=== PATIENT | female | born 1940 | race Caucasian/White ===

== ENCOUNTER 2018-01-24 19:07 | Emergency (ER) | END 2018-01-24 21:58 | disposition short-term general hospital (02) ==

== ENCOUNTER 2018-05-24 15:23 | Inpatient (IN) | payer MEDICARE, OTHER ==
[~2018-05-24] VITALS: Ht 154.9 cm; Wt 81.0 kg
[~2018-05-24 15:23] MED LIST: AMLO5TAB4 PO; ATEN50TA PO; CLOP75TA19 PO; ERGO500013 PO; EXEL46P TD; FURO40TA4 PO; ICOS1CAP PO; NATE120T PO; ROSU10TA55 PO
[2018-05-24 15:35] VITALS: Ht 154.9 cm; Wt 81.0 kg
--- NOTE | 2018-05-24 17:33 | ERD ---
ER Documentation Chief Complaint Chief Complaint NEEDS DIALYSIS, CATHETER NEEDS REPLACEMENT, +WEAKNESS/SWELLING/SKIN PALE HPI The patient is a 77-year-old female, presenting to the ER because of malfunctioning hemodialysis catheter on her right chest. Last hemodialysis was 2 days ago. The catheter was replaced recently about 2 weeks ago. She has been on hemodialysis for the last 3 months, Tuesday, Tuesday, Tuesday. She complains of dyspnea and leg edema for 1 day, had similar symptoms previously. She denies fever, chills, neck pain, chest pain, abdominal pain, vomiting, dysuria. She does not smoke nor drink Past medical history: Chronic kidney disease, dyslipidemia, diabetes mellitus, hypertension, CVA, CAD, history of CHF, dementia, chronic encephalopathy Past surgical history: Stent PCI ROS All systems reviewed and are negative except as per history of present illness. Medications Home Meds Reported Medications Rosuvastatin Calcium* (Crestor*) 10 Mg Tablet, 10 MG PO QHS, #30 TAB 05/24/18 Rivastigmine* Patch (Exelon* Patch) 4.6 Mg/24 Hr Patch.td24, 1 PATCH TD DAILY, PATCH 05/24/18 Nateglinide* (Nateglinide*) 120 Mg Tablet, 120 MG PO AC MEALS, TAB 05/24/18 Icosapent Ethyl (VASCEPA) 1 Gm Capsule, 2 GM PO DAILY, CAP 05/24/18 Furosemide* (Furosemide*) 40 Mg Tablet, 40 MG PO DAILY, TAB 05/24/18 Ergocalciferol (Vitamin D2) (VITAMIN D2) 50,000 Unit Capsule, 75968 UNIT PO Q MON, CAP 05/24/18 Clopidogrel Bisulfate* (Clopidogrel Bisulfate*) 75 Mg Tablet, 75 MG PO DAILY, #30 TAB 05/24/18 Atenolol* (Atenolol*) 50 Mg Tablet, 50 MG PO DAILY, #30 TAB 05/24/18 Amlodipine Besylate* (Norvasc*) 5 Mg Tablet, 5 MG PO BID, TAB 05/24/18 Discontinued Reported Medications Furosemide* (Furosemide*) 40 Mg Tablet, 40 MG PO DAILY, TAB 01/24/18 Icosapent Ethyl (VASCEPA) 1 Gm Capsule, 2 GM PO DAILY, CAP 01/24/18 Rosuvastatin Calcium* (Crestor*) 10 Mg Tablet, 10 MG PO QHS, #30 TAB 01/24/18 Nateglinide* (Nateglinide*) 120 Mg Tablet, 120 MG PO AC MEALS, TAB 01/24/18 Ergocalciferol (Vitamin D2) (VITAMIN D2) 50,000 Unit Capsule, 48558 UNIT PO Q MON, CAP 01/24/18 Rivastigmine* Patch (Exelon* Patch) 4.6 Mg/24 Hr Patch.td24, 1 PATCH TD DAILY, PATCH 01/24/18 Amlodipine Besylate* (Norvasc*) 5 Mg Tablet, 5 MG PO BID, TAB 01/24/18 Atenolol* (Atenolol*) 50 Mg Tablet, 50 MG PO DAILY, #30 TAB 01/24/18 Clopidogrel Bisulfate* (Clopidogrel Bisulfate*) 75 Mg Tablet, 75 MG PO DAILY, #30 TAB 01/24/18 Allergies Allergies: Coded Allergies: No Known Allergy (Verified , PER RN, 05/24/18) Uncoded Allergies: CHICKEN (Allergy, Mild, RASHES, 02/26/08) PMhx/Soc History of Surgery: Yes (angiogram, kidney sx, stents) Anesthesia Reaction: No Hx Neurological Disorder: Yes (HAD CVA) Hx Respiratory Disorders: Yes (previous smoker 1/2 PPD quit 30 years ago) Hx Cardiac Disorders: Yes (HTN, DYSLIPIDEMIA, CAD, STENTS) Hx Psychiatric Problems: No Hx Miscellaneous Medical Probl: Yes (angiogram,stents,ME,CAD,HTN,CHF,on HD,dementia,CVA 01/2018) Hx Alcohol Use: No Hx Substance Use: No Hx Tobacco Use: No Physical Exam Vitals Vital Signs Date Temp Pulse Resp B/P (MAP) Pulse Ox O2 O2 Flow FiO2 Time Delivery Rate 05/24/18 98.8 83 27 173/83 100 Nasal 2.0 23:03 (113) Cannula 05/24/18 92 24 180/86 97 Nasal 21:00 (117) Cannula 05/24/18 88 29 178/95 100 Nasal 19:34 (122) Cannula 05/24/18 Nasal 2 18:07 Cannula 05/24/18 98.8 79 20 166/74 100 Room Air 17:50 (104) 05/24/18 97.7 78 20 191/81 99 15:35 (117) Physical Exam Const: No acute distress. Head: Atraumatic. Eyes: Normal Conjunctiva. ENT: Normal External Ears, Nose and Mouth. Neck: Full range of motion. No meningismus. Resp: Bibasilar crackle Cardio: Irregularly irregular Abd: Soft, non distended, normal bowel sounds, non tender. Skin: No petechiae or rashes. Back: No midline or flank tenderness. Ext: Mild bilateral leg edema, no calf tenderness Neur: Awake and alert. No focal deficit Psych: Demented Result Diagram: 05/24/18180205/24/181802 Results 24 hrs Laboratory Tests Test 05/24/18 18:03 White Blood Count 8.8 10^3/ul Red Blood Count 3.37 10^6/ul Hemoglobin 8.6 g/dl Hematocrit 29.6 % Mean Corpuscular Volume 87.8 fl Mean Corpuscular Hemoglobin 25.5 pg Mean Corpuscular Hemoglobin Concent 29.1 g/dl Red Cell Distribution Width 17.5 % Platelet Count 358 10^3/UL Mean Platelet Volume 9.1 fl Immature Granulocytes % 0.500 % Neutrophils % 71.5 % Lymphocytes % 17.8 % Monocytes % 6.5 % Eosinophils % 3.1 % Basophils % 0.6 % Nucleated Red Blood Cells % 0.0 /100WBC Immature Granulocytes # 0.040 10^3/ul Neutrophils # 6.3 10^3/ul Lymphocytes # 1.6 10^3/ul Monocytes # 0.6 10^3/ul Eosinophils # 0.3 10^3/ul Basophils # 0.1 10^3/ul Nucleated Red Blood Cells # 0.0 10^3/ul Prothrombin Time 12.2 Sec Prothrombin Time Ratio 1.0 INR International Normalized Ratio 0.89 Activated Partial Thromboplast Time 27.1 Sec Sodium Level 137 mmol/L Potassium Level 5.3 mmol/L Chloride Level 104 mmol/L Carbon Dioxide Level 25 mmol/L Anion Gap 8 Blood Urea Nitrogen 28 mg/dl Creatinine 4.16 mg/dl Est Glomerular Filtrat Rate mL/min mL/min Glucose Level 92 mg/dl Calcium Level 10.4 mg/dl Troponin I < 0.012 ng/ml Current Medications Medications Dose Sig/Tawana Start Time Status Last (Trade) Ordered Route PRN Stop Time Admin Dose Reason Admin Alteplase, 2 mg ONCE ONCE 05/24/18 DC 05/24/18 Recombinant CATHETER 19:30 19:39 (Cathflo 05/24/18 19:31 (Activase)) 25 mg ONCE ONCE 05/24/18 DC 05/24/18 Diphenhydrami IV 19:30 19:46 ne HCl 05/24/18 19:31 (Benadryl) Bumetanide 2 mg NOW ONCE 05/24/18 DC (Bumex) IV 20:00 05/24/18 20:00 Metolazone 10 mg ONCE ONCE 05/24/18 DC 05/24/18 (Zaroxolyn) PO 19:30 20:45 05/24/18 19:31 0.5 inch ONCE ONCE 05/24/18 DC 05/24/18 Nitroglycerin TD 19:30 19:47 05/24/18 19:31 (Nitroglyceri n 2% Oint) Bumetanide 2 25 ml @ 50 NOW ONCE 05/24/18 DC 05/24/18 mg/ Dextrose mls/hr IV 20:00 20:45 05/24/18 20:29 Procedures/[place] [id number] Radiology Main Line: [phone] DIAGNOSTIC IMAGING REPORT Patient: MARY NOVOA : 1940 Age: 77 Sex: F MR #: [id number] DOS: 05/24/18 1747 Ordering MD: TOYA SINGH MD Location: E/R Room/Bed: PROCEDURE: XR 1 view Chest. CLINICAL INDICATION: Chest pain. TECHNIQUE: Portable Single frontal view of the chest was obtained. COMPARISON: DR CHO 05/11/2018 FINDINGS: There is a stable right double-lumen central venous catheter with tip in the SVC. Moderate cardiomegaly with extensive aortic calcifications. Mild pulmonary vascular ingestion. Stable mild to moderate bilateral pleural effusions with atelectasis/consolidations. No pneumothorax is identified. The osseous structures are intact. There is mild to moderate spondylosis/enthesopathy within the thoracic spine. IMPRESSION: No significant change. Stable right double-lumen central venous catheter with tip in the SVC. Moderate cardiomegaly with extensive aortic calcifications. Mild pulmonary vascular ingestion. Stable mild to moderate bilateral pleural effusions with atelectasi s/consolidations. Further findings as detailed above. RPTAT: HVF .Brien Mathews MD, Date Time Electronically viewed and signed by .Brien Mathews MD, MD on 05/24/2018 18:39 .F/ CC: TOYA SINGH MD [phone] EKG: Read by emergency physician Rate/Rhythm: Atrial fibrillation 78 beats/min QRS, ST, T-waves: No ST elevation, no T inversion, LAD, lateral ST and T abnormality Impression: Abnormal EKG Consultation: I discussed the patient with her vascular surgeon Dr. Meredith, who recommended TPA, if the TPA does not work he would be able to intervene surgically Procedure: She was treated with TPA via her dialysis catheter with good response, good blood return. MEDICAL MAKING DECISION: The patient is an 77-year-old female, presenting with acute fluid overload, acute malfunctioning hemodialysis catheter, acute mild elevated potassium. He was treated with Bumex 2 mg IV, metolazone 10 mg p.o., half an inch of nitroglycerin ointment to acute chest wall for acute fluid overload as recommended by her pickle maker Dr Philip. She was treated with Benadryl 25-day, IV for her pruritus with good response The differential diagnoses considered include but are not limited to asthma, COPD, pneumonia, pulmonary embolus, pleural effusion, congestive heart failure. Departure Diagnosis: Primary Impression: Dialysis catheter clot or failure Additional Impressions: Fluid overload Hyperkalemia Anemia Condition: Stable Comments I discussed the findings with the patient. I discussed the patient with her pickle maker Dr. Philip at 7:15 PM. who was made aware of the lab, the treatment, the patient condition. The patient is admitted to Tel Disclaimer: Inadvertent spelling and grammatical errors are likely due to EHR/dictation software use and do not reflect on the overall quality of patient care. Also, please note that the electronic time recorded on this note does not necessarily reflect the actual time of the patient encounter. TOYA SINGH MD May 24, 2018 17:33
[2018-05-24] MEDS ORDERED: AMLO5TAB4 PO (18:22)
[2018-05-24] MEDS ORDERED: ATEN50TA PO (18:23)
[2018-05-24] MEDS ORDERED: CLOP75TA19 PO (18:23)
[2018-05-24] MEDS ORDERED: ERGO500013 PO (18:24)
[2018-05-24] MEDS ORDERED: FURO40TA4 PO (18:24)
[2018-05-24] MEDS ORDERED: ICOS1CAP PO (18:25)
[2018-05-24] MEDS ORDERED: NATE120T PO (18:25)
[2018-05-24] MEDS ORDERED: EXEL46P TD (18:26)
[2018-05-24] MEDS ORDERED: ROSU10TA55 PO (18:27)
[2018-05-24] MEDS ORDERED: ALTEPLASE (CATHFLO) 2 MG INJ CATHETER ONE (19:30)
[2018-05-24] MEDS ORDERED: NITROGLYCERIN 2% 1 GM OINT PKT TD ONE (19:30)
[2018-05-24] MEDS ORDERED: DIPHENHYDRAMINE 50 MG INJ IV ONE (19:30)
[2018-05-24] MEDS ORDERED: METOLAZONE 10 MG TAB PO ONE (19:30)
[2018-05-24] MEDS ORDERED: BUMETANIDE 1 MG INJ IV ONE (20:00)
[2018-05-24] MEDS ORDERED: BUMETANIDE 2 MG in DEXTROSE 5% 17 ML IV ONE (20:00)
[2018-05-25] VITALS (11 sets, daily range): BP systolic 144–167; BP diastolic 62–97; PULSE 59–90; RESP 18–19
[2018-05-25] MEDS ORDERED: GLUCOSE GEL 15 GRAM TUBE PO PRN ×2 (01:30)
[2018-05-25] MEDS ORDERED: DEXTROSE 50% 50 ML SYRINGE IV PRN ×2 (01:30)
[2018-05-25] MEDS ORDERED: GLUCOSE GEL 15 GRAM TUBE BUCCAL PRN (01:30)
[2018-05-25] MEDS ORDERED: GLUCAGON 1 MG INJ IM PRN (01:30)
[2018-05-25] MEDS: ACCU-CHEK XX SCH (02:00)
[2018-05-25] MEDS: ACETAMINOPHEN 325 MG TAB PO PRN ×3 (02:43→15:29)
[2018-05-25] MEDS ORDERED: HYDROCODONE/APAP (5/325) TAB PO ONE (07:14)
[2018-05-25] MEDS: NATEGLINIDE 120 MG TAB PO SCH ×3 (07:21→17:27)
[2018-05-25] MEDS: ATENOLOL 50 MG TAB PO SCH (08:09)
[2018-05-25] MEDS: CLOPIDOGREL 75 MG TAB PO SCH (08:09)
[2018-05-25] MEDS: AMLODIPINE 5 MG TAB PO SCH ×2 (08:10→21:00)
[2018-05-25] MEDS: RIVASTIGMINE 4.6MG/24H PATCH TRANSDERM SCH (08:10)
[2018-05-25] MEDS: FUROSEMIDE 40 MG TAB PO SCH (08:10)
--- NOTE | 2018-05-25 08:22 | HP ---
DATE OF ADMISSION: 05/24/2018 CHIEF COMPLAINT: Volume overload, swelling, possible dialysis catheter malfunction. HISTORY OF PRESENT ILLNESS: This is a 77-year-old female with a past medical history of hypertension , diabetes, history of end-stage renal disease on dialysis Tuesday, Tuesday, Tuesday with access Perm -A-Cath, history of coronary artery disease, history of atrial fibrillation, history of cerebrovascul ar accident, history of dyslipidemia who presents to [facility] Emergency Room with shortness of breath and possible malfunctioning dialysis catheter. The patient stated last hemodial ysis was approximately 2 days ago. The patient over the last 24 Hours has been complaining of dyspne a, leg edema. She denies any fevers, chills, nausea, vomiting. As a result, she presented to the em ergency room. Upon arrival, the patient had a chest x-ray, which showed findings of cardiomegaly, mi ld pulmonary vascular congestion, atelectasis. In the emergency room, the patient was given diuretic therapy and admitted to telemetry for evaluation. Upon my evaluation of the patient at this time, the patient is complaining of generalized back pain a nd shoulder pain. There is no noted hemoptysis, hematemesis, or hematochezia. Please also note that the patient is confused and history was obtained through a metal bench patternmaker. PAST MEDICAL HISTORY: History of coronary artery disease, diabetes, hypertension, history of cerebro vascular accident and history of atrial fibrillation. PAST SURGICAL HISTORY: Status post Perm-A-Cath placement, status post cardiac catheterization. ALLERGIES: NO KNOWN DRUG ALLERGIES. FAMILY HISTORY: No family history of kidney disease. SOCIAL HISTORY: She does not drink, smoke or do drugs. MEDICATIONS: The patient's medications have been reviewed. REVIEW OF SYSTEMS: A 14-point review of systems was conducted. Pertinent positives stated in HPI, o therwise negative. Please note the patient also is confused. A lot of history was obtained by speak ing to patient's family and through metal bench patternmaker. PHYSICAL EXAMINATION: VITAL SIGNS: Blood pressure is 145/84, respirations 19, pulse 67, temperature 97.7. HEENT: Head is normocephalic. NECK: Supple. HEART: Irregularly irregular. LUNGS: Show diminished breath sounds at the base. ABDOMEN: Soft, nontender to palpation without rebound or guarding. EXTREMITIES: Negative for clubbing, cyanosis. Positive edema. DERMATOLOGIC: No rashes. MUSCULOSKELETAL: No joint effusion. NEUROLOGIC: Limited exam, no obvious focal deficits. LABORATORY DATA: Shows sodium 137, potassium 5.3, BUN 28, creatinine 4.16, calcium 10.4. White coun t 8.8, hemoglobin 8.6, platelet count is 358. ASSESSMENT AND PLAN: 1. Volume overload. Etiology is secondary to end-stage renal disease, with inadequate ultrafiltrati on. Plan at this point is to have hemodialysis with a goal of 2 to 3 liters of fluid removal. We wi ll continue to monitor closely. I encouraged to minimize free water intake. 2. Acute on chronic heart failure. Etiology is secondary to end-stage renal disease as stated above . Continue medical management. Continue ultrafiltration dialysis. 3. End-stage renal disease. The patient is on dialysis Tuesday, Tuesday, and Tuesday. Plan is for hemodialysis today. We will dialyze for 3 hours 2k bath, calcium 2.5. 4. Access. The patient's Perm-A-Cath was recently exchanged 2 weeks ago. If malfunctioning, we jey l consult vascular surgery for [id number] placement. 5. Hyperkalemia. The patient will be dialyzed on 2 potassium bath. 6. Anemia. Monitor hemoglobin and hematocrit levels. Continue Epogen. 7. Mineral bone disorder, monitor calcium and phosphorus levels. 8. Hypertension. Continue current blood pressure regimen. 9. Atrial fibrillation, rate controlled. We will place a cardiology consult for evaluation. The pa tient may require long-term anticoagulation. 10. History of coronary artery disease. Continue medical management. 11. History of cerebrovascular accident. Continue current treatment plan. 12. Diabetes. Continue current insulin regimen. 13. Dyslipidemia. Continue statin therapy. 14. Dementia. Continue Exelon patch. 15. Gastrointestinal and deep vein thrombosis prophylaxis. Dictated By: STEVE REN DO NR/NTS Conf#: [id number] DID#: [id number] CC: SILVIA RENTERIA DO;*EndCC*
[2018-05-25] MEDS: INSULIN ASPART [NOVOLOG] 3 ML PEN SC SCH ×4 (08:48→21:00)
--- NOTE | 2018-05-25 10:32 | CONS ---
Assessment/Plan Cardiology NYHA: III Heart Failure Type: Acute on Chronic Heart Failure Type: Diastolic Assessment/Plan Hospital Course (Demo Recall) Assessment: Acute on chronic diastolic heart failure - secondary to inadequate ultrafiltration Coronary artery disease - details unknown, clinically stable Atrial fibrillation - likely chronic, CHADS2 score of 5 End-stage renal disease Hypertension Diabetes mellitus History of stroke Recommendations: -volume management via hemodialysis as per nephrology -continue anti-hypertensive medications, adjust as needed -continue statin -continue clopidogrel for now, will need to convert to chronic anticoagulation for atrial fibrillation thromboembolic prophylaxis if Permacath exchange not required (currently question of whether there is Permacath malfunction Consultation Date/Type/Reason Admit Date/Time May 24, 2018 at 22:27 Type of Consult Cardiology Reason for Consultation congestive heart failure Date/Time of Note DATE: 05/25/18 TIME: 10:26 Hx of Present Illness The patient is a 77 year-old female with end-stage renal disease who presents with shortness of breath and lower extremity edema. EKG shows atrial fibrillation with controlled ventricular rates, Q waves in V1- V3, and no acute ischemic changes. Troponin is negative. 14 point review of systems negative other than per HPI. Past Medical History Chronic diastolic heart failure Coronary artery disease Atrial fibrillation End-stage renal disease Hypertension Diabetes mellitus History of stroke Home Meds Reported Medications Rosuvastatin Calcium* (Crestor*) 10 Mg Tablet, 10 MG PO QHS, #30 TAB 05/24/18 Rivastigmine* Patch (Exelon* Patch) 4.6 Mg/24 Hr Patch.td24, 1 PATCH TD DAILY, PATCH 05/24/18 Nateglinide* (Nateglinide*) 120 Mg Tablet, 120 MG PO AC MEALS, TAB 05/24/18 Icosapent Ethyl (VASCEPA) 1 Gm Capsule, 2 GM PO DAILY, CAP 05/24/18 Furosemide* (Furosemide*) 40 Mg Tablet, 40 MG PO DAILY, TAB 05/24/18 Ergocalciferol (Vitamin D2) (VITAMIN D2) 50,000 Unit Capsule, 51486 UNIT PO Q MON, CAP 05/24/18 Clopidogrel Bisulfate* (Clopidogrel Bisulfate*) 75 Mg Tablet, 75 MG PO DAILY, #30 TAB 05/24/18 Atenolol* (Atenolol*) 50 Mg Tablet, 50 MG PO DAILY, #30 TAB 05/24/18 Amlodipine Besylate* (Norvasc*) 5 Mg Tablet, 5 MG PO BID, TAB 05/24/18 Discontinued Reported Medications Furosemide* (Furosemide*) 40 Mg Tablet, 40 MG PO DAILY, TAB 01/24/18 Icosapent Ethyl (VASCEPA) 1 Gm Capsule, 2 GM PO DAILY, CAP 01/24/18 Rosuvastatin Calcium* (Crestor*) 10 Mg Tablet, 10 MG PO QHS, #30 TAB 01/24/18 Nateglinide* (Nateglinide*) 120 Mg Tablet, 120 MG PO AC MEALS, TAB 01/24/18 Ergocalciferol (Vitamin D2) (VITAMIN D2) 50,000 Unit Capsule, 34554 UNIT PO Q MON, CAP 01/24/18 Rivastigmine* Patch (Exelon* Patch) 4.6 Mg/24 Hr Patch.td24, 1 PATCH TD DAILY, PATCH 01/24/18 Amlodipine Besylate* (Norvasc*) 5 Mg Tablet, 5 MG PO BID, TAB 01/24/18 Atenolol* (Atenolol*) 50 Mg Tablet, 50 MG PO DAILY, #30 TAB 01/24/18 Clopidogrel Bisulfate* (Clopidogrel Bisulfate*) 75 Mg Tablet, 75 MG PO DAILY, #30 TAB 01/24/18 Medications Current Medications Amlodipine Besylate (Norvasc) 5 mg BID PO Last administered on 05/25/18at 08:10; Admin Dose 5 MG; Start 05/25/18 at 09:00 Atenolol (Tenormin) 50 mg DAILY PO Last administered on 05/25/18at 08:09; Admin Dose 50 MG; Start 05/25/18 at 09:00 Clopidogrel Bisulfate (plaVIX) 75 mg DAILY PO Last administered on 05/25/18at 08:09; Admin Dose 75 MG; Start 05/25/18 at 09:00 Ergocalciferol (Drisdol) 50,000 unit Mo@0900 PO ; Start 05/29/18 at 09:00 Furosemide (Lasix) 40 mg DAILY PO Last administered on 05/25/18at 08:10; Admin Dose 40 MG; Start 05/25/18 at 09:00 Nateglinide (Starlix) 120 mg AC MEALS PO Last administered on 05/25/18at 07:21; Admin Dose 120 MG; Start 05/25/18 at 07:00 Rivastigmine Tartrate (Exelon 4.6 Mg/ 24 Hr Patch) 1 patch DAILY TRANSDERM Last administered on 05/25/18at 08:10; Admin Dose 1 PATCH; Start 05/25/18 at 09:00 Fish Oil (Fish Oil) 1,000 mg Q12 PO ; Start 05/25/18 at 10:00 Atorvastatin Calcium (Lipitor) 40 mg DAILY@21 PO ; Start 05/25/18 at 21:00 Diagnostic Test (Pha) (Accu-Chek) 1 ea 02 XX ; Start 05/25/18 at 02:00 Insulin Aspart (Novolog Insulin Pen) NOVOLOG *MILD* ALGORITHM WITH MEALS BEDTIME SC Last administered on 05/25/18at 08:48; Admin Dose 1 UNIT; Start 05/25/18 at 08:00 Acetaminophen (Tylenol Tab) 650 mg Q6H PRN PO MILD PAIN(1-3)OR ELEVATED TEMP Last administered on 05/25/18at 07:17; Admin Dose 650 MG; Start 05/25/18 at 01:00 Miscellaneous Information 1 ea NOTE XX ; Start 05/25/18 at 01:30 Glucose (Glutose) 15 gm Q15M PRN PO DECREASED GLUCOSE; Start 05/25/18 at 01:30 Glucose (Glutose) 22.5 gm Q15M PRN PO DECREASED GLUCOSE; Start 05/25/18 at 01:30 Dextrose (D50w Syringe) 25 ml Q15M PRN IV DECREASED GLUCOSE; Start 05/25/18 at 01:30 Dextrose (D50w Syringe) 50 ml Q15M PRN IV DECREASED GLUCOSE; Start 05/25/18 at 01:30 Glucagon (Glucagen) 1 mg Q15M PRN IM DECREASED GLUCOSE; Start 05/25/18 at 01:30 Glucose (Glutose) 15 gm Q15M PRN BUCCAL DECREASED GLUCOSE; Start 05/25/18 at 01:30 Allergies: Coded Allergies: No Known Allergy (Verified , PER RN, 05/24/18) Uncoded Allergies: CHICKEN (Allergy, Mild, RASHES, 02/26/08) Family History Significant Family History: no pertinent family hx Social History Smoking Status: Former smoker Exam/Review of Systems Vital Signs Vitals Vital Signs Date Temp Pulse Resp B/P (MAP) Pulse Ox O2 O2 Flow FiO2 Time Delivery Rate 05/25/18 78 08:07 05/25/18 97.7 19 145/84 97 07:10 (104) 05/24/18 Nasal 2.0 23:30 Cannula Labs Result Diagram: 05/24/18 1803 05/24/18 1803 Results 24hrs Laboratory Tests Test 05/24/18 18:03 05/25/18 07:24 05/25/18 08:08 05/25/18 08:44 White Blood Count 8.8 # Red Blood Count 3.37 L Hemoglobin 8.6 L Hematocrit 29.6 L Mean Corpuscular 87.8 Volume Mean Corpuscular 25.5 L Hemoglobin Mean Corpuscular 29.1 L Hemoglobin Concent Red Cell 17.5 H Distribution Width Platelet Count 358 # Mean Platelet Volume 9.1 Immature 0.500 H Granulocytes % Neutrophils % 71.5 Lymphocytes % 17.8 Monocytes % 6.5 Eosinophils % 3.1 Basophils % 0.6 Nucleated Red Blood 0.0 Cells % Immature 0.040 H Granulocytes # Neutrophils # 6.3 Lymphocytes # 1.6 Monocytes # 0.6 Eosinophils # 0.3 Basophils # 0.1 Nucleated Red Blood 0.0 Cells # Prothrombin Time 12.2 Prothrombin Time 1.0 Ratio INR International 0.89 Normalized Ratio Activated 27.1 Partial Thromboplast Time Sodium Level 137 Potassium Level 5.3 H Chloride Level 104 Carbon Dioxide Level 25 Anion Gap 8 Blood Urea Nitrogen 28 H Creatinine 4.16 H Est Glomerular Filtrat Rate mL/min Glucose Level 92 Calcium Level 10.4 H Troponin I < 0.012 Bedside Glucose 100 158 Total Bilirubin 0.0 L Direct Bilirubin 0.00 Indirect Bilirubin 0.0 Aspartate Amino 14 L Transf (AST/SGOT) Alanine 12 L Aminotransferase (AL T/SGPT) Alkaline Phosphatase 65 Total Protein 6.3 Albumin 3.2 L Medications Medications Current Medications Amlodipine Besylate (Norvasc) 5 mg BID PO Last administered on 05/25/18at 08:10; Admin Dose 5 MG; Start 05/25/18 at 09:00 Atenolol (Tenormin) 50 mg DAILY PO Last administered on 05/25/18at 08:09; Admin Dose 50 MG; Start 05/25/18 at 09:00 Clopidogrel Bisulfate (plaVIX) 75 mg DAILY PO Last administered on 05/25/18at 08:09; Admin Dose 75 MG; Start 05/25/18 at 09:00 Ergocalciferol (Drisdol) 50,000 unit Mo@0900 PO ; Start 05/29/18 at 09:00 Furosemide (Lasix) 40 mg DAILY PO Last administered on 05/25/18at 08:10; Admin D ose 40 MG; Start 05/25/18 at 09:00 Nateglinide (Starlix) 120 mg AC MEALS PO Last administered on 05/25/18at 07:21; Admin Dose 120 MG; Start 05/25/18 at 07:00 Rivastigmine Tartrate (Exelon 4.6 Mg/ 24 Hr Patch) 1 patch DAILY TRANSDERM Last administered on 05/25/18at 08:10; Admin Dose 1 PATCH; Start 05/25/18 at 09:00 Fish Oil (Fish Oil) 1,000 mg Q12 PO ; Start 05/25/18 at 10:00 Atorvastatin Calcium (Lipitor) 40 mg DAILY@21 PO ; Start 05/25/18 at 21:00 Diagnostic Test (Pha) (Accu-Chek) 1 ea 02 XX ; Start 05/25/18 at 02:00 Insulin Aspart (Novolog Insulin Pen) NOVOLOG *MILD* ALGORITHM WITH MEALS B EDTIME SC Last administered on 05/25/18at 08:48; Admin Dose 1 UNIT; Start 05/25/18 at 08:00 Acetaminophen (Tylenol Tab) 650 mg Q6H PRN PO MILD PAIN(1-3)OR ELEVATED TEMP Last administered on 05/25/18at 07:17; Admin Dose 650 MG; Start 05/25/18 at 01:00 Miscellaneous Information 1 ea NOTE XX ; Start 05/25/18 at 01:30 Glucose (Glutose) 15 gm Q15M PRN PO DECREASED GLUCOSE; Start 05/25/18 at 01:30 Glucose (Glutose) 22.5 gm Q15M PRN PO DECREASED GLUCOSE; Start 05/25/18 at 01:30 Dextrose (D50w Syringe) 25 ml Q15M PRN IV DECREASED GLUCOSE; Start 05/25/18 at 01:30 Dextrose (D50w Syringe) 50 ml Q15M PRN IV DECREASED GLUCOSE; Start 05/25/18 at 01:30 Glucagon (Glucagen) 1 mg Q15M PRN IM DECREASED GLUCOSE; Start 05/25/18 at 01:30 Glucose (Glutose) 15 gm Q15M PRN BUCCAL DECREASED GLUCOSE; Start 05/25/18 at 01:30 SIMEON ANGELO MD May 25, 2018 10:32
[2018-05-25] MEDS: FISH OIL 1,000 MG CAP PO SCH ×2 (12:12→21:00)
[2018-05-25] MEDS ORDERED: EPOETIN 10000 UNITS/1 ML INJ (ESRD) SC ONE (17:00)
[2018-05-25] MEDS: LISINOPRIL 20 MG TAB PO SCH (17:08)
[2018-05-25] MEDS ORDERED: LORAZEPAM 2 MG INJ IV ONE (17:30)
[2018-05-25] MEDS ORDERED: ALTEPLASE (CATHFLO) 2 MG INJ CATHETER STA (18:16)
[2018-05-25] MEDS: ATORVASTATIN 40 MG TAB PO SCH (21:00)
[2018-05-25] MEDS ORDERED: NON-FORMULARY/PATIENT OWN MED (Rosuvastatin Calcium* (Crestor*) 10 MG) PO SCH (21:00)
[2018-05-25] MEDS: ONDANSETRON 4 MG INJ IV PRN (21:29)
[2018-05-26] VITALS (26 sets, daily range): BP systolic 84–190; BP diastolic 39–84; PULSE 44–80; RESP 18–22
[2018-05-26] MEDS: ONDANSETRON 4 MG INJ IV PRN (01:23)
[2018-05-26] MEDS: ACCU-CHEK XX SCH (02:00)
[2018-05-26] MEDS: HEPARIN 1000 UNITS/ML 10 ML INJ CATHETER SCH (04:05)
[2018-05-26] MEDS: INSULIN ASPART [NOVOLOG] 3 ML PEN SC SCH ×4 (08:00→21:00)
[2018-05-26] MEDS: ATENOLOL 50 MG TAB PO SCH (08:00)
[2018-05-26] MEDS: AMLODIPINE 5 MG TAB PO SCH ×2 (08:00→21:00)
[2018-05-26] MEDS: CLOPIDOGREL 75 MG TAB PO SCH (08:00)
[2018-05-26] MEDS: FUROSEMIDE 40 MG TAB PO SCH (08:00)
[2018-05-26] MEDS: RIVASTIGMINE 4.6MG/24H PATCH TRANSDERM SCH (08:00)
[2018-05-26] MEDS: FISH OIL 1,000 MG CAP PO SCH ×2 (08:06→22:07)
[2018-05-26] MEDS: NATEGLINIDE 120 MG TAB PO SCH ×3 (08:06→17:30)
[2018-05-26] MEDS: LISINOPRIL 20 MG TAB PO SCH (08:07)
--- NOTE | 2018-05-26 12:15 | PN ---
DATE: 05/26/2018 SUBJECTIVE: The patient is stable. Patient has episodes of agitation and confusion. The patient di d have hemodialysis yesterday. Dialysis catheter was noted to have poor blood flow rates. No other events noted. OBJECTIVE: VITAL SIGNS: Blood pressure is 100/51, respirations 22, pulse 74, temperature 98.6. HEENT: Head is normocephalic. NECK: Supple. HEART: Regular rate. LUNGS: Show diminished breath sounds at the base. ABDOMEN: Soft, nontender to palpation without rebound or guarding. EXTREMITIES: Negative for clubbing, cyanosis. Trace edema. DERMATOLOGIC: No rashes. MUSCULOSKELETAL: No joint effusion. NEUROLOGIC: No change in exam. MEDICATIONS: The patient's medications have been reviewed. LABORATORY DATA: Shows white count 15.5, hemoglobin 9.1, platelet count 334. Sodium 137, potassium 4.5, BUN 15, creatinine 2.62. ASSESSMENT AND PLAN: 1. Volume overload. Etiology of end-stage renal disease. The patient is status post ultrafiltratio n dialysis yesterday with ultrafiltration 3 liters. Clinically improving. Continue to monitor. 2. Acute on chronic heart failure secondary to end-stage renal disease, volume overload. Continue m edical management and monitor. 3. Leukocytosis, systemic inflammatory response syndrome. Etiology is unclear if this is an infecti on versus a reactive response. Plan is to place an ID consult for evaluation. Will consider repeat chest x-ray and monitor closely. 4. End-stage renal disease. The patient had hemodialysis yesterday. The patient was noted to have poor blood flow rates and dialysis catheter despite using TPA twice. We will place a vascular surger y consult for evaluation and possible catheter exchange. 5. Access. The patient had recently exchanged of PermCath 2 weeks ago. However, possibly malfunct ioning gait and as the patient despite TPA has poor blood flows. A vascular surgery consult was plac ed with Dr. Meredith. 6. Hyperkalemia, improved. Continue dialysis low potassium bath. 7. Anemia. Monitor hemoglobin and hematocrit levels. Continue Epogen. 8. Questionable bloody stool. The patient had episode of hematochezia yesterday. Stool for OB, how ever, was checked and negative. We will follow up with GI consult and monitor. 9. Mineral bone disorder. Monitor calcium and phosphorus levels. 10. Hypertension. Blood pressure controlled. Continue blood pressure regimen. 11. Atrial fibrillation, rate controlled. Continue medical management. The patient may require reg g-term anticoagulation therapy. 12. Coronary artery disease Continue current treatment plan. 13. History of CVA, continue current treatment plan. 14. Diabetes. Continue current insulin regimen. 15. Dyslipidemia. Continue statin therapy. 16. Acute encephalopathy and dementia, etiology toxic metabolic. Continue his Exelon patch. 17. Gastrointestinal and deep venous thrombosis prophylaxis. Dictated By: STEVE REN DO NR/NTS Conf#: [id number] DID#: [id number] CC: SILVIA RENTERIA DO;*EndCC*
[2018-05-26] MEDS: LUBIPROSTONE 24 MCG CAP PO SCH ×2 (13:00→22:06)
--- NOTE | 2018-05-26 13:21 | CONS ---
DATE OF ADMISSION: 05/24/2018 DATE OF CONSULTATION: 05/26/2018 TYPE OF CONSULTATION: Infectious disease. REASON FOR CONSULTATION: Antibiotic management. HISTORY OF PRESENT ILLNESS: Allen Martel is a 77-year-old female who presented to the Emergency R [facility]om with malfunctioning hemodialysis catheter in her right chest. She complains of weakness. Her la st dialysis was 2 days prior to admission. The catheter was recently replaced 2 weeks ago. She has been on hemodialysis for the last 3 months. She complains of dyspnea and leg edema for 1 day. She d enies fever or chills. PAST SURGICAL PROBLEMS: Include the stent, PCI and hemodialysis catheter placement. PAST MEDICAL HISTORY: Includes: 1. Chronic renal disease. 2. Dyslipidemia. 3. Diabetes mellitus. 4. Hypertension. 5. Cerebrovascular accident. 6. Coronary artery disease with CHF. 7. Dementia. 8. Chronic encephalopathy. Patient also has a history of dementia and CVA, 01/28/2018. On admission, white count was 8.8, H and H of 8.6 and 29.6, platelet count 358,000. She had 72% polys no neutrophils. BUN and creatinine 28 /4.16, glucose of 92. White count today is 15.5, H and H 9.1 and 31, platelet count 334,000. Occult blood was negative. BUN and creatinine 15/2.62. Chest x-ray: No significant change, stable right double lumen central venous catheter with tip in the SVC, mild pulmonary congestion. HOSPITAL COURSE: The patient was seen by Dr. Ribeiro for volume overload, possible dialysis catheter malfunction. The patient was hemodialyzed to minimize free water intake. Patient was seen by [facility] with volume management via hemodialysis. The patient is currently off antibiotic therapy. PHYSICAL EXAMINATION: GENERAL: The patient is an elderly appearing female who is demented, in no acute distress. VITAL SIGNS: Stable. She is afebrile. SKIN: Without generalized rash. HEENT: Within normal limits. NECK: Supple. LYMPH NODES: None palpable. CHEST: Decreased breath sounds at the bases. HEART: Irregularly irregular rhythm. ABDOMEN: Soft, nontender, without organosplenomegaly or masses. EXTREMITIES: Without cyanosis, clubbing, or edema. RECTAL AND GENITAL: Deferred. NEUROLOGIC: No focal neurological abnormality. IMPRESSION AND PLAN: The patient comes in with possible dialysis catheter malfunction, which could b e on the basis of infection; however, aside from elevated white count at present time, I do not see a ny evidence of infection. Her temperature 98.6. We will continue to observe. I think we will get 2 sets of blood cultures. I will dictate my findings to the hospitalist and to Dr. Ribeiro and Dr. Andrea rodriguez. Dictated By: CEDRIC CEDEÑO MD, JD/ILSA Conf#: [id number] DID#: [id number] CC: SILVIA RENTERIA DO;*EndCC*
--- NOTE | 2018-05-26 13:50 | CONS ---
Assessment/Plan Cardiology NYHA: III Heart Failure Type: Acute on Chronic Heart Failure Type: Diastolic Assessment/Plan Hospital Course (Demo Recall) Assessment: Acute on chronic diastolic heart failure - secondary to inadequate ultrafiltration Coronary artery disease - details unknown, clinically stable Atrial fibrillation - likely chronic, CHADS2 score of 5 End-stage renal disease Hypertension Diabetes mellitus History of stroke Recommendations: -volume management via hemodialysis as per nephrology -continue anti-hypertensive medications, adjust as needed -continue statin -continue clopidogrel for now, will need to convert to chronic anticoagulation for atrial fibrillation thromboembolic prophylaxis if Permacath exchange not required (currently question of whether there is Permacath malfunction Consultation Date/Type/Reason Admit Date/Time May 24, 2018 at 22:27 Initial Consult Date Type of Consult Cardiology Date/Time of Note DATE: 05/26/18 TIME: 13:49 24 HR Interval Summary Free Text/Dictation Had hemodialysis yesterday. Catheter reported to have slow blood flow rates. Awaiting vascular surgery evaluation for possible dialysis catheter malfunction and need for replacement. Detailed Summary Additional Comments 14 point review of systems without changes. Exam/Review of Systems Vital Signs Vitals Vital Signs Date Temp Pulse Resp B/P (MAP) Pulse Ox O2 O2 Flow FiO2 Time Delivery Rate 05/26/18 54 12:06 05/26/18 105/43 11:05 (63) 05/26/18 Nasal 2.0 08:00 Cannula 05/26/18 98.6 22 07:37 05/26/18 100 04:00 Intake and Output 05/25/18 05/25/18 05/26/18 1515:00 23:00 07:00 IntakeIntake Total 200 ml 250 ml OutputOutput Total 3 ml 3400 ml BalanceBalance 197 ml -3150 ml Exam Exam Constitutional: alert; No oriented, No distress Neck: jvd (8cm) Respiratory: crackles/rales (to mid lungs ); No clear to auscultation Cardiovascular: regular rate and rhythm, systolic murmur (2/6 CURT); No edema Gastrointestinal: soft, non-tender; No distended Neurological: nl mental status, nl speech Labs Result Diagram: 05/26/1852105/26/1822 Results 24hrs Laboratory Tests Test 05/25/18 16:09 05/25/18 17:20 05/25/18 21:27 05/26/18 05:22 Iron Level 45 Total Iron Binding 255 Capacity Percent Iron 18 L Saturation Ferritin 56.5 Bedside Glucose 84 88 White Blood Count 15.5 #H Red Blood Count 3.46 L Hemoglobin 9.1 L Hematocrit 31.0 L Mean Corpuscular 89.6 Volume Mean Corpuscular 26.3 L Hemoglobin Mean Corpuscular 29.4 L Hemoglobin Concent Red Cell 17.0 H Distribution Width Platelet Count 334 Mean Platelet Volume 9.3 Immature 0.600 H Granulocytes % Neutrophils % 88.5 H Lymphocytes % 6.5 L Monocytes % 3.3 Eosinophils % 0.8 Basophils % 0.3 Nucleated Red Blood 0.0 Cells % Immature 0.090 H Granulocytes # Neutrophils # 13.7 H Lymphocytes # 1.0 Monocytes # 0.5 Eosinophils # 0.1 Basophils # 0.0 Nucleated Red Blood 0.0 Cells # Sodium Level 137 Potassium Level 4.5 Chloride Level 96 L Carbon Dioxide Level 30 Anion Gap 11 Blood Urea Nitrogen 15 # Creatinine 2.62 #H Est Glomerular Filtrat Rate mL/min Glucose Level 109 Calcium Level 9.1 Phosphorus Level 3.7 Magnesium Level 1.7 Test 05/26/18 08:02 05/26/18 12:03 Bedside Glucose 117 71 Medications Medications Current Medications Amlodipine Besylate (Norvasc) 5 mg BID PO Last administered on 05/26/18 08:00; Admin Dose 5 MG; Start 05/25/18 at 09:00 Atenolol (Tenormin) 50 mg DAILY PO Last administered on 05/26/18 08:00; Admin Dose 50 MG; Start 05/25/18 at 09:00 Clopidogrel Bisulfate (plaVIX) 75 mg DAILY PO Last administered on 05/26/18 08:00; Admin Dose 75 MG; Start 05/25/18 at 09:00 Ergocalciferol (Drisdol) 50,000 unit Mo@0900 PO ; Start 05/29/18 at 09:00 Furosemide (Lasix) 40 mg DAILY PO Last administered on 05/26/18at 08:00; Admin Dose 40 MG; Start 05/25/18 at 09:00 Nateglinide (Starlix) 120 mg AC MEALS PO Last administered on 05/26/18 08:06; Admin Dose 120 MG; Start 05/25/18 at 07:00 Rivastigmine Tartrate (Exelon 4.6 Mg/ 24 Hr Patch) 1 patch DAILY TRANSDERM Last administered on 05/26/18at 08:00; Admin Dose 1 PATCH; Start 05/25/18 at 09:00 Fish Oil (Fish Oil) 1,000 mg Q12 PO Last administered on 05/26/18at 08:06; Admin Dose 1,000 MG; Start 05/25/18 at 10:00 Atorvastatin Calcium (Lipitor) 40 mg DAILY@21 PO ; Start 05/25/18 at 21:00 Diagnostic Test (Pha) (Accu-Chek) 1 ea 02 XX ; Start 05/25/18 at 02:00 Insulin Aspart (Novolog Insulin Pen) NOVOLOG *MILD* ALGORITHM WITH MEALS BEDTIME SC Last administered on 05/25/18at 08:48; Admin Dose 1 UNIT; Start 05/25/18 at 08:00 Acetaminophen (Tylenol Tab) 650 mg Q6H PRN PO MILD PAIN(1-3)OR ELEVATED TEMP Last administered on 05/25/18at 15:29; Admin Dose 650 MG; Start 05/25/18 at 01:00 Miscellaneous Information 1 ea NOTE XX ; Start 05/25/18 at 01:30 Glucose (Glutose) 15 gm Q15M PRN PO DECREASED GLUCOSE; Start 05/25/18 at 01:30 Glucose (Glutose) 22.5 gm Q15M PRN PO DECREASED GLUCOSE; Start 05/25/18 at 01:30 Dextrose (D50w Syringe) 25 ml Q15M PRN IV DECREASED GLUCOSE; Start 05/25/18 at 01:30 Dextrose (D50w Syringe) 50 ml Q15M PRN IV DECREASED GLUCOSE; Start 05/25/18 at 01:30 Glucagon (Glucagen) 1 mg Q15M PRN IM DECREASED GLUCOSE; Start 05/25/18 at 01:30 Glucose (Glutose) 15 gm Q15M PRN BUCCAL DECREASED GLUCOSE; Start 05/25/18 at 01:30 Epoetin Domingo (Epogen (Esrd)) 10,000 units MoWeFr@17 SC ; Start 05/26/18 at 17:00 Lisinopril (Zestril) 40 mg DAILY PO Last administered on 05/26/18at 08:07; Admin Dose 40 MG; Start 05/25/18 at 16:00 Hydralazine HCl (Apresoline) 25 mg Q8 PO ; Start 05/25/18 at 16:00; Status Hold Melatonin (Melatonin) 5 mg HS PRN PO insomnia; Start 05/25/18 at 16:00 Ondansetron HCl (Zofran Inj) 4 mg Q4H PRN IV NAUSEA AND/OR VOMITING Last administered on 05/26/18at 01:23; Admin Dose 4 MG; Start 05/25/18 at 21:00 Heparin Sodium (Porcine) (Heparin (1000 Units/ml)) 4,500 unit AFTER DIALYSIS CATHETER Last administered on 05/26/18at 04:05; Admin Dose 4,500 UNIT; Start 05/26/18 at 01:30 Lubiprostone (Amitiza) 24 mcg BID PO ; Start 05/26/18 at 13:00 SIMEON ANGELO MD May 26, 2018 13:50
--- NOTE | 2018-05-26 14:03 | CONS ---
DATE OF ADMISSION: 05/24/2018 DATE OF CONSULTATION: TYPE OF CONSULTATION: Gastroenterology. HISTORY OF PRESENT ILLNESS: The patient is a 77-year-old female with a history of diabetes mellitus, renal failure, atrial fibrillation, CVA, was admitted to the hospital for shortness of breath and ma lfunctioning of the dialysis catheter. GI consult was called in because she had some rectal bleeding . The patient is also constipated. Stool for occult blood was negative. No further information cou ld be obtained from the patient. All the information was gathered by discussion with the staff nurse . PAST MEDICAL HISTORY: As described. PAST SURGICAL HISTORY: PermCath. ALLERGIES: NONE. FAMILY HISTORY: Negative. SOCIAL HISTORY: Negative. REVIEW OF SYSTEMS: Negative. PHYSICAL EXAMINATION GENERAL: Well-built, nourished, not in distress. VITAL SIGNS: Stable. HEENT: Unremarkable. NECK: Supple. No thyromegaly, no lymphadenopathy. CARDIOVASCULAR: No murmur, gallop or click. LUNGS: Clear. ABDOMEN: Benign. EXTREMITIES: No edema. CENTRAL NERVOUS SYSTEM: Awake, alert, not in distress and moves all the extremities. LABORATORY DATA: Hematocrit is 31, which is stable. BUN 15, creatinine is 2.62. LFT within normal limits. INR within normal limits. MEDICATION LIST: Reviewed. IMPRESSION: 1. Rectal bleeding which is stable now. 2. Severe constipation. 3. Renal failure. 4. Mild anemia. 5. Hypertension. 6. Atrial fibrillation. 7. Diabetes mellitus. 8. Dementia. PLAN: At this point is to start the patient on a stool softener. If the family agrees, then we will proceed with colonoscopy. Before, the patient is placed on any kind of blood thinner for atrial fib rillation. Thank you again for the referral. Dictated By: LORETTA DELGADO/NTS Conf#: [id number] DID#: [id number] CC: STEVE REN DO; SILVIA RENTERIA DO;*EndCC*
[2018-05-26] MEDS: EPOETIN 10000 UNITS/1 ML INJ (ESRD) SC SCH (17:39)
[2018-05-26] MEDS ORDERED: FENTAnyl 50 MCG/ML VIAL ONE (18:49)
[2018-05-26] MEDS ORDERED: MIDAZOLAM 1 MG/ML 2 ML INJ ONE (18:52)
[2018-05-26] MEDS ORDERED: HEPARIN 1000 UNITS/ML 10 ML INJ ONE (18:53)
[2018-05-26] MEDS ORDERED: LIDOCAINE 1% (MDV) 20 ML INJ ONE (18:56)
--- NOTE | 2018-05-26 19:00 | OPR ---
Date/Time of Note Date/Time of Note DATE: 05/26/18 TIME: 18:58 Operative Report Procedure Date: May 26, 2018 Preoperative Diagnosis End-stage renal disease Postoperative Diagnosis Same Operation/Procedure Performed Right internal jugular vein 23 cm tunneled hemodialysis catheter placement Surgeon see signature line Coin Dealer None Anesthesia Type: MAC Estimated Blood Loss: minimal Transfusion none Specimen None Grafts/Implants none Complications none Disposition: PACU Procedure Description She was placed in supine position prepped and draped in usual sterile fashion timeout was called I started the previous catheter was in place guidewire was advanced through it without any difficulties although under fluoroscopic guidance this was a Glidewire with the soft tip the previous cuff of the c atheter was released from the surrounding tissues using Metzenbaum scissors after injecting 10 cc of 1% lidocaine The previous catheter was removed and the new Catheter which was a palindrome 23 cm was advanced over the wire under fluoroscopic guidance the tip was placed at the junction of the superior vena cava and right atrium both ports of the catheter were aspirated and injected using heparinized saline solution the catheter was secured to skin using 2-0 nylon sutures exit site was closed using a single 3-0 Vicryl suture in interrupted fashion patient tolerated procedure well end of dictation JOLANTA BEAUCHAMP MD May 26, 2018 19:00
[2018-05-26] MEDS: ATORVASTATIN 40 MG TAB PO SCH (22:06)
[2018-05-26] MEDS: MELATONIN 5 MG TABLET PO PRN (22:07)
[2018-05-27] VITALS (13 sets, daily range): BP systolic 112–125; BP diastolic 51–60; PULSE 38–69; RESP 17–20
[2018-05-27] MEDS: ACCU-CHEK XX SCH (02:00)
[2018-05-27] MEDS: INSULIN ASPART [NOVOLOG] 3 ML PEN SC SCH ×4 (08:00→21:00)
[2018-05-27] MEDS: FISH OIL 1,000 MG CAP PO SCH ×2 (08:55→21:22)
[2018-05-27] MEDS: CLOPIDOGREL 75 MG TAB PO SCH (08:55)
[2018-05-27] MEDS: LUBIPROSTONE 24 MCG CAP PO SCH ×2 (08:56→21:22)
[2018-05-27] MEDS: NATEGLINIDE 120 MG TAB PO SCH ×3 (08:56→18:47)
[2018-05-27] MEDS: RIVASTIGMINE 4.6MG/24H PATCH TRANSDERM SCH (08:56)
[2018-05-27] MEDS: ATENOLOL 50 MG TAB PO SCH ×2 (08:58→09:01)
[2018-05-27] MEDS: FUROSEMIDE 40 MG TAB PO SCH (08:58)
[2018-05-27] MEDS: LISINOPRIL 20 MG TAB PO SCH (08:59)
[2018-05-27] MEDS: AMLODIPINE 5 MG TAB PO SCH ×3 (08:59→21:00)
[2018-05-27] MEDS: ONDANSETRON 4 MG INJ IV PRN (12:47)
--- NOTE | 2018-05-27 14:22 | CONS ---
Assessment/Plan Assessment/Plan Assessment/Plan (Daily) IMPRESSION: 1. Rectal bleeding which is stable now. 2. Severe constipation. 3. Renal failure. 4. Mild anemia. 5. Hypertension. 6. Atrial fibrillation. 7. Diabetes mellitus. 8. Dementia. Plan Monitor for GI bleeding patient is on Plavix Continue Amitiza for constipation If family agrees will proceed with colonoscopy Consultation Date/Type/Reason Admit Date/Time May 26, 2018 at 15:55 Initial Consult Date Date/Time of Note DATE: 05/27/18 TIME: 14:21 24 HR Interval Summary Free Text/Dictation No further bleeding as per the staff Constitutional: improved Exam/Review of Systems Exam Vitals Vital Signs Date Temp Pulse Resp B/P (MAP) Pulse Ox O2 O2 Flow FiO2 Time Delivery Rate 05/27/18 59 13:04 05/27/18 98.3 18 113/57 94 11:21 (75) 05/26/18 Nasal 2.0 20:00 Cannula Intake and Output 05/26/18 05/26/18 05/27/18 1515:00 23:00 07:00 IntakeIntake Total 200 ml 300 ml OutputOutput Total 3 ml BalanceBalance 200 ml 297 ml Constitutional: alert, oriented, well developed Psych: no complaints, nl mood/affect Head: normocephalic, atraumatic Eyes: nl conjunctiva, EOMI, nl lids, nl sclera, PERRL ENMT: nl external ears & nose, nl lips & teeth, nl nasal mucosa & septum Neck: supple, non-tender Respiratory: clear to auscultation, normal air movement Cardiovascular: regular rate and rhythm, nl pulses Gastrointestinal: soft, nl liver, spleen, non-tender Musculoskeletal: nl extremities to inspection, nl gait and stance Extremities: normal pulses Neurological: FLAT CLOTHIER II-XII intact, nl mental status, nl speech, nl strength Skin: nl turgor; No rash or lesions Lymph: nl lymph nodes Results Result Diagram: 05/27/1852005/27/18520 Results 24hrs Laboratory Tests Test 05/26/18 17:29 05/26/18 21:55 05/27/18 05:21 05/27/18 07:50 Bedside Glucose 79 129 83 White Blood Count 7.3 # Red Blood Count 3.06 L Hemoglobin 8.3 L Hematocrit 27.7 L Mean Corpuscular 90.5 Volume Mean Corpuscular 27.1 L Hemoglobin Mean Corpuscular 30.0 L Hemoglobin Concent Red Cell 16.9 H Distribution Width Platelet Count 288 Mean Platelet Volume 9.7 Immature 0.300 Granulocytes % Neutrophils % 72.0 Lymphocytes % 18.4 Monocytes % 7.4 Eosinophils % 1.5 Basophils % 0.4 Nucleated Red Blood 0.0 Cells % Immature 0.020 Granulocytes # Neutrophils # 5.3 Lymphocytes # 1.4 Monocytes # 0.5 Eosinophils # 0.1 Basophils # 0.0 Nucleated Red Blood 0.0 Cells # Sodium Level 137 Potassium Level 4.1 Chloride Level 95 L Carbon Dioxide Level 32 H Anion Gap 10 Blood Urea Nitrogen 26 #H Creatinine 3.71 #H Est Glomerular Filtrat Rate mL/min Glucose Level 76 Calcium Level 10.0 Phosphorus Level 6.3 #H Magnesium Level 1.8 Test 05/27/18 12:53 Bedside Glucose 84 Medications Medication Current Medications Amlodipine Besylate (Norvasc) 5 mg BID PO Last administered on 05/26/18 08:00; Admin Dose 5 MG; Start 05/25/18 at 09:00 Atenolol (Tenormin) 50 mg DAILY PO Last administered on 05/26/18 08:00; Admin Dose 50 MG; Start 05/25/18 at 09:00 Clopidogrel Bisulfate (plaVIX) 75 mg DAILY PO Last administered on 05/27/18 08:55; Admin Dose 75 MG; Start 05/25/18 at 09:00 Ergocalciferol (Drisdol) 50,000 unit Mo@0900 PO ; Start 05/29/18 at 09:00 Furosemide (Lasix) 40 mg DAILY PO Last administered on 05/27/18 08:58; Admin Dose 40 MG; Start 05/25/18 at 09:00 Nateglinide (Starlix) 120 mg AC MEALS PO Last administered on 05/27/18 12:47; Admin Dose 120 MG; Start 05/25/18 at 07:00 Rivastigmine Tartrate (Exelon 4.6 Mg/ 24 Hr Patch) 1 patch DAILY TRANSDERM Last administered on 05/27/18 08:56; Admin Dose 1 PATCH; Start 05/25/18 at 09:00 Fish Oil (Fish Oil) 1,000 mg Q12 PO Last administered on 2/16/19at 08:55; Admin Dose 1,000 MG; Start 05/25/18 at 10:00 Atorvastatin Calcium (Lipitor) 40 mg DAILY@21 PO Last administered on 05/26/18 22:06; Admin Dose 40 MG; Start 05/25/18 at 21:00 Diagnostic Test (Pha) (Accu-Chek) 1 ea 02 XX ; Start 05/25/18 at 02:00 Insulin Aspart (Novolog Insulin Pen) NOVOLOG *MILD* ALGORITHM WITH MEALS BEDTIME SC Last administered on 05/25/18at 08:48; Admin Dose 1 UNIT; Start 05/25/18 at 08:00 Acetaminophen (Tylenol Tab) 650 mg Q6H PRN PO MILD PAIN(1-3)OR ELEVATED TEMP Last administered on 05/25/18at 15:29; Admin Dose 650 MG; Start 05/25/18 at 01:00 Miscellaneous Information 1 ea NOTE XX ; Start 05/25/18 at 01:30 Glucose (Glutose) 15 gm Q15M PRN PO DECREASED GLUCOSE; Start 05/25/18 at 01:30 Glucose (Glutose) 22.5 gm Q15M PRN PO DECREASED GLUCOSE; Start 05/25/18 at 01:30 Dextrose (D50w Syringe) 25 ml Q15M PRN IV DECREASED GLUCOSE; Start 05/25/18 at 01:30 Dextrose (D50w Syringe) 50 ml Q15M PRN IV DECREASED GLUCOSE; Start 05/25/18 at 01:30 Glucagon (Glucagen) 1 mg Q15M PRN IM DECREASED GLUCOSE; Start 05/25/18 at 01:30 Glucose (Glutose) 15 gm Q15M PRN BUCCAL DECREASED GLUCOSE; Start 05/25/18 at 01:30 Epoetin Domingo (Epogen (Esrd)) 10,000 units MoWeFr@17 SC Last administered on 05/26/18at 17:39; Admin Dose 10,000 UNITS; Start 05/26/18 at 17:00 Lisinopril (Zestril) 40 mg DAILY PO Last administered on 05/26/18at 08:07; Admin Dose 40 MG; Start 05/25/18 at 16:00 Melatonin (Melatonin) 5 mg HS PRN PO insomnia Last administered on 05/26/18at 22:07; Admin Dose 5 MG; Start 05/25/18 at 16:00 Ondansetron HCl (Zofran Inj) 4 mg Q4H PRN IV NAUSEA AND/OR VOMITING Last administered on 05/27/18at 12:47; Admin Dose 4 MG; Start 05/25/18 at 21:00 Heparin Sodium (Porcine) (Heparin (1000 Units/ml)) 4,500 unit AFTER DIALYSIS CATHETER Last administered on 05/26/18 04:05; Admin Dose 4,500 UNIT; Start 05/26/18 at 01:30 Lubiprostone (Amitiza) 24 mcg BID PO Last administered on 05/27/18at 08:56; Admin Dose 24 MCG; Start 05/26/18 at 13:00 LORTETA STEVENSON MD May 27, 2018 14:22
--- NOTE | 2018-05-27 15:35 | PN ---
DATE: 05/27/2018 SUBJECTIVE: The patient is stable. The patient had a Perm-A-Cath placed yesterday without any compl ications. The patient had no further episodes of bleeding noted. The patient was seen by [facility]log[facility] and recommend a colonoscopy. Please note I did discuss with the patient's son in detail about having a colonoscopy and the risks and benefits of anticoagulation. The patient's son did not want to have colonoscopy at this time and did not want to have full anticoagulation at this time. No othe r events noted. OBJECTIVE: VITAL SIGNS: Blood pressure 122/59, respirations 20, pulse is 63, temperature 98.2. HEENT: Head is normocephalic. NECK: Supple. HEART: Regular rate. LUNGS: Show diminished breath sounds at the base. ABDOMEN: Soft, nontender to palpation without rebound or guarding. EXTREMITIES: Negative for clubbing, cyanosis, no edema. DERMATOLOGIC: No rashes. MUSCULOSKELETAL: No joint effusion. NEUROLOGIC: No change in exam. MEDICATIONS: Reviewed. LABORATORY DATA: Has been reviewed, showed patient has sodium 137, potassium 4.1, BUN 26, creatinine 3.71 phosphorus 6.3. White count 7.3, hemoglobin 8.3, platelet count 288. ASSESSMENT AND PLAN: 1. Volume overload. Etiology secondary to end-stage renal disease. The patient is clinically impro ving. Continue ultrafiltration with dialysis. 2. Acute on chronic heart failure secondary to end-stage renal disease. The patient clinically impr oving. 3. Leukocytosis, SIRS etiology, likely reactive. The patient was seen by infectious diseasenathalie not on antibiotic therapy. We will monitor closely. We will follow up recommendations per ID. 4. End-stage renal disease. Plan is for hemodialysis today. The patient is status post Perm-A-Cath exchange yesterday. 5. Access. Patient is status post PermCath exchanged per vascular surgery. We will continue local access care. 6. Hypokalemia, improved. 7. Anemia. Continue to monitor hemoglobin and hematocrit levels. Continue Epogen. 8. Questionable hematochezia. The patient had 1 episode of bloody stool. Stool OB was negative. A ppreciate GI's evaluation. Recommend colonoscopy, currently being refused by patient's son. 9. Mineral bone disorder, monitor calcium and phosphorus levels. 10. Hypertension. Blood pressure controlled. Will adjust blood pressure medication. 11. Atrial fibrillation. Continue medical management. The patient's son was offered anticoagulatio n long-term, but he is currently unclear if he will pursue long-term anticoagulation, currently on Pl avix. We will continue to monitor. 12. Coronary artery disease. Continue medical management. 13. History of CVA. Continue current treatment plan. 14. Diabetes. Continue current insulin regimen. 15. Dyslipidemia. Continue statin therapy. 16. Acute encephalopathy and dementia, etiology toxic metabolic. The patient's mental status is imp roving. Continue Exelon patch. 17. Gastrointestinal and deep vein thrombosis prophylaxis. Dictated By: STEVE REN DO NR/NTS Conf#: [id number] DID#: [id number] CC: SILVIA RENTERIA DO;*EndCC*
[2018-05-27] MEDS ORDERED: ALTEPLASE (CATHFLO) 2 MG INJ CATHETER SCH (17:30)
--- NOTE | 2018-05-27 17:54 | CONS ---
Assessment/Plan Assessment/Plan Hospital Course (Demo Recall) ID PROGRESS NOTE CURRENT ABX: DAY # OFF ABX 24H INTERVAL SUMMARY * Alert awake, [place] speaking -- she is requesting assistance with her pillows and repositioning in bed = OBESE * HD RN noted erythema at PermCath insert site and changed the DSG today -- HD cath not patent order for alteplase inserted * 05/24/18 CXR: No significant change.Stable right double-lumen central venous catheter with tip in the SVC. Moderate cardiomegaly with extensive aortic calcifications.Mild pulmonary vascular ingestion.Stable mild to moderate bilateral pleural effusions with atelectasis/consolidations. Further findings as detailed above. MICRO * 05/25/18 (-)MRSA * 05/26/18 BCx (-) PHYSICAL EXAMINATION: GENERAL: Afebrile, VSS, obese, HEENT: AT, NC, anicteric NECK: Grossly normal CHEST: Equal chest rise bilaterally = without dyspnea * R-CHEST PermCath w/mild erythema at cath insert site HEART: Pulse RRR ABDOMEN: Soft / ND EXTREMITIES: Warm, SKIN: No rash, no diaphoresis ID ASSESSMENT 77 yo F admit with: 1. SIRS w/Transient leukocytosis on admission = reactive vs cellulitis at PermCath site w/erythema noted * 05/26/18 BCx (-) 2. Malfunctioning HD catheter - The catheter was recently replaced 2 weeks ago. * - HD cath not patent order for alteplase inserted tonight 3. 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 Diabetes mellitus w/poly-neuropathies 5. Hypertension 6. Dyslipidemia. 7. Hx of Cerebrovascular accident. 8. Hx of Coronary artery disease w/prior PCI-Stent 9. Hx of CHF * 05/24/18 CXR: Stable mild to moderate bilateral pleural effusions with atelectasis/consolidations. 9. Dementia. 10. Chronic encephalopathy. (-)MRSA Nares Screen ABX ALLERGIES: KNDA INVASIVES: PIV CURRENT ABX: DAY # =>OFF ABX ID RECOMMENDATIONS/PLAN: 1. R-CHEST PermCath w/mild erythema at cath insert site -- will Rx Vanco IV + Ceftriaxone .2. HD pending tonight vs tomorrow if alteplase is effective . Consultation Date/Type/Reason Admit Date/Time May 26, 2018 at 15:55 Initial Consult Date Date/Time of Note DATE: 05/27/18 TIME: 17:54 Exam/Review of Systems Exam Vitals Vital Signs Date Temp Pulse Resp B/P (MAP) Pulse Ox O2 O2 Flow FiO2 Time Delivery Rate 05/27/18 61 16:06 05/27/18 98.4 18 121/60 94 15:44 (80) 05/26/18 Nasal 2.0 20:00 Cannula Intake and Output 05/26/18 05/26/18 05/27/18 1414:59 22:59 06:59 IntakeIntake Total 200 ml 300 ml OutputOutput Total 3 ml BalanceBalance 200 ml 297 ml Results Result Diagram: 05/27/18 0505/27/18 05 Results 24hrs Laboratory Tests Test 05/26/18 21:55 05/27/18 05:21 05/27/18 07:50 05/27/18 12:53 Bedside Glucose 129 83 84 White Blood Count 7.3 # Red Blood Count 3.06 L Hemoglobin 8.3 L Hematocrit 27.7 L Mean Corpuscular 90.5 Volume Mean Corpuscular 27.1 L Hemoglobin Mean Corpuscular 30.0 L Hemoglobin Concent Red Cell 16.9 H Distribution Width Platelet Count 288 Mean Platelet Volume 9.7 Immature 0.300 Granulocytes % Neutrophils % 72.0 Lymphocytes % 18.4 Monocytes % 7.4 Eosinophils % 1.5 Basophils % 0.4 Nucleated Red Blood 0.0 Cells % Immature 0.020 Granulocytes # Neutrophils # 5.3 Lymphocytes # 1.4 Monocytes # 0.5 Eosinophils # 0.1 Basophils # 0.0 Nucleated Red Blood 0.0 Cells # Sodium Level 137 Potassium Level 4.1 Chloride Level 95 L Carbon Dioxide Level 32 H Anion Gap 10 Blood Urea Nitrogen 26 #H Creatinine 3.71 #H Est Glomerular Filtrat Rate mL/min Glucose Level 76 Calcium Level 10.0 Phosphorus Level 6.3 #H Magnesium Level 1.8 Test 05/27/18 17:38 Bedside Glucose 109 Medications Medication Current Medications Amlodipine Besylate (Norvasc) 5 mg BID PO Last administered on 05/26/18at 08:00; Admin Dose 5 MG; Start 05/25/18 at 09:00 Atenolol (Tenormin) 50 mg DAILY PO Last administered on 05/26/18at 08:00; Admin Dose 50 MG; Start 05/25/18 at 09:00 Clopidogrel Bisulfate (plaVIX) 75 mg DAILY PO Last administered on 05/27/18 08:55; Admin Dose 75 MG; Start 05/25/18 at 09:00 Ergocalciferol (Drisdol) 50,000 unit Mo@0900 PO ; Start 05/29/18 at 09:00 Furosemide (Lasix) 40 mg DAILY PO Last administered on 05/27/18 08:58; Admin Dose 40 MG; Start 05/25/18 at 09:00 Nateglinide (Starlix) 120 mg AC MEALS PO Last administered on 05/27/18 12:47; Admin Dose 120 MG; Start 05/25/18 at 07:00 Rivastigmine Tartrate (Exelon 4.6 Mg/ 24 Hr Patch) 1 patch DAILY TRANSDERM Last administered on 05/27/18 08:56; Admin Dose 1 PATCH; Start 05/25/18 at 09:00 Fish Oil (Fish Oil) 1,000 mg Q12 PO Last administered on 05/27/18 08:55; Admin Dose 1,000 MG; Start 05/25/18 at 10:00 Atorvastatin Calcium (Lipitor) 40 mg DAILY@21 PO Last administered on 05/26/18 22:06; Admin Dose 40 MG; Start 05/25/18 at 21:00 Diagnostic Test (Pha) (Accu-Chek) 1 ea 02 XX ; Start 05/25/18 at 02:00 Insulin Aspart (Novolog Insulin Pen) NOVOLOG *MILD* ALGORITHM WITH MEALS BEDTIME SC Last administered on 05/25/18 08:48; Admin Dose 1 UNIT; Start 05/25/18 at 08:00 Acetaminophen (Tylenol Tab) 650 mg Q6H PRN PO MILD PAIN(1-3)OR ELEVATED TEMP Last administered on 05/25/18at 15:29; Admin Dose 650 MG; Start 05/25/18 at 01:00 Miscellaneous Information 1 ea NOTE XX ; Start 05/25/18 at 01:30 Glucose (Glutose) 15 gm Q15M PRN PO DECREASED GLUCOSE; Start 05/25/18 at 01:30 Glucose (Glutose) 22.5 gm Q15M PRN PO DECREASED GLUCOSE; Start 05/25/18 at 01:30 Dextrose (D50w Syringe) 25 ml Q15M PRN IV DECREASED GLUCOSE; Start 05/25/18 at 01:30 Dextrose (D50w Syringe) 50 ml Q15M PRN IV DECREASED GLUCOSE; Start 05/25/18 at 01:30 Glucagon (Glucagen) 1 mg Q15M PRN IM DECREASED GLUCOSE; Start 05/25/18 at 01:30 Glucose (Glutose) 15 gm Q15M PRN BUCCAL DECREASED GLUCOSE; Start 05/25/18 at 01:30 Epoetin Domingo (Epogen (Esrd)) 10,000 units MoWeFr@17 SC Last administered on 05/26/18at 17:39; Admin Dose 10,000 UNITS; Start 05/26/18 at 17:00 Lisinopril (Zestril) 40 mg DAILY PO Last administered on 05/26/18at 08:07; Admin Dose 40 MG; Start 05/25/18 at 16:00 Melatonin (Melatonin) 5 mg HS PRN PO insomnia Last administered on 05/26/18at 22:07; Admin Dose 5 MG; Start 05/25/18 at 16:00 Ondansetron HCl (Zofran Inj) 4 mg Q4H PRN IV NAUSEA AND/OR VOMITING Last administered on 05/27/18at 12:47; Admin Dose 4 MG; Start 05/25/18 at 21:00 Heparin Sodium (Porcine) (Heparin (1000 Units/ml)) 4,500 unit AFTER DIALYSIS CATHETER Last administered on 05/26/18at 04:05; Admin Dose 4,500 UNIT; Start 05/26/18 at 01:30 Lubiprostone (Amitiza) 24 mcg BID PO Last administered on 05/27/18at 08:56; Admin Dose 24 MCG; Start 05/26/18 at 13:00 Alteplase, Recombinant (Cathflo (Activase)) 3.8 mg ONCE CATHETER ; Start 9 at 17:30; Stop 05/27/18 at 19:00 FELIPE SCALES NP May 27, 2018 17:54
[2018-05-27] MEDS ORDERED: VANCOMYCIN IV PER PHARMACY XX SCH (20:30)
[2018-05-27] MEDS: ATORVASTATIN 40 MG TAB PO SCH (21:22)
[2018-05-27] MEDS: CEFTRIAXONE 2 GM/50 ML (PMX) 50 ML IVPB SCH (22:07)
[2018-05-27] MEDS: MELATONIN 5 MG TABLET PO PRN (22:19)
[2018-05-27] MEDS ORDERED: VANCOMYCIN HCL 1.5 GM in SOD CHLORIDE 0.9% 250 ML IVPB SCH (23:00)
[2018-05-27] MEDS ORDERED: VITAMIN A & D 5 GM OINT PACKET TOP ONE (23:12)
[2018-05-28] VITALS (12 sets, daily range): BP systolic 113–135; BP diastolic 56–68; PULSE 57–80; RESP 18–20
[2018-05-28] MEDS: ACCU-CHEK XX SCH (02:00)
[2018-05-28] MEDS: NATEGLINIDE 120 MG TAB PO SCH ×3 (07:49→17:22)
[2018-05-28] MEDS: INSULIN ASPART [NOVOLOG] 3 ML PEN SC SCH ×4 (07:49→21:00)
[2018-05-28] MEDS: LISINOPRIL 20 MG TAB PO SCH (08:14)
[2018-05-28] MEDS: AMLODIPINE 5 MG TAB PO SCH ×2 (08:14→21:00)
[2018-05-28] MEDS: LUBIPROSTONE 24 MCG CAP PO SCH ×2 (08:14→21:25)
[2018-05-28] MEDS: FISH OIL 1,000 MG CAP PO SCH ×2 (08:14→21:25)
[2018-05-28] MEDS: CLOPIDOGREL 75 MG TAB PO SCH (08:14)
[2018-05-28] MEDS: RIVASTIGMINE 4.6MG/24H PATCH TRANSDERM SCH (08:15)
[2018-05-28] MEDS: FUROSEMIDE 40 MG TAB PO SCH (08:15)
--- NOTE | 2018-05-28 11:30 | PN ---
DATE: 05/28/2018 SUBJECTIVE: I spoke yesterday with the hand printed circuit board assembler regarding possibility of anticoagulation in the setting of possible gastrointestinal bleed. Recommendation was made to defer full anticoagulation. Additionally, the patient's son as previously stated did not wish to pursue full anticoagulation at t his time. The patient yesterday attempted to have hemodialysis. Unfortunately, the dialysis catheter still was not appropriately working. We will attempt again dialysis this morning. OBJECTIVE: VITAL SIGNS: Blood pressure is 113/56, respiration 18, pulse 67, temperature 98.3. HEENT: Head is normocephalic. NECK: Supple. HEART: Regular rate. LUNGS/CHEST: Show diminished breath sounds at the base. The patient's perm-a-cath has some mild eryt yonny at the catheter site. ABDOMEN: Soft, nontender to palpation. No rebound or guarding. EXTREMITIES: Negative for clubbing, cyanosis, no edema. DERMATOLOGIC: No rashes. MUSCULOSKELETAL: No joint effusions. NEUROLOGIC: No change in exam. MEDICATIONS: Reviewed. LABORATORY DATA: From 05/27/2018 was reviewed. ASSESSMENT AND PLAN: 1. Volume overload, improved. Etiology secondary to end-stage renal disease. The patient is status post ultrafiltration dialysis. Will continue to maintain euvolemic status. 2. Acute on chronic heart failure secondary to end-stage renal disease. The patient is clinically i mproved. 3. Leukocytosis, etiology may be secondary to cellulitis at Perm-A-Cath site. The patient is on IV antibiotics. Will continue. Appreciate ID's evaluation. 4. End-stage renal disease. Will attempt hemodialysis today. 5. Access. The patient is status post Perm-A-Cath exchange; however, Perm-A-Cath was noted to not b e functioning well. Will reattempt dialysis today. We will also follow up with vascular surgery for recommendations. 6. Anemia. Continue to monitor hemoglobin and hematocrit levels. Continue Epogen. 7. Possible GI bleed. The patient has been seen by GI, with the recommendation colonoscopy. The rhys grant's family is deferring at this time. Will continue to monitor. 8. Mineral bone disorder, monitor calcium and phosphorus levels. 9. Hypertension. Blood pressure improved. Medications have been adjusted. 10. Atrial fibrillation. The patient's son was offered anticoagulation long-term, risks and benefit s were explained including the possibility of bleeding. The patient's son at this point does not wis h to have full anticoagulation. Will follow up with cardiology recommendations. 11. Coronary artery disease. Continue current treatment plan. 12. History of cerebrovascular accident. Continue medical management. 13. Diabetes. Glucose levels have been stable. 14. Dyslipidemia. Continue statin therapy. 15. Acute encephalopathy and dementia, etiology toxic metabolic. The patient's mental status improv ing. Continue Exelon patch. 16. Gastrointestinal and deep vein thrombosis prophylaxis. Dictated By: STEVE REN DO NR/NTS Conf#: [id number] DID#: [id number] CC: SILVIA RENTERIA DO;*EndCC*
--- NOTE | 2018-05-28 15:05 | CONS ---
Assessment/Plan Assessment/Plan Hospital Course (Demo Recall) ID PROGRESS NOTE CURRENT ABX: DAY # Vanco IV #2+ Ceftriaxone #2 24H INTERVAL SUMMARY * Lethargic today, VSS, no fevers -- she was started on ABX yesterday for concern local eythema/cellulitis at the new (exchanged 2 weeks ago) PermCath site. * HD Vascular Access is non-functional today despite treatment w/alteplase yesterday. Plan is for replacement. * 05/24/18 CXR: No significant change.Stable right double-lumen central venous catheter with tip in the SVC. Moderate cardiomegaly with extensive aortic calcifications.Mild pulmonary vascular ingestion.Stable mild to moderate bilateral pleural effusions with atelectasis/consolidations. Further findings as detailed above. MICRO * 05/25/18 (-)MRSA * 05/26/18 BCx (-) PHYSICAL EXAMINATION: GENERAL: Afebrile, VSS, obese, HEENT: AT, NC, anicteric NECK: Grossly normal CHEST: Equal chest rise bilaterally = without dyspnea * R-CHEST PermCath w/mild erythema at cath insert site HEART: Pulse RRR ABDOMEN: Soft / ND EXTREMITIES: Warm, SKIN: No rash, no diaphoresis ID ASSESSMENT 77 yo F admit with: 1. SIRS w/Transient leukocytosis on admission = reactive vs cellulitis at PermCath site w/erythema noted * 05/26/18 BCx (-) 2. Malfunctioning HD catheter - The catheter was recently replaced 2 weeks ago. * - HD cath not patent order for alteplase inserted tonight 3. 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 Diabetes mellitus w/poly-neuropathies 5. Hypertension 6. Dyslipidemia. 7. Hx of Cerebrovascular accident. 8. Hx of Coronary artery disease w/prior PCI-Stent 9. Hx of CHF * 05/24/18 CXR: Stable mild to moderate bilateral pleural effusions with atelectasis/consolidations. 9. Dementia. 10. Chronic encephalopathy. (-)MRSA Nares Screen ABX ALLERGIES: KNDA INVASIVES: PIV CURRENT ABX: DAY # =>Vanco IV #2+ Ceftriaxone #2 ID RECOMMENDATIONS/PLAN: 1. R-CHEST PermCath w/mild erythema at cath insert site concerning for local cellulitis -- Rx Vanco IV + Ceftriaxone initiated yesterday. .2. HD Vascular Access is non-functional today despite treatment w/alteplase yesterday. Plan is for replacement. . Consultation Date/Type/Reason Admit Date/Time May 26, 2018 at 15:55 Initial Consult Date Date/Time of Note DATE: 05/28/18 TIME: 14:58 Exam/Review of Systems Exam Vitals Vital Signs Date Temp Pulse Resp B/P (MAP) Pulse Ox O2 O2 Flow FiO2 Time Delivery Rate 05/28/18 61 12:05 05/28/18 98.1 20 135/68 92 11:22 (90) 05/28/18 Nasal 2.0 08:25 Cannula Intake and Output 05/27/18 05/27/18 05/28/18 1515:00 23:00 07:00 IntakeIntake Total 350 ml 650 ml OutputOutput Total 1 ml BalanceBalance 349 ml 650 ml Results Result Diagram: 05/27/1852005/27/18 0521 Results 24hrs Laboratory Tests Test 05/27/18 17:38 05/27/18 21:25 05/28/18 07:46 05/28/18 12:10 Bedside Glucose 109 86 78 127 Medications Medication Current Medications Amlodipine Besylate (Norvasc) 5 mg BID PO Last administered on 05/28/18at 08:14; Admin Dose 5 MG; Start 05/25/18 at 09:00 Atenolol (Tenormin) 50 mg DAILY PO Last administered on 05/26/18at 08:00; Admin Dose 50 MG; Start 05/25/18 at 09:00 Clopidogrel Bisulfate (plaVIX) 75 mg DAILY PO Last administered on 05/28/18at 08:14; Admin Dose 75 MG; Start 05/25/18 at 09:00 Ergocalciferol (Drisdol) 50,000 unit Mo@0900 PO ; Start 05/29/18 at 09:00 Furosemide (Lasix) 40 mg DAILY PO Last administered on 05/28/18at 08:15; Admin Dose 40 MG; Start 05/25/18 at 09:00 Nateglinide (Starlix) 120 mg AC MEALS PO Last administered on 05/28/18at 12:12; Admin Dose 120 MG; Start 05/25/18 at 07:00 Rivastigmine Tartrate (Exelon 4.6 Mg/ 24 Hr Patch) 1 patch DAILY TRANSDERM Last administered on 05/28/18at 08:15; Admin Dose 1 PATCH; Start 05/25/18 at 09:00 Fish Oil (Fish Oil) 1,000 mg Q12 PO Last administered on 05/28/18at 08:14; Admin Dose 1,000 MG; Start 05/25/18 at 10:00 Atorvastatin Calcium (Lipitor) 40 mg DAILY@21 PO Last administered on 05/27/18at 21:22; Admin Dose 40 MG; Start 05/25/18 at 21:00 Diagnostic Test (Pha) (Accu-Chek) 1 ea 02 XX ; Start 05/25/18 at 02:00 Insulin Aspart (Novolog Insulin Pen) NOVOLOG *MILD* ALGORITHM WITH MEALS BEDTIME SC Last administered on 05/25/18at 08:48; Admin Dose 1 UNIT; Start 05/25/18 at 08:00 Acetaminophen (Tylenol Tab) 650 mg Q6H PRN PO MILD PAIN(1-3)OR ELEVATED TEMP Last administered on 05/25/18at 15:29; Admin Dose 650 MG; Start 05/25/18 at 01:00 Miscellaneous Information 1 ea NOTE XX ; Start 05/25/18 at 01:30 Glucose (Glutose) 15 gm Q15M PRN PO DECREASED GLUCOSE; Start 05/25/18 at 01:30 Glucose (Glutose) 22.5 gm Q15M PRN PO DECREASED GLUCOSE; Start 05/25/18 at 01:30 Dextrose (D50w Syringe) 25 ml Q15M PRN IV DECREASED GLUCOSE; Start 05/25/18 at 01:30 Dextrose (D50w Syringe) 50 ml Q15M PRN IV DECREASED GLUCOSE; Start 05/25/18 at 01:30 Glucagon (Glucagen) 1 mg Q15M PRN IM DECREASED GLUCOSE; Start 05/25/18 at 01:30 Glucose (Glutose) 15 gm Q15M PRN BUCCAL DECREASED GLUCOSE; Start 05/25/18 at 01:30 Epoetin Domingo (Epogen (Esrd)) 10,000 units MoWeFr@17 SC Last administered on 05/26/18at 17:39; Admin Dose 10,000 UNITS; Start 05/26/18 at 17:00 Lisinopril (Zestril) 40 mg DAILY PO Last administered on 05/28/18at 08:14; Admin Dose 40 MG; Start 05/25/18 at 16:00 Melatonin (Melatonin) 5 mg HS PRN PO insomnia Last administered on 05/27/18 22:19; Admin Dose 5 MG; Start 05/25/18 at 16:00 Ondansetron HCl (Zofran Inj) 4 mg Q4H PRN IV NAUSEA AND/OR VOMITING Last administered on 05/27/18 12:47; Admin Dose 4 MG; Start 05/25/18 at 21:00 Heparin Sodium (Porcine) (Heparin (1000 Units/ml)) 4,500 unit AFTER DIALYSIS CATHETER Last administered on 05/26/18 04:05; Admin Dose 4,500 UNIT; Start 05/26/18 at 01:30 Lubiprostone (Amitiza) 24 mcg BID PO Last administered on 05/28/18 08:14; Admin Dose 24 MCG; Start 05/26/18 at 13:00 Ceftriaxone Sodium 50 ml @ 100 mls/hr Q24H IVPB Last administered on 05/27/18 22:07; Admin Dose 100 MLS/HR; Start 05/27/18 at 22:00 Vancomycin HCl (Vanco Iv Per Pharmacy) VANCOMYCIN PER PHARMACY PER PROTOCOL XX ; Start 05/27/18 at 20:30 FELIPE SCALES NP May 28, 2018 15:05
--- NOTE | 2018-05-28 18:42 | CONS ---
Assessment/Plan Assessment/Plan Assessment/Plan (Daily) Assessment/Plan (Daily) IMPRESSION: 1. Rectal bleeding which is stable now. 2. Severe constipation. 3. Renal failure. 4. Mild anemia. 5. Hypertension. 6. Atrial fibrillation. 7. Diabetes mellitus. 8. Dementia. Plan Monitor for GI bleeding patient is on Plavix Continue Amitiza for constipation If family agrees will proceed with colonoscopy Consultation Date/Type/Reason Admit Date/Time May 26, 2018 at 15:55 Initial Consult Date Date/Time of Note DATE: 05/28/18 TIME: 18:42 24 HR Interval Summary Free Text/Dictation Discussed with the staff no bleeding and had a good bowel movement Constitutional: no complaints, improved Exam/Review of Systems Exam Vitals Vital Signs Date Temp Pulse Resp B/P (MAP) Pulse Ox O2 O2 Flow FiO2 Time Delivery Rate 05/28/18 62 16:05 05/28/18 98.4 18 122/58 100 15:26 (79) 05/28/18 Nasal 2.0 08:25 Cannula Intake and Output 05/27/18 05/27/18 05/28/18 1515:00 23:00 07:00 IntakeIntake Total 350 ml 650 ml OutputOutput Total 1 ml BalanceBalance 349 ml 650 ml Constitutional: alert, oriented, well developed Psych: no complaints, nl mood/affect Head: normocephalic, atraumatic Eyes: nl conjunctiva, EOMI, nl lids, nl sclera, PERRL ENMT: nl external ears & nose, nl lips & teeth, nl nasal mucosa & septum Neck: supple, non-tender Respiratory: clear to auscultation, normal air movement Cardiovascular: regular rate and rhythm, nl pulses Gastrointestinal: soft, nl liver, spleen, non-tender Musculoskeletal: nl extremities to inspection, nl gait and stance Extremities: normal pulses Neurological: X RAY SERVICE ENGINEER II-XII intact, nl mental status, nl speech, nl strength Skin: nl turgor; No rash or lesions Lymph: nl lymph nodes Results Result Diagram: 05/27/18 0521 05/28/18 1739 Results 24hrs Laboratory Tests Test 05/27/18 21:25 05/28/18 07:46 05/28/18 12:10 05/28/18 17:21 Bedside Glucose 86 78 127 102 Test 05/28/18 17:39 Sodium Level 136 Potassium Level 3.8 Chloride Level 99 Carbon Dioxide Level 29 Anion Gap 8 Blood Urea Nitrogen 32 H Creatinine 4.55 H Est Glomerular Filtrat Rate mL/min Glucose Level 100 Calcium Level 10.2 Medications Medication Current Medications Amlodipine Besylate (Norvasc) 5 mg BID PO Last administered on 05/28/18 08:14; Admin Dose 5 MG; Start 05/25/18 at 09:00 Atenolol (Tenormin) 50 mg DAILY PO Last administered on 05/26/18 08:00; Admin Dose 50 MG; Start 05/25/18 at 09:00 Clopidogrel Bisulfate (plaVIX) 75 mg DAILY PO Last administered on 05/28/18 08:14; Admin Dose 75 MG; Start 05/25/18 at 09:00 Ergocalciferol (Drisdol) 50,000 unit Mo@0900 PO ; Start 05/29/18 at 09:00 Furosemide (Lasix) 40 mg DAILY PO Last administered on 05/28/18 08:15; Admin Dose 40 MG; Start 05/25/18 at 09:00 Nateglinide (Starlix) 120 mg AC MEALS PO Last administered on 05/28/18 17:22; Admin Dose 120 MG; Start 05/25/18 at 07:00 Rivastigmine Tartrate (Exelon 4.6 Mg/ 24 Hr Patch) 1 patch DAILY TRANSDERM Last administered on 05/28/18 08:15; Admin Dose 1 PATCH; Start 05/25/18 at 09:00 Fish Oil (Fish Oil) 1,000 mg Q12 PO Last administered on 05/28/18 08:14; Admin Dose 1,000 MG; Start 05/25/18 at 10:00 Atorvastatin Calcium (Lipitor) 40 mg DAILY@21 PO Last administered on 05/27/18 21:22; Admin Dose 40 MG; Start 05/25/18 at 21:00 Diagnostic Test (Pha) (Accu-Chek) 1 ea 02 XX ; Start 05/25/18 at 02:00 Insulin Aspart (Novolog Insulin Pen) NOVOLOG *MILD* ALGORITHM WITH MEALS BEDTI ME SC Last administered on 05/25/18at 08:48; Admin Dose 1 UNIT; Start 05/25/18 at 08:00 Acetaminophen (Tylenol Tab) 650 mg Q6H PRN PO MILD PAIN(1-3)OR ELEVATED TEMP Last administered on 05/25/18at 15:29; Admin Dose 650 MG; Start 05/25/18 at 01:00 Miscellaneous Information 1 ea NOTE XX ; Start 05/25/18 at 01:30 Glucose (Glutose) 15 gm Q15M PRN PO DECREASED GLUCOSE; Start 05/25/18 at 01:30 Glucose (Glutose) 22.5 gm Q15M PRN PO DECREASED GLUCOSE; Start 05/25/18 at 01:30 Dextrose (D50w Syringe) 25 ml Q15M PRN IV DECREASED GLUCOSE; Start 05/25/18 at 01:30 Dextrose (D50w Syringe) 50 ml Q15M PRN IV DECREASED GLUCOSE; Start 05/25/18 at 01:30 Glucagon (Glucagen) 1 mg Q15M PRN IM DECREASED GLUCOSE; Start 05/25/18 at 01:30 Glucose (Glutose) 15 gm Q15M PRN BUCCAL DECREASED GLUCOSE; Start 05/25/18 at 01:30 Epoetin Domingo (Epogen (Esrd)) 10,000 units MoWeFr@17 SC Last administered on 05/26/18at 17:39; Admin Dose 10,000 UNITS; Start 05/26/18 at 17:00 Lisinopril (Zestril) 40 mg DAILY PO Last administered on 05/28/18at 08:14; Admin Dose 40 MG; Start 05/25/18 at 16:00 Melatonin (Melatonin) 5 mg HS PRN PO insomnia Last administered on 05/27/18at 22:19; Admin Dose 5 MG; Start 05/25/18 at 16:00 Ondansetron HCl (Zofran Inj) 4 mg Q4H PRN IV NAUSEA AND/OR VOMITING Last administered on 05/27/18at 12:47; Admin Dose 4 MG; Start 05/25/18 at 21:00 Heparin Sodium (Porcine) (Heparin (1000 Units/ml)) 4,500 unit AFTER DIALYSIS CATHETER Last administered on 05/26/18at 04:05; Admin Dose 4,500 UNIT; Start 05/26/18 at 01:30 Lubiprostone (Amitiza) 24 mcg BID PO Last administered on 05/28/18at 08:14; Admin Dose 24 MCG; Start 05/26/18 at 13:00 Ceftriaxone Sodium 50 ml @ 100 mls/hr Q24H IVPB Last administered on 05/27/18at 22:07; Admin Dose 100 MLS/HR; Start 05/27/18 at 22:00 Vancomycin HCl (Vanco Iv Per Pharmacy) VANCOMYCIN PER PHARMACY PER PROTOCOL XX ; Start 05/27/18 at 20:30 LORETTA STEVENSON MD May 28, 2018 18:42
[2018-05-28] MEDS: ATORVASTATIN 40 MG TAB PO SCH (21:25)
[2018-05-28] MEDS: CEFTRIAXONE 2 GM/50 ML (PMX) 50 ML IVPB SCH (21:41)
[2018-05-29] VITALS (15 sets, daily range): BP systolic 118–153; BP diastolic 46–71; PULSE 38–73; RESP 18–19
[2018-05-29] MEDS: ACCU-CHEK XX SCH (02:00)
[2018-05-29] MEDS: NATEGLINIDE 120 MG TAB PO SCH ×3 (07:28→17:30)
[2018-05-29] MEDS: INSULIN ASPART [NOVOLOG] 3 ML PEN SC SCH ×4 (07:28→21:00)
--- NOTE | 2018-05-29 08:22 | CONS ---
Assessment/Plan Assessment/Plan Hospital Course (Demo Recall) 77 yo female 1. Rectal bleeding which is stable now. -Pt FOB negative. Iron panel wnl. 2. Severe constipation. -resolved 3. Renal failure. 4. Mild anemia. -stable 5. Hypertension. 6. Atrial fibrillation. Pt is on plavix 7. Diabetes mellitus. 8. Dementia. PLAN: Spoke with son, Mehdi who has agreed to colonoscopy but Pt was started on plavix 05/25 for a fib. Pt will need to stop Plavix and wait 5-7 days for colonoscopy. Permacath placement scheduled for today Continue on bowel regimen. Pt examined and plan of care discussed with Dr. Monsivais Consultation Date/Type/Reason Admit Date/Time May 26, 2018 at 15:55 Initial Consult Date Date/Time of Note DATE: 05/29/18 TIME: 08:15 24 HR Interval Summary Free Text/Dictation mx bm overnight. No evidence of GI bleeding. Exam/Review of Systems Exam Vitals Vital Signs Date Temp Pulse Resp B/P (MAP) Pulse Ox O2 O2 Flow FiO2 Time Delivery Rate 05/29/18 98.3 70 18 148/66 93 07:04 (93) 05/28/18 Nasal 2.0 08:25 Cannula Intake and Output 05/28/18 05/28/18 05/29/18 1515:00 23:00 07:00 IntakeIntake Total 450 ml 300 ml BalanceBalance 450 ml 300 ml Constitutional: alert, oriented Gastrointestinal: soft, non-tender Neurological: nl mental status Results Result Diagram: 05/29/18 0508 05/29/18 0508 Results 24hrs Laboratory Tests Test 05/28/18 12:10 05/28/18 17:21 05/28/18 17:39 05/28/18 21:22 Bedside Glucose 127 102 126 Sodium Level 136 Potassium Level 3.8 Chloride Level 99 Carbon Dioxide Level 29 Anion Gap 8 Blood Urea Nitrogen 32 H Creatinine 4.55 H Est Glomerular Filtrat Rate mL/min Glucose Level 100 Calcium Level 10.2 Test 05/29/18 05:08 05/29/18 07:27 White Blood Count 8.0 Red Blood Count 3.46 L Hemoglobin 9.2 L Hematocrit 30.6 L Mean Corpuscular 88.4 Volume Mean Corpuscular 26.6 L Hemoglobin Mean Corpuscular 30.1 L Hemoglobin Concent Red Cell 16.7 H Distribution Width Platelet Count 315 Mean Platelet Volume 9.6 Immature 0.500 H Granulocytes % Neutrophils % 76.0 Lymphocytes % 12.8 L Monocytes % 7.5 Eosinophils % 2.6 Basophils % 0.6 Nucleated Red Blood 0.0 Cells % Immature 0.040 H Granulocytes # Neutrophils # 6.1 Lymphocytes # 1.0 Monocytes # 0.6 Eosinophils # 0.2 Basophils # 0.1 Nucleated Red Blood 0.0 Cells # Sodium Level 139 Potassium Level 3.8 Chloride Level 96 L Carbon Dioxide Level 28 Anion Gap 15 #H Blood Urea Nitrogen 33 H Creatinine 4.97 H Est Glomerular Filtrat Rate mL/min Glucose Level 118 Calcium Level 10.3 H Phosphorus Level 6.3 H Magnesium Level 1.6 L Random Vancomycin 16.5 Level Bedside Glucose 115 Medications Medication Current Medications Amlodipine Besylate (Norvasc) 5 mg BID PO Last administered on 05/28/18 08:14; Admin Dose 5 MG; Start 05/25/18 at 09:00 Atenolol (Tenormin) 50 mg DAILY PO Last administered on 05/26/18 08:00; Admin Dose 50 MG; Start 05/25/18 at 09:00 Clopidogrel Bisulfate (plaVIX) 75 mg DAILY PO Last administered on 05/28/18 08:14; Admin Dose 75 MG; Start 05/25/18 at 09:00 Ergocalciferol (Drisdol) 50,000 unit Mo@0900 PO ; Start 05/29/18 at 09:00 Furosemide (Lasix) 40 mg DAILY PO Last administered on 05/28/18 08:15; Admin Dose 40 MG; Start 05/25/18 at 09:00 Nateglinide (Starlix) 120 mg AC MEALS PO Last administered on 05/29/18 07:28; Admin Dose 120 MG; Start 05/25/18 at 07:00 Rivastigmine Tartrate (Exelon 4.6 Mg/ 24 Hr Patch) 1 patch DAILY TRANSDERM Last administered on 05/28/18 08:15; Admin Dose 1 PATCH; Start 05/25/18 at 09:00 Fish Oil (Fish Oil) 1,000 mg Q12 PO Last administered on 05/28/18 21:25; Admin Dose 1,000 MG; Start 05/25/18 at 10:00 Atorvastatin Calcium (Lipitor) 40 mg DAILY@21 PO Last administered on 05/28/18at 21:25; Admin Dose 40 MG; Start 05/25/18 at 21:00 Diagnostic Test (Pha) (Accu-Chek) 1 ea 02 XX ; Start 05/25/18 at 02:00 Insulin Aspart (Novolog Insulin Pen) NOVOLOG *MILD* ALGORITHM WITH MEALS BEDTIME SC Last administered on 05/25/18at 08:48; Admin Dose 1 UNIT; Start 05/25/18 at 08:00 Acetaminophen (Tylenol Tab) 650 mg Q6H PRN PO MILD PAIN(1-3)OR ELEVATED TEMP Last administered on 05/25/18at 15:29; Admin Dose 650 MG; Start 05/25/18 at 01:00 Miscellaneous Information 1 ea NOTE XX ; Start 05/25/18 at 01:30 Glucose (Glutose) 15 gm Q15M PRN PO DECREASED GLUCOSE; Start 05/25/18 at 01:30 Glucose (Glutose) 22.5 gm Q15M PRN PO DECREASED GLUCOSE; Start 05/25/18 at 01:30 Dextrose (D50w Syringe) 25 ml Q15M PRN IV DECREASED GLUCOSE; Start 05/25/18 at 01:30 Dextrose (D50w Syringe) 50 ml Q15M PRN IV DECREASED GLUCOSE; Start 05/25/18 at 01:30 Glucagon (Glucagen) 1 mg Q15M PRN IM DECREASED GLUCOSE; Start 05/25/18 at 01:30 Glucose (Glutose) 15 gm Q15M PRN BUCCAL DECREASED GLUCOSE; Start 05/25/18 at 01:30 Epoetin Domingo (Epogen (Esrd)) 10,000 units MoWeFr@17 SC Last administered on 05/26/18at 17:39; Admin Dose 10,000 UNITS; Start 05/26/18 at 17:00 Lisinopril (Zestril) 40 mg DAILY PO Last administered on 05/28/18at 08:14; Admin Dose 40 MG; Start 05/25/18 at 16:00 Melatonin (Melatonin) 5 mg HS PRN PO insomnia Last administered on 05/27/18at 22:19; Admin Dose 5 MG; Start 05/25/18 at 16:00 Ondansetron HCl (Zofran Inj) 4 mg Q4H PRN IV NAUSEA AND/OR VOMITING Last administered on 05/27/18 12:47; Admin Dose 4 MG; Start 05/25/18 at 21:00 Heparin Sodium (Porcine) (Heparin (1000 Units/ml)) 4,500 unit AFTER DIALYSIS CATHETER Last administered on 05/26/18 04:05; Admin Dose 4,500 UNIT; Start 05/26/18 at 01:30 Lubiprostone (Amitiza) 24 mcg BID PO Last administered on 05/28/18 21:25; Admin Dose 24 MCG; Start 05/26/18 at 13:00 Ceftriaxone Sodium 50 ml @ 100 mls/hr Q24H IVPB Last administered on 05/28/18 21:41; Admin Dose 100 MLS/HR; Start 05/27/18 at 22:00 Vancomycin HCl (Vanco Iv Per Pharmacy) VANCOMYCIN PER PHARMACY PER PROTOCOL XX ; Start 05/27/18 at 20:30 KESHIA SANABRIA May 29, 2018 08:22
[2018-05-29] MEDS: FISH OIL 1,000 MG CAP PO SCH ×2 (08:56→21:15)
[2018-05-29] MEDS: RIVASTIGMINE 4.6MG/24H PATCH TRANSDERM SCH (08:56)
[2018-05-29] MEDS: LUBIPROSTONE 24 MCG CAP PO SCH ×2 (08:56→21:15)
[2018-05-29] MEDS: CLOPIDOGREL 75 MG TAB PO SCH (08:56)
[2018-05-29] MEDS: ATENOLOL 50 MG TAB PO SCH (08:58)
[2018-05-29] MEDS: FUROSEMIDE 40 MG TAB PO SCH (08:59)
[2018-05-29] MEDS: AMLODIPINE 5 MG TAB PO SCH ×2 (08:59→21:15)
[2018-05-29] MEDS: LISINOPRIL 20 MG TAB PO SCH (08:59)
[2018-05-29] MEDS ORDERED: ERGOCALCIFEROL 50,000 UNIT CAP PO SCH (09:00)
--- NOTE | 2018-05-29 09:20 | PN ---
DATE: 05/29/2018 SUBJECTIVE: The patient is scheduled for a femoral dialysis catheter placement today, possible Perm- A-Cath. I did speak with the patient's son yesterday updating him on his mother's condition and info rmed him that multiple attempts have been attempted to place Perm-A-Cath in the right internal jugula r vein without success. The patient's son is aware. OBJECTIVE: VITAL SIGNS: Blood pressure is 148/66, respirations 18, pulse 70, temperature 98.3. HEENT: Head is normocephalic. NECK: Supple. HEART: Regular rate. LUNGS: Show diminished breath sounds at the base. ABDOMEN: Soft, nontender to palpation without rebound or guarding. EXTREMITIES: Negative for clubbing, cyanosis, no edema. DERMATOLOGIC: No rashes. MUSCULOSKELETAL: No joint effusion. NEUROLOGIC: No change in exam. MEDICATIONS: Reviewed. LABORATORY DATA: Show sodium 139, potassium 3.8, chloride 96, BUN 33, creatinine 4.97, calcium 10.3, phosphorus 6.3, magnesium 1.6. White count 8.0, hemoglobin 9.2, platelet count is 313. ASSESSMENT AND PLAN: 1. End-stage renal disease. The patient's last hemodialysis was 2 days ago. Anticipate dialysis to day once Perm-A-Cath is placed. We will continue to monitor closely. 2. Access. The patient's right internal jugular Perm-A-Cath is not working. Anticipate femoral Per m-A-Cath placement today by Dr. Meredith. We will monitor closely. 3. Acute heart failure, improved with dialysis and ultrafiltration. Continue to monitor. 4. Leukocytosis, etiology may be secondary to cellulitis, Perm-A-Cath site. The patient was on anti biotic therapy. Appreciate ID's evaluation. 5. Anemia. Continue to monitor hemoglobin and hematocrit levels. Continue Epogen. 6. Hematochezia. The patient is seen by GI, recommended colonoscopy. The patient's family has refu sed to date. 7. Mineral bone disorder, monitor calcium and phosphorus levels. Continue phosphate binders. 8. Hypertension. Continue current blood pressure regimen. 9. Atrial fibrillation. Continue current medical management. The patient would require long-term a nticoagulation; however, the patient's son has refused at this time. We will continue to monitor. 10. Coronary artery disease. Continue current treatment plan. 11. History of cerebrovascular accident. Continue medical management. 12. Diabetes. Continue current insulin regimen. 13. Dyslipidemia. Continue statin therapy. 14. Acute encephalopathy and dementia, etiology is toxic metabolic. Mental status is stable. Lita nue Exelon patch. 15. Gastrointestinal and deep vein thrombosis prophylaxis. Dictated By: STEVE REN DO NR/NTS Conf#: [id number] DID#: [id number] CC: SILVIA RENTERIA DO;*EndCC*
--- NOTE | 2018-05-29 13:47 | CONS ---
Assessment/Plan Assessment/Plan Hospital Course (Demo Recall) ID PROGRESS NOTE CURRENT ABX: DAY # Vanco IV #3+ Ceftriaxone #3 24H INTERVAL SUMMARY * More alert today -- sitting in [place] eating lunch w/assistance from her son. No fevers, VSS. * Son reports "she is tired of being in the hospital and wants to go home -- I'm going to take her home today even if they don't replace the HD catheter." Son expresses impatience -- despite my explanation that the goal was attempt HD line salvage with Alteplase --rather than move directly to replacement of the catheter. I explained that this is a Holiday weekend and only one provider head golf professional to many [facility]als who can place these lines -- the vascular CT surgeon is head golf professional to life threatening emergencies over the weekend -- I enco uraged him to be patient. The sound appears ungrateful for the excellent medical care his mother has received here, despite medical conditions that are beyond human control which in essence are not life-threatening. * HD Vascular Access is non-functional despite treatment w/alteplase yesterday. Plan is for replacement -- pending CT surgeon. MICRO * 05/25/18 (-)MRSA * 05/26/18 BCx (-) PHYSICAL EXAMINATION: GENERAL: Afebrile, VSS, obese, HEENT: AT, NC, anicteric NECK: Grossly normal CHEST: Equal chest rise bilaterally = without dyspnea * R-CHEST PermCath w/mild erythema at cath insert site HEART: Pulse RRR ABDOMEN: Soft / ND EXTREMITIES: Warm, SKIN: No rash, no diaphoresis ID ASSESSMENT 77 yo F admit with: 1. SIRS w/Transient leukocytosis on admission = reactive vs cellulitis at PermCath site w/erythema noted * 05/26/18 BCx (-) 2. Malfunctioning HD catheter - The catheter was recently replaced 2 weeks ago. * - HD cath not patent order for alteplase inserted tonight 3. 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 Diabetes mellitus w/poly-neuropathies 5. Hypertension 6. Dyslipidemia. 7. Hx of Cerebrovascular accident. 8. Hx of Coronary artery disease w/prior PCI-Stent 9. Hx of CHF * 05/24/18 CXR: Stable mild to moderate bilateral pleural effusions with atelectasis/consolidations. 9. Dementia. 10. Chronic encephalopathy. (-)MRSA Nares Screen ABX ALLERGIES: KNDA INVASIVES: PIV CURRENT ABX: DAY # =>Vanco IV #3+ Ceftriaxone #3 ID RECOMMENDATIONS/PLAN: 1. R-CHEST PermCath w/mild erythema at cath insert site concerning for local cellulitis -- Rx Vanco IV + Ceftriaxone initiated. 2. HD Vascular Access is non-functional today despite treatment w/alteplase =>Plan is for replacement. 3. Brief discussion w/son today == Son requesting to take patient home today. * DC PLANNING: When cleared for DC home, may DC on Vanco 1GM IVPB Q96H to be given @ HD center post HD until last day 06/04/17 to cover the concern of local cellulitis at current HD insertion site. . Consultation Date/Type/Reason Admit Date/Time May 26, 2018 at 15:55 Initial Consult Date Date/Time of Note DATE: 05/29/18 TIME: 13:41 Exam/Review of Systems Exam Vitals Vital Signs Date Temp Pulse Resp B/P (MAP) Pulse Ox O2 O2 Flow FiO2 Time Delivery Rate 05/29/18 61 12:01 05/29/18 98.2 19 118/60 94 11:44 (79) 05/28/18 Nasal 2.0 08:25 Cannula Intake and Output 05/28/18 05/28/18 05/29/18 1515:00 23:00 07:00 IntakeIntake Total 450 ml 300 ml BalanceBalance 450 ml 300 ml Results Result Diagram: 05/29/18 0508 05/29/18 0508 Results 24hrs Laboratory Tests Test 05/28/18 17:21 05/28/18 17:39 05/28/18 21:22 05/29/18 05:08 Bedside Glucose 102 126 Sodium Level 136 139 Potassium Level 3.8 3.8 Chloride Level 99 96 L Carbon Dioxide Level 29 28 Anion Gap 8 15 #H Blood Urea Nitrogen 32 H 33 H Creatinine 4.55 H 4.97 H Est Glomerular Filtrat Rate mL/min Glucose Level 100 118 Calcium Level 10.2 10.3 H White Blood Count 8.0 Red Blood Count 3.46 L Hemoglobin 9.2 L Hematocrit 30.6 L Mean Corpuscular 88.4 Volume Mean Corpuscular 26.6 L Hemoglobin Mean Corpuscular 30.1 L Hemoglobin Concent Red Cell 16.7 H Distribution Width Platelet Count 315 Mean Platelet Volume 9.6 Immature 0.500 H Granulocytes % Neutrophils % 76.0 Lymphocytes % 12.8 L Monocytes % 7.5 Eosinophils % 2.6 Basophils % 0.6 Nucleated Red Blood 0.0 Cells % Immature 0.040 H Granulocytes # Neutrophils # 6.1 Lymphocytes # 1.0 Monocytes # 0.6 Eosinophils # 0.2 Basophils # 0.1 Nucleated Red Blood 0.0 Cells # Phosphorus Level 6.3 H Magnesium Level 1.6 L Random Vancomycin 16.5 Level Test 05/29/18 07:27 05/29/18 12:33 Bedside Glucose 115 119 Medications Medication Current Medications Amlodipine Besylate (Norvasc) 5 mg BID PO Last administered on 05/29/18 08:59; Admin Dose 5 MG; Start 05/25/18 at 09:00 Atenolol (Tenormin) 50 mg DAILY PO Last administered on 05/29/18 08:58; Admin Dose 50 MG; Start 05/25/18 at 09:00 Clopidogrel Bisulfate (plaVIX) 75 mg DAILY PO Last administered on 05/29/18 08:56; Admin Dose 75 MG; Start 05/25/18 at 09:00; Status Hold Ergocalciferol (Drisdol) 50,000 unit Mo@0900 PO Last administered on 05/29/18 08:56; Admin Dose 50,000 UNIT; Start 05/29/18 at 09:00 Furosemide (Lasix) 40 mg DAILY PO Last administered on 05/29/18 08:59; Admin Dose 40 MG; Start 05/25/18 at 09:00 Nateglinide (Starlix) 120 mg AC MEALS PO Last administered on 05/29/18 12:41; Admin Dose 120 MG; Start 05/25/18 at 07:00 Rivastigmine Tartrate (Exelon 4.6 Mg/ 24 Hr Patch) 1 patch DAILY TRANSDERM Last administered on 05/29/18 08:56; Admin Dose 1 PATCH; Start 05/25/18 at 09:00 Fish Oil (Fish Oil) 1,000 mg Q12 PO Last administered on 05/29/18 08:56; Admin Dose 1,000 MG; Start 05/25/18 at 10:00 Atorvastatin Calcium (Lipitor) 40 mg DAILY@21 PO Last administered on 05/28/18at 21:25; Admin Dose 40 MG; Start 05/25/18 at 21:00 Diagnostic Test (Pha) (Accu-Chek) 1 ea 02 XX ; Start 05/25/18 at 02:00 Insulin Aspart (Novolog Insulin Pen) NOVOLOG *MILD* ALGORITHM WITH MEALS BEDTIME SC Last administered on 05/25/18at 08:48; Admin Dose 1 UNIT; Start 05/25/18 at 08:00 Acetaminophen (Tylenol Tab) 650 mg Q6H PRN PO MILD PAIN(1-3)OR ELEVATED TEMP Last administered on 05/25/18at 15:29; Admin Dose 650 MG; Start 05/25/18 at 01:00 Miscellaneous Information 1 ea NOTE XX ; Start 05/25/18 at 01:30 Glucose (Glutose) 15 gm Q15M PRN PO DECREASED GLUCOSE; Start 05/25/18 at 01:30 Glucose (Glutose) 22.5 gm Q15M PRN PO DECREASED GLUCOSE; Start 05/25/18 at 01:30 Dextrose (D50w Syringe) 25 ml Q15M PRN IV DECREASED GLUCOSE; Start 05/25/18 at 01:30 Dextrose (D50w Syringe) 50 ml Q15M PRN IV DECREASED GLUCOSE; Start 05/25/18 at 01:30 Glucagon (Glucagen) 1 mg Q15M PRN IM DECREASED GLUCOSE; Start 05/25/18 at 01:30 Glucose (Glutose) 15 gm Q15M PRN BUCCAL DECREASED GLUCOSE; Start 05/25/18 at 01:30 Epoetin Domingo (Epogen (Esrd)) 10,000 units MoWeFr@17 SC Last administered on 05/26/18at 17:39; Admin Dose 10,000 UNITS; Start 05/26/18 at 17:00 Lisinopril (Zestril) 40 mg DAILY PO Last administered on 05/29/18at 08:59; Admin Dose 40 MG; Start 05/25/18 at 16:00 Melatonin (Melatonin) 5 mg HS PRN PO insomnia Last administered on 05/27/18at 2 2:19; Admin Dose 5 MG; Start 05/25/18 at 16:00 Ondansetron HCl (Zofran Inj) 4 mg Q4H PRN IV NAUSEA AND/OR VOMITING Last administered on 05/27/18 12:47; Admin Dose 4 MG; Start 05/25/18 at 21:00 Heparin Sodium (Porcine) (Heparin (1000 Units/ml)) 4,500 unit AFTER DIALYSIS CATHETER Last administered on 05/26/18 04:05; Admin Dose 4,500 UNIT; Start 05/26/18 at 01:30 Lubiprostone (Amitiza) 24 mcg BID PO Last administered on 05/29/18at 08:56; Admin Dose 24 MCG; Start 05/26/18 at 13:00 Ceftriaxone Sodium 50 ml @ 100 mls/hr Q24H IVPB Last administered on 05/28/18 21:41; Admin Dose 100 MLS/HR; Start 05/27/18 at 22:00 Vancomycin HCl (Vanco Iv Per Pharmacy) VANCOMYCIN PER PHARMACY PER PROTOCOL XX ; Start 05/27/18 at 20:30 FELIPE SCALES NP May 29, 2018 13:47
--- NOTE | 2018-05-29 14:11 | CONS ---
Assessment/Plan Cardiology NYHA: III Heart Failure Type: Acute on Chronic Heart Failure Type: Diastolic Assessment/Plan Hospital Course (Demo Recall) Assessment: Acute on chronic diastolic heart failure - secondary to inadequate ultrafiltration Coronary artery disease - details unknown, clinically stable Atrial fibrillation - likely chronic, CHADS2 score of 5 End-stage renal disease - on hemodialysis, but right internal jugular Permacath not working, awaiting femoral dialysis catheter placement Rectal bleeding - gastroenterology planning colonoscopy once patient has been off of clopidogrel for 5-7 days Hypertension Diabetes mellitus History of stroke Recommendations: -clopidogrel on hold pending colonoscopy -awaiting femoral dialysis catheter placement -volume management via hemodialysis as per nephrology -continue anti-hypertensive medications, adjust as needed -continue statin -once gastrointestinal bleeding has been evaluated and deemed safe for anticoagulation, would recommend starting on Eliquis for atrial fibrillation thromboembolic prophylaxis (instead of restarting on clopidogrel) Discussed with eventual plan for anticoagulation with patient's son at bedside and he is agreeable. Consultation Date/Type/Reason Admit Date/Time May 26, 2018 at 15:55 Initial Consult Date Type of Consult Cardiology Date/Time of Note DATE: 05/29/18 TIME: 14:03 24 HR Interval Summary Free Text/Dictation Right internal jugular Permacath was replaced on 05/26/2018, but reportedly still not working. Now awaiting vascular surgery to place femoral dialysis catheter as multiple attempts with the right internal jugular has failed. Had episode and rectal bleeding. Evaluated by gastroenterology and planning colonoscopy once patient has been off of clopidogrel for 5-7 days. Detailed Summary Additional Comments 14 point review of systems without changes. Exam/Review of Systems Vital Signs Vitals Vital Signs Date Temp Pulse Resp B/P (MAP) Pulse Ox O2 O2 Flow FiO2 Time Delivery Rate 05/29/18 61 12:01 05/29/18 98.2 19 118/60 94 11:44 (79) 05/28/18 Nasal 2.0 08:25 Cannula Intake and Output 05/28/18 05/28/18 05/29/18 1515:00 23:00 07:00 IntakeIntake Total 450 ml 300 ml BalanceBalance 450 ml 300 ml Exam Exam Constitutional: alert; No oriented, No distress Neck: jvd (8cm) Respiratory: crackles/rales (to mid lungs ); No clear to auscultation Cardiovascular: regular rate and rhythm, systolic murmur (2/6 CURT); No edema Gastrointestinal: soft, non-tender; No distended Neurological: nl mental status, nl speech Labs Result Diagram: 05/29/18 0508 05/29/18 0508 Results 24hrs Laboratory Tests Test 05/28/18 17:21 05/28/18 17:39 05/28/18 21:22 05/29/18 05:08 Bedside Glucose 102 126 Sodium Level 136 139 Potassium Level 3.8 3.8 Chloride Level 99 96 L Carbon Dioxide Level 29 28 Anion Gap 8 15 #H Blood Urea Nitrogen 32 H 33 H Creatinine 4.55 H 4.97 H Est Glomerular Filtrat Rate mL/min Glucose Level 100 118 Calcium Level 10.2 10.3 H White Blood Count 8.0 Red Blood Count 3.46 L Hemoglobin 9.2 L Hematocrit 30.6 L Mean Corpuscular 88.4 Volume Mean Corpuscular 26.6 L Hemoglobin Mean Corpuscular 30.1 L Hemoglobin Concent Red Cell 16.7 H Distribution Width Platelet Count 315 Mean Platelet Volume 9.6 Immature 0.500 H Granulocytes % Neutrophils % 76.0 Lymphocytes % 12.8 L Monocytes % 7.5 Eosinophils % 2.6 Basophils % 0.6 Nucleated Red Blood 0.0 Cells % Immature 0.040 H Granulocytes # Neutrophils # 6.1 Lymphocytes # 1.0 Monocytes # 0.6 Eosinophils # 0.2 Basophils # 0.1 Nucleated Red Blood 0.0 Cells # Phosphorus Level 6.3 H Magnesium Level 1.6 L Random Vancomycin 16.5 Level Test 05/29/18 07:27 05/29/18 12:33 Bedside Glucose 115 119 Medications Medications Current Medications Amlodipine Besylate (Norvasc) 5 mg BID PO Last administered on 05/29/18at 08:59; Admin Dose 5 MG; Start 05/25/18 at 09:00 Atenolol (Tenormin) 50 mg DAILY PO Last administered on 05/29/18 08:58; Admin Dose 50 MG; Start 05/25/18 at 09:00 Clopidogrel Bisulfate (plaVIX) 75 mg DAILY PO Last administered on 05/29/18 08:56; Admin Dose 75 MG; Start 05/25/18 at 09:00; Status Hold Ergocalciferol (Drisdol) 50,000 unit Mo@0900 PO Last administered on 05/29/18 08:56; Admin Dose 50,000 UNIT; Start 05/29/18 at 09:00 Furosemide (Lasix) 40 mg DAILY PO Last administered on 05/29/18 08:59; Admin Dose 40 MG; Start 05/25/18 at 09:00 Nateglinide (Starlix) 120 mg AC MEALS PO Last administered on 05/29/18 12:41; Admin Dose 120 MG; Start 05/25/18 at 07:00 Rivastigmine Tartrate (Exelon 4.6 Mg/ 24 Hr Patch) 1 patch DAILY TRANSDERM Last administered on 05/29/18 08:56; Admin Dose 1 PATCH; Start 05/25/18 at 09:00 Fish Oil (Fish Oil) 1,000 mg Q12 PO Last administered on 05/29/18 08:56; Admin Dose 1,000 MG; Start 05/25/18 at 10:00 Atorvastatin Calcium (Lipitor) 40 mg DAILY@21 PO Last administered on 05/28/18 21:25; Admin Dose 40 MG; Start 05/25/18 at 21:00 Diagnostic Test (Pha) (Accu-Chek) 1 ea 02 XX ; Start 05/25/18 at 02:00 Insulin Aspart (Novolog Insulin Pen) NOVOLOG *MILD* ALGORITHM WITH MEALS BEDTIME SC Last administered on 05/25/18 08:48; Admin Dose 1 UNIT; Start 05/25/18 at 08:00 Acetaminophen (Tylenol Tab) 650 mg Q6H PRN PO MILD PAIN(1-3)OR ELEVATED TEMP Last administered on 05/25/18at 15:29; Admin Dose 650 MG; Start 05/25/18 at 01:00 Miscellaneous Information 1 ea NOTE XX ; Start 05/25/18 at 01:30 Glucose (Glutose) 15 gm Q15M PRN PO DECREASED GLUCOSE; Start 05/25/18 at 01:30 Glucose (Glutose) 22.5 gm Q15M PRN PO DECREASED GLUCOSE; Start 05/25/18 at 01:30 Dextrose (D50w Syringe) 25 ml Q15M PRN IV DECREASED GLUCOSE; Start 05/25/18 at 01:30 Dextrose (D50w Syringe) 50 ml Q15M PRN IV DECREASED GLUCOSE; Start 05/25/18 at 01:30 Glucagon (Glucagen) 1 mg Q15M PRN IM DECREASED GLUCOSE; Start 05/25/18 at 01:30 Glucose (Glutose) 15 gm Q15M PRN BUCCAL DECREASED GLUCOSE; Start 05/25/18 at 01:30 Epoetin Domingo (Epogen (Esrd)) 10,000 units MoWeFr@17 SC Last administered on 05/26/18at 17:39; Admin Dose 10,000 UNITS; Start 05/26/18 at 17:00 Lisinopril (Zestril) 40 mg DAILY PO Last administered on 05/29/18at 08:59; Admin Dose 40 MG; Start 05/25/18 at 16:00 Melatonin (Melatonin) 5 mg HS PRN PO insomnia Last administered on 05/27/18 22:19; Admin Dose 5 MG; Start 05/25/18 at 16:00 Ondansetron HCl (Zofran Inj) 4 mg Q4H PRN IV NAUSEA AND/OR VOMITING Last administered on 05/27/18at 12:47; Admin Dose 4 MG; Start 05/25/18 at 21:00 Heparin Sodium (Porcine) (Heparin (1000 Units/ml)) 4,500 unit AFTER DIALYSIS CATHETER Last administered on 05/26/18 04:05; Admin Dose 4,500 UNIT; Start 05/26/18 at 01:30 Lubiprostone (Amitiza) 24 mcg BID PO Last administered on 05/29/18at 08:56; Admin Dose 24 MCG; Start 05/26/18 at 13:00 Ceftriaxone Sodium 50 ml @ 100 mls/hr Q24H IVPB Last administered on 05/28/18at 21:41; Admin Dose 100 MLS/HR; Start 05/27/18 at 22:00 Vancomycin HCl (Vanco Iv Per Pharmacy) VANCOMYCIN PER PHARMACY PER PROTOCOL XX ; Start 05/27/18 at 20:30 SIMEON ANGELO MD May 29, 2018 14:11
[2018-05-29] MEDS ORDERED: HEPARIN 5,000 UNIT/1 ML VIAL CATHETER ONE (18:45)
[2018-05-29] MEDS: ATORVASTATIN 40 MG TAB PO SCH (21:15)
[2018-05-29] MEDS: CEFTRIAXONE 2 GM/50 ML (PMX) 50 ML IVPB SCH (21:15)
[2018-05-29] MEDS ORDERED: VANCOMYCIN 1 GM 250 ML IVPB SCH (23:00)
[2018-05-29] MEDS ORDERED: HEPARIN 1000 UNITS/ML 10 ML INJ CATHETER SCH (23:10)
[2018-05-30] VITALS (22 sets, daily range): BP systolic 99–156; BP diastolic 50–76; PULSE 57–70; RESP 18–20
[2018-05-30] MEDS: ACCU-CHEK XX SCH (02:00)
[2018-05-30] MEDS: NATEGLINIDE 120 MG TAB PO SCH ×3 (06:30→17:31)
[2018-05-30] MEDS: INSULIN ASPART [NOVOLOG] 3 ML PEN SC SCH ×3 (07:51→17:27)
--- NOTE | 2018-05-30 08:20 | CONS ---
Assessment/Plan Assessment/Plan Hospital Course (Demo Recall) 77 yo female 1. Rectal bleeding which is stable now. -Pt FOB negative. Iron panel wnl. 2. Severe constipation. -resolved 3. Renal failure. -s/p rt femoral permacath placed 05/29 -HD today 4. Mild anemia. -stable 5. Hypertension. 6. Atrial fibrillation. Pt is on plavix, dc'd 05/29 7. Diabetes mellitus. 8. Dementia. PLAN: AM labs pending Spoke with sonMehdi who has agreed to colonoscopy but Pt was started on plavix 05/25 for a fib. Cardiology is okay with anti coagulants on hold until colonoscopy. Would like Eliquis restarted once cleared by GI. DC'd plavix on 05/29, will plan for colonoscopy this Tuesday or Tuesday. Continue on bowel regimen. Pt examined and plan of care discussed with Dr. Monsivais Consultation Date/Type/Reason Admit Date/Time May 26, 2018 at 15:55 Initial Consult Date Date/Time of Note DATE: 05/30/18 TIME: 08:18 Exam/Review of Systems Exam Vitals Vital Signs Date Temp Pulse Resp B/P (MAP) Pulse Ox O2 O2 Flow FiO2 Time Delivery Rate 05/30/18 62 08:01 05/30/18 98.1 20 144/73 94 07:13 (96) 05/28/18 Nasal 2.0 08:25 Cannula Intake and Output 05/29/18 05/29/18 05/30/18 1515:00 23:00 07:00 IntakeIntake Total 850 ml BalanceBalance 850 ml Results Result Diagram: 05/29/18 0508 05/29/18 0508 Results 24hrs Laboratory Tests Test 05/29/18 12:33 05/29/18 17:25 05/29/18 21:18 05/30/18 03:15 Bedside Glucose 119 109 143 100 Test 05/30/18 06:32 05/30/18 07:49 Bedside Glucose 94 108 Medications Medication Current Medications Amlodipine Besylate (Norvasc) 5 mg BID PO Last administered on 05/29/18at 21:15; Admin Dose 5 MG; Start 05/25/18 at 09:00 Atenolol (Tenormin) 50 mg DAILY PO Last administered on 05/29/18at 08:58; Admin Dose 50 MG; Start 05/25/18 at 09:00 Clopidogrel Bisulfate (plaVIX) 75 mg DAILY PO Last administered on 05/29/18 08:56; Admin Dose 75 MG; Start 05/25/18 at 09:00; Status Hold Ergocalciferol (Drisdol) 50,000 unit Mo@0900 PO Last administered on 05/29/18 08:56; Admin Dose 50,000 UNIT; Start 05/29/18 at 09:00 Furosemide (Lasix) 40 mg DAILY PO Last administered on 05/29/18 08:59; Admin Dose 40 MG; Start 05/25/18 at 09:00 Nateglinide (Starlix) 120 mg AC MEALS PO Last administered on 05/30/18 06:30; Admin Dose 120 MG; Start 05/25/18 at 07:00 Rivastigmine Tartrate (Exelon 4.6 Mg/ 24 Hr Patch) 1 patch DAILY TRANSDERM Last administered on 05/29/18 08:56; Admin Dose 1 PATCH; Start 05/25/18 at 09:00 Fish Oil (Fish Oil) 1,000 mg Q12 PO Last administered on 05/29/18 21:15; Admin Dose 1,000 MG; Start 05/25/18 at 10:00 Atorvastatin Calcium (Lipitor) 40 mg DAILY@21 PO Last administered on 05/29/18 21:15; Admin Dose 40 MG; Start 05/25/18 at 21:00 Diagnostic Test (Pha) (Accu-Chek) 1 ea 02 XX ; Start 05/25/18 at 02:00 Insulin Aspart (Novolog Insulin Pen) NOVOLOG *MILD* ALGORITHM WITH MEALS BEDTIME SC Last administered on 05/25/18 08:48; Admin Dose 1 UNIT; Start 05/25/18 at 08:00 Acetaminophen (Tylenol Tab) 650 mg Q6H PRN PO MILD PAIN(1-3)OR ELEVATED TEMP Last administered on 05/25/18 15:29; Admin Dose 650 MG; Start 05/25/18 at 01:00 Miscellaneous Information 1 ea NOTE XX ; Start 05/25/18 at 01:30 Glucose (Glutose) 15 gm Q15M PRN PO DECREASED GLUCOSE; Start 05/25/18 at 01:30 Glucose (Glutose) 22.5 gm Q15M PRN PO DECREASED GLUCOSE; Start 05/25/18 at 01:30 Dextrose (D50w Syringe) 25 ml Q15M PRN IV DECREASED GLUCOSE; Start 05/25/18 at 01:30 Dextrose (D50w Syringe) 50 ml Q15M PRN IV DECREASED GLUCOSE; Start 05/25/18 at 01:30 Glucagon (Glucagen) 1 mg Q15M PRN IM DECREASED GLUCOSE; Start 05/25/18 at 01:30 Glucose (Glutose) 15 gm Q15M PRN BUCCAL DECREASED GLUCOSE; Start 05/25/18 at 01:30 Epoetin Domingo (Epogen (Esrd)) 10,000 units MoWeFr@17 SC Last administered on 05/26/18 17:39; Admin Dose 10,000 UNITS; Start 05/26/18 at 17:00 Lisinopril (Zestril) 40 mg DAILY PO Last administered on 05/29/18 08:59; Admin Dose 40 MG; Start 05/25/18 at 16:00 Melatonin (Melatonin) 5 mg HS PRN PO insomnia Last administered on 05/27/18 22:19; Admin Dose 5 MG; Start 05/25/18 at 16:00 Ondansetron HCl (Zofran Inj) 4 mg Q4H PRN IV NAUSEA AND/OR VOMITING Last administered on 05/27/18 12:47; Admin Dose 4 MG; Start 05/25/18 at 21:00 Heparin Sodium (Porcine) (Heparin (1000 Units/ml)) 4,500 unit AFTER DIALYSIS CATHETER Last administered on 05/26/18 04:05; Admin Dose 4,500 UNIT; Start 05/26/18 at 01:30 Lubiprostone (Amitiza) 24 mcg BID PO Last administered on 05/29/18 21:15; Admin Dose 24 MCG; Start 05/26/18 at 13:00 Ceftriaxone Sodium 50 ml @ 100 mls/hr Q24H IVPB Last administered on 05/29/18 21:15; Admin Dose 100 MLS/HR; Start 05/27/18 at 22:00 Vancomycin HCl (Vanco Iv Per Pharmacy) VANCOMYCIN PER PHARMACY PER PROTOCOL XX ; Start 05/27/18 at 20:30 KESHIA SANABRIA May 30, 2018 08:20
--- NOTE | 2018-05-30 08:44 | PN ---
DATE: 05/30/2018 SUBJECTIVE: The patient is stable. Yesterday, the patient had a dialysis catheter placed in the rig ht femoral vein. The patient did not want to have hemodialysis last night. Dialysis is pending for this morning. No other events noted. OBJECTIVE: VITAL SIGNS: Blood pressure is 144/73, respirations 20, pulse 65, temperature 98.1. HEENT: Head is normocephalic. NECK: Supple. HEART: Regular rate. LUNGS: Show diminished breath sounds at the base. ABDOMEN: Soft, nontender to palpation without rebound or guarding. EXTREMITIES: Negative for clubbing, cyanosis, no edema. DERMATOLOGIC: No rashes. MUSCULOSKELETAL: No joint effusion. NEUROLOGIC: No change in exam. MEDICATIONS: Reviewed. LABORATORY DATA: Currently pending. ASSESSMENT AND PLAN: 1. End-stage renal disease. The patient is scheduled for dialysis today. We will dialyze for 3 eneida rs 3k bath, calcium 2.5. 2. Access. The patient had a right Juan catheter placed in the femoral line. We will continue l ocal access care. We will follow up with vascular surgery for one possible Perm-A-Cath can be placed . 3. Acute heart failure, improved. Continue ultrafiltration dialysis. 4. Leukocytosis, cellulitis. The patient is on antibiotic therapy. Continue to monitor. 5. Anemia. Continue to monitor hemoglobin and hematocrit levels. Continue Epogen. 6. Hematochezia. The patient was seen by GI recommended colonoscopy, currently refused per patient. 7. Mineral bone disorder, monitor calcium and phosphorus levels. Continue phosphate binders. 8. Hypertension. Continue current blood pressure regimen. 9. Atrial fibrillation, currently rate controlled. Continue medical management. The patient is cur rently off all anticoagulation. We will continue to monitor. Follow up with cardiology for recommen dations. 10. Coronary artery disease. Continue current treatment plan. 11. History of cerebrovascular accident. Continue medical management. 12. Diabetes. Continue current insulin regimen. 13. Dyslipidemia. Continue statin therapy. 14. Acute encephalopathy and dementia, etiology is toxic metabolic. Continue Exelon patch. 15. Gastrointestinal and deep vein thrombosis prophylaxis. Dictated By: STEVE REN DO NR/NTS Conf#: [id number] DID#: [id number] CC: SILVIA RENTERIA DO;*EndCC*
[2018-05-30] MEDS: FISH OIL 1,000 MG CAP PO SCH ×2 (09:00→12:17)
[2018-05-30] MEDS: AMLODIPINE 5 MG TAB PO SCH ×2 (09:00→17:27)
[2018-05-30] MEDS: LISINOPRIL 20 MG TAB PO SCH (09:00)
[2018-05-30] MEDS: LUBIPROSTONE 24 MCG CAP PO SCH ×2 (09:00→12:17)
[2018-05-30] MEDS: ATENOLOL 50 MG TAB PO SCH (09:00)
[2018-05-30] MEDS: FUROSEMIDE 40 MG TAB PO SCH (09:00)
[2018-05-30] MEDS: RIVASTIGMINE 4.6MG/24H PATCH TRANSDERM SCH (12:17)
[2018-05-30] MEDS: HEPARIN 1000 UNITS/ML 10 ML INJ CATHETER SCH (12:58)
--- NOTE | 2018-05-30 13:58 | CONS ---
Assessment/Plan Assessment/Plan Hospital Course (Demo Recall) Acute on chronic diastolic heart failure - secondary to inadequate ultrafiltration. Euvolemic Coronary artery disease - details unknown, clinically stable Atrial fibrillation - likely chronic, CHADS2 score of 5. Plan for anticoagulation after GI workup End-stage renal disease - on hemodialysis. Right internal jugular Permacath malfunction. S/p femoral catheter Rectal bleeding - gastroenterology planning colonoscopy once patient has been off of clopidogrel for 5-7 days Hypertension Diabetes mellitus History of stroke -clopidogrel on hold pending colonoscopy. Start Eliquis instead of plavix after once ok per GI. -amlodipine 5mg BID -lisinopril 40mg -atenolol 50mg -lasix 40mg daily -ok to proceed with colonoscopy -HD per nephrology Consultation Date/Type/Reason Admit Date/Time May 26, 2018 at 15:55 Initial Consult Date Date/Time of Note DATE: 05/30/18 TIME: 13:54 24 HR Interval Summary Free Text/Dictation No events. Plan for HD today. Pt confused but conversational. No complaints Exam/Review of Systems Exam Vitals Vital Signs Date Temp Pulse Resp B/P (MAP) Pulse Ox O2 O2 Flow FiO2 Time Delivery Rate 05/30/18 69 18 115/56 96 Room Air 12:15 (75) 05/30/18 97.6 11:41 05/28/18 2.0 08:25 Intake and Output 05/29/18 05/29/18 05/30/18 1515:00 23:00 07:00 IntakeIntake Total 850 ml BalanceBalance 850 ml Constitutional: alert; No oriented, No distress Neck: supple; No jvd Respiratory: diminished breath sounds; No clear to auscultation Cardiovascular: No regular rate and rhythm (IRIR), No edema Gastrointestinal: soft, non-tender; No distended Neurological: nl mental status, nl speech Results Result Diagram: 05/29/18 0508 05/29/18 0508 Results 24hrs Laboratory Tests Test 05/29/18 17:25 05/29/18 21:18 05/30/18 03:15 05/30/18 06:32 Bedside Glucose 109 143 100 94 Test 05/30/18 07:49 05/30/18 11:50 Bedside Glucose 108 84 Medications Medication Current Medications Amlodipine Besylate (Norvasc) 5 mg BID PO Last administered on 05/29/18 21:15; Admin Dose 5 MG; Start 05/25/18 at 09:00 Atenolol (Tenormin) 50 mg DAILY PO Last administered on 05/29/18 08:58; Admin Dose 50 MG; Start 05/25/18 at 09:00 Clopidogrel Bisulfate (plaVIX) 75 mg DAILY PO Last administered on 05/29/18 08:56; Admin Dose 75 MG; Start 05/25/18 at 09:00; Status Hold Ergocalciferol (Drisdol) 50,000 unit Mo@0900 PO Last administered on 05/29/18 08:56; Admin Dose 50,000 UNIT; Start 05/29/18 at 09:00 Furosemide (Lasix) 40 mg DAILY PO Last administered on 05/29/18 08:59; Admin Dose 40 MG; Start 05/25/18 at 09:00 Nateglinide (Starlix) 120 mg AC MEALS PO Last administered on 05/30/18 12:17; Admin Dose 120 MG; Start 05/25/18 at 07:00 Rivastigmine Tartrate (Exelon 4.6 Mg/ 24 Hr Patch) 1 patch DAILY TRANSDERM Last administered on 05/30/18 12:17; Admin Dose 1 PATCH; Start 05/25/18 at 09:00 Fish Oil (Fish Oil) 1,000 mg Q12 PO Last administered on 05/30/18 12:17; Admin Dose 1,000 MG; Start 05/25/18 at 10:00 Atorvastatin Calcium (Lipitor) 40 mg DAILY@21 PO Last administered on 05/29/18 21:15; Admin Dose 40 MG; Start 05/25/18 at 21:00 Diagnostic Test (Pha) (Accu-Chek) 1 ea 02 XX ; Start 05/25/18 at 02:00 Insulin Aspart (Novolog Insulin Pen) NOVOLOG *MILD* ALGORITHM WITH MEALS BEDTIME SC Last administered on 05/25/18 08:48; Admin Dose 1 UNIT; Start 05/25/18 at 08:00 Acetaminophen (Tylenol Tab) 650 mg Q6H PRN PO MILD PAIN(1-3)OR ELEVATED TEMP Last administered on 05/25/18 15:29; Admin Dose 650 MG; Start 05/25/18 at 01:00 Miscellaneous Information 1 ea NOTE XX ; Start 05/25/18 at 01:30 Glucose (Glutose) 15 gm Q15M PRN PO DECREASED GLUCOSE; Start 05/25/18 at 01:30 Glucose (Glutose) 22.5 gm Q15M PRN PO DECREASED GLUCOSE; Start 05/25/18 at 01:30 Dextrose (D50w Syringe) 25 ml Q15M PRN IV DECREASED GLUCOSE; Start 05/25/18 at 01:30 Dextrose (D50w Syringe) 50 ml Q15M PRN IV DECREASED GLUCOSE; Start 05/25/18 at 01:30 Glucagon (Glucagen) 1 mg Q15M PRN IM DECREASED GLUCOSE; Start 05/25/18 at 01:30 Glucose (Glutose) 15 gm Q15M PRN BUCCAL DECREASED GLUCOSE; Start 05/25/18 at 01:30 Epoetin Domingo (Epogen (Esrd)) 10,000 units MoWeFr@17 SC Last administered on 05/26/18at 17:39; Admin Dose 10,000 UNITS; Start 05/26/18 at 17:00 Lisinopril (Zestril) 40 mg DAILY PO Last administered on 05/29/18at 08:59; Admin Dose 40 MG; Start 05/25/18 at 16:00 Melatonin (Melatonin) 5 mg HS PRN PO insomnia Last administered on 05/27/18 22:19; Admin Dose 5 MG; Start 05/25/18 at 16:00 Ondansetron HCl (Zofran Inj) 4 mg Q4H PRN IV NAUSEA AND/OR VOMITING Last administered on 05/27/18at 12:47; Admin Dose 4 MG; Start 05/25/18 at 21:00 Heparin Sodium (Porcine) (Heparin (1000 Units/ml)) 4,500 unit AFTER DIALYSIS CATHETER Last administered on 05/30/18 12:58; Admin Dose 4,500 UNIT; Start 05/26/18 at 01:30 Lubiprostone (Amitiza) 24 mcg BID PO Last administered on 05/30/18 12:17; Admin Dose 24 MCG; Start 05/26/18 at 13:00 Ceftriaxone Sodium 50 ml @ 100 mls/hr Q24H IVPB Last administered on 05/29/18at 21:15; Admin Dose 100 MLS/HR; Start 05/27/18 at 22:00 Vancomycin HCl (Vanco Iv Per Pharmacy) VANCOMYCIN PER PHARMACY PER PROTOCOL XX ; Start 05/27/18 at 20:30 NABIL ALBRECHT May 30, 2018 13:58
[2018-05-30] MEDS: EPOETIN 10000 UNITS/1 ML INJ (ESRD) SC SCH ×2 (14:09→14:11)
--- NOTE | 2018-05-30 15:47 | CONS ---
Assessment/Plan Assessment/Plan Hospital Course (Demo Recall) ID PROGRESS NOTE CURRENT ABX: DAY # Vanco IV #4+ Ceftriaxone # 24H INTERVAL SUMMARY * s/p new femoral temporary Drew catheter for HD - PermCath removed * Clinically stable -- alert, awake, responsive, calm -- son is present which provides her with security/companionship * No fevers, VSS. MICRO * 05/25/18 (-)MRSA * 05/26/18 BCx (-) PHYSICAL EXAMINATION: GENERAL: Afebrile, VSS, obese, HEENT: AT, NC, anicteric NECK: Grossly normal CHEST: Equal chest rise bilaterally = without dyspnea * R-CHEST PermCath w/mild erythema at cath insert site HEART: Pulse RRR ABDOMEN: Soft / ND EXTREMITIES: Warm, SKIN: No rash, no diaphoresis ID ASSESSMENT 77 yo F admit with: 1. SIRS w/Transient leukocytosis on admission = reactive vs cellulitis at PermCath site w/erythema noted * 05/26/18 BCx (-) 2. Malfunctioning HD catheter - The catheter was recently replaced 2 weeks ago. * - HD cath not patent order for alteplase inserted tonight 3. 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 Diabetes mellitus w/poly-neuropathies 5. Hypertension 6. Dyslipidemia. 7. Hx of Cerebrovascular accident. 8. Hx of Coronary artery disease w/prior PCI-Stent 9. Hx of CHF * 05/24/18 CXR: Stable mild to moderate bilateral pleural effusions with atelectasis/consolidations. 9. Dementia. 10. Chronic encephalopathy. (-)MRSA Nares Screen ABX ALLERGIES: KNDA INVASIVES: PIV, FEM DREW CURRENT ABX: DAY # =>Vanco IV #4+ Ceftriaxone #4 ID RECOMMENDATIONS/PLAN: 1. DC PLANNING=> May DC OFF ABX -- PermCath now removed 2. May proceed to new PermCath if BCx remain negative after temporal DREW Cath. . Consultation Date/Type/Reason Admit Date/Time May 26, 2018 at 15:55 Initial Consult Date Date/Time of Note DATE: 05/30/18 TIME: 15:44 Exam/Review of Systems Exam Vitals Vital Signs Date Temp Pulse Resp B/P (MAP) Pulse Ox O2 O2 Flow FiO2 Time Delivery Rate 05/30/18 69 18 115/56 96 Room Air 12:15 (75) 05/30/18 97.6 11:41 05/28/18 2.0 08:25 Intake and Output 05/29/18 05/29/18 05/30/18 1515:00 23:00 07:00 IntakeIntake Total 850 ml BalanceBalance 850 ml Results Result Diagram: 05/29/18 0508 05/29/18 0508 Results 24hrs Laboratory Tests Test 05/29/18 17:25 05/29/18 21:18 05/30/18 03:15 05/30/18 06:32 Bedside Glucose 109 143 100 94 Test 05/30/18 07:49 05/30/18 11:50 Bedside Glucose 108 84 Medications Medication Current Medications Amlodipine Besylate (Norvasc) 5 mg BID PO Last administered on 05/29/18 21:15; Admin Dose 5 MG; Start 05/25/18 at 09:00 Atenolol (Tenormin) 50 mg DAILY PO Last administered on 05/29/18 08:58; Admin Dose 50 MG; Start 05/25/18 at 09:00 Clopidogrel Bisulfate (plaVIX) 75 mg DAILY PO Last administered on 05/29/18 08:56; Admin Dose 75 MG; Start 05/25/18 at 09:00; Status Hold Ergocalciferol (Drisdol) 50,000 unit Mo@0900 PO Last administered on 05/29/18 08:56; Admin Dose 50,000 UNIT; Start 05/29/18 at 09:00 Furosemide (Lasix) 40 mg DAILY PO Last administered on 05/29/18 08:59; Admin Dose 40 MG; Start 05/25/18 at 09:00 Nateglinide (Starlix) 120 mg AC MEALS PO Last administered on 05/30/18 12:17; Admin Dose 120 MG; Start 05/25/18 at 07:00 Rivastigmine Tartrate (Exelon 4.6 Mg/ 24 Hr Patch) 1 patch DAILY TRANSDERM Last administered on 05/30/18 12:17; Admin Dose 1 PATCH; Start 05/25/18 at 09:00 Fish Oil (Fish Oil) 1,000 mg Q12 PO Last administered on 05/30/18 12:17; Admin Dose 1,000 MG; Start 05/25/18 at 10:00 Atorvastatin Calcium (Lipitor) 40 mg DAILY@21 PO Last administered on 05/29/18at 21:15; Admin Dose 40 MG; Start 05/25/18 at 21:00 Diagnostic Test (Pha) (Accu-Chek) 1 ea 02 XX ; Start 05/25/18 at 02:00 Insulin Aspart (Novolog Insulin Pen) NOVOLOG *MILD* ALGORITHM WITH MEALS BEDTIME SC Last administered on 05/25/18at 08:48; Admin Dose 1 UNIT; Start at 08:00 Acetaminophen (Tylenol Tab) 650 mg Q6H PRN PO MILD PAIN(1-3)OR ELEVATED TEMP Last administered on 05/25/18at 15:29; Admin Dose 650 MG; Start 05/25/18 at 01:00 Miscellaneous Information 1 ea NOTE XX ; Start 05/25/18 at 01:30 Glucose (Glutose) 15 gm Q15M PRN PO DECREASED GLUCOSE; Start 05/25/18 at 01:30 Glucose (Glutose) 22.5 gm Q15M PRN PO DECREASED GLUCOSE; Start 05/25/18 at 01:3 0 Dextrose (D50w Syringe) 25 ml Q15M PRN IV DECREASED GLUCOSE; Start 05/25/18 at 01:30 Dextrose (D50w Syringe) 50 ml Q15M PRN IV DECREASED GLUCOSE; Start 05/25/18 at 01:30 Glucagon (Glucagen) 1 mg Q15M PRN IM DECREASED GLUCOSE; Start 05/25/18 at 01:30 Glucose (Glutose) 15 gm Q15M PRN BUCCAL DECREASED GLUCOSE; Start 05/25/18 at 01:30 Epoetin Domingo (Epogen (Esrd)) 10,000 units MoWeFr@17 SC Last administered on 05/30/18at 14:11; Admin Dose 10,000 UNITS; Start 05/26/18 at 17:00 Lisinopril (Zestril) 40 mg DAILY PO Last administered on 05/29/18at 08:59; Admin Dose 40 MG; Start 05/25/18 at 16:00 Melatonin (Melatonin) 5 mg HS PRN PO insomnia Last administered on 05/27/18at 22:19; Admin Dose 5 MG; Start 05/25/18 at 16:00 Ondansetron HCl (Zofran Inj) 4 mg Q4H PRN IV NAUSEA AND/OR VOMITING Last a dministered on 05/27/18 12:47; Admin Dose 4 MG; Start 05/25/18 at 21:00 Heparin Sodium (Porcine) (Heparin (1000 Units/ml)) 4,500 unit AFTER DIALYSIS CATHETER Last administered on 05/30/18 12:58; Admin Dose 4,500 UNIT; Start 05/26/18 at 01:30 Lubiprostone (Amitiza) 24 mcg BID PO Last administered on 05/30/18 12:17; Admin Dose 24 MCG; Start 05/26/18 at 13:00 Ceftriaxone Sodium 50 ml @ 100 mls/hr Q24H IVPB Last administered on 05/29/18 21:15; Admin Dose 100 MLS/HR; Start 05/27/18 at 22:00 Vancomycin HCl (Vanco Iv Per Pharmacy) VANCOMYCIN PER PHARMACY PER PROTOCOL XX ; Start 05/27/18 at 20:30 FELIPE SCALES NP May 30, 2018 15:47
--- NOTE | 2018-05-31 19:47 | DS ---
DATE OF ADMISSION: 05/26/2018 DATE OF DISCHARGE: 05/30/2018 HOSPITAL COURSE: This is a 77-year-old female with a past medical history of hypertension, diabetes, history of end-stage renal disease who presented to [facility] due to malfunctioni ng Perm-A-Cath. The patient was previously admitted approximately 2 weeks ago with similar complaint s, had exchange of Perm-A-Cath and was subsequently discharged. The patient now presents with occlus ion of Perm-A-Cath. Upon arrival, the patient had TPA place in her PermCath. Unfortunately, the pat ient's catheter was not working. Vascular surgeon, Dr. Meredith, was consulted, underwent Perm-A-Ca th exchange. However, Perm-A-Cath continued to have poor flow. The patient underwent a Juan cath eter placement in the right femoral vein. Following placement, the patient had hemodialysis, tolerat ed well. The patient also during the hospital course had an episode of bloody stool which were subse quently improved. Seen by GI who recommended colonoscopy. The patient was also seen by cardiology, had undergone AFib and recommended long-term anticoagulation. The patient and the patient's son want ed to be discharged home. The risks and benefits were explained to the patient's family, they do not wish to stay in the hospital any longer. They do not want to wait for eventual Perm-A-Cath placemen t of a right femoral dialysis access and colonoscopy which was scheduled for early next week. Theref ore, the patient will be discharged home on anticoagulation of Eliquis 5 mg b.i.d. The patient will then arrived, Tuesday for an outpatient scheduling of a Perm-A-Cath placement of the right femoral drake e. At the time of discharge, the patient is stable, no acute distress. FINAL DIAGNOSES: 1. End-stage renal disease. 2. Access. The patient has a right femoral Juan catheter, will have outpatient PermCath placed tuesday by Dr. Meredith. 3. Volume overload, improved. 4. Cellulitis, had a Perm-A-Cath site, improved. The patient is status post antibiotics. 5. Anemia. 6. Hematochezia, resolved. The patient will follow up with GI in outpatient setting for possible co lonoscopy. 7. Mineral bone disorder. 8. Atrial fibrillation, currently on Eliquis. The patient's Plavix was discontinued. 9. Coronary artery disease. 10. Cerebrovascular accident. 11. Diabetes. FINAL MEDICATIONS: 1. The patient will be discharged on Eliquis 5 mg p.o. b.i.d. Plavix was discontinued. Directly to ld the patient's son. 2. Other medications the patient will be discharged on amlodipine, atenolol, Exelon patch and Cresto r. Please note I spent over 30 minutes of time preparing the patient's discharge. At the time of discharge, the patient is stable, in no acute distress. Dictated By: STEVE MONCADA/NTS Conf#: [id number] DID#: [id number]
== END 2018-05-30 18:00 | disposition home or self-care (01) | DRG 73 ==
LOC: E/R 15:23 → 6WM 22:27 → OBSVTOIN 05-26 15:55
PROVIDERS: ADMIT Internal Medicine Nephrology; ATTEND Internal Medicine Nephrology
PROC: 02H633Z Insertion of Infusion Device into Right Atrium, Percutaneous Approach (ICD-10-PCS; 2018-05-26)
PROC: 05PYX3Z Removal of Infusion Device from Upper Vein, External Approach (ICD-10-PCS; 2018-05-26)
PROC: 0JPT3XZ Removal of Tunneled Vascular Access Device from Trunk Subcutaneous Tissue and Fascia, Percutaneous Approach (ICD-10-PCS; 2018-05-26)
PROC: 0JH63XZ Insertion of Tunneled Vascular Access Device into Chest Subcutaneous Tissue and Fascia, Percutaneous Approach (ICD-10-PCS; principal; 2018-05-26 17:00)
DX: E11.42 Type 2 diabetes mellitus with diabetic polyneuropathy (principal); N18.6 End stage renal disease; I50.33 Acute on chronic diastolic (congestive) heart failure; T82.49XA Other complication of vascular dialysis catheter, initial encounter; I13.2 Hypertensive heart and chronic kidney disease with heart failure and with stage 5 chronic kidney disease, or end stage renal disease; R65.10 Systemic inflammatory response syndrome (SIRS) of non-infectious origin without acute organ dysfunction; L03.90 Cellulitis, unspecified; K92.1 Melena; G92 Toxic encephalopathy; E11.22 Type 2 diabetes mellitus with diabetic chronic kidney disease; Z99.2 Dependence on renal dialysis; E87.5 Hyperkalemia; I25.10 Atherosclerotic heart disease of native coronary artery without angina pectoris; I48.2 Chronic atrial fibrillation; Z86.73 Personal history of transient ischemic attack (TIA), and cerebral infarction without residual deficits; Z95.5 Presence of coronary angioplasty implant and graft; I25.2 Old myocardial infarction; E78.5 Hyperlipidemia, unspecified; Z87.891 Personal history of nicotine dependence; E87.70 Fluid overload, unspecified; D64.9 Anemia, unspecified; E83.9 Disorder of mineral metabolism, unspecified; F03.90 Unspecified dementia, unspecified severity, without behavioral disturbance, psychotic disturbance, mood disturbance, and anxiety; K59.00 Constipation, unspecified; E87.6 Hypokalemia
CPT/HCPCS: 36415; 71045; 80048; 80076; 80202; 82270; 82728; 82962; 83540; 83735; 84100; 84484; 85025; 85610; 85730; 87040; 87081; 90935; 93005; 96374; 96375; 97110; 97116; 97162; 97530; G0378; C1752; J0696; J1200; J1644; J1815; J2060; J2250; J2405; J2997; J3010; J3370; J7050; Q4081

== ENCOUNTER 2018-06-05 13:15 | Observation (INO) | payer MEDICARE, OTHER ==
[2018-06-02 16:30] VITALS: Ht 152.4 cm; Wt 80.0 kg
[~2018-06-05] VITALS: Ht 152.4 cm; Wt 80.0 kg
[2018-06-05] VITALS (19 sets, daily range): BP systolic 128–197; BP diastolic 60–97; PULSE 70–86; RESP 18–52
[2018-06-05] MEDS ORDERED: LIDOCAINE 1% (MPF) 30 ML INJ ONE (20:45)
[2018-06-05] MEDS ORDERED: HEPARIN 1000 UNITS/ML 10 ML INJ ONE ×2 (20:45→21:52)
[2018-06-05] MEDS ORDERED: IOHEXOL 300MG/ML 30 ML BTL ONE (20:47)
--- NOTE | 2018-06-05 21:07 | PREAC ---
Date/Time of Note Date/Time of Note DATE: 06/05/18 TIME: 21:04 Anesthesia Eval and Record Evaluation Time Pre-Procedure Interview DATE: 06/05/18 TIME: 21:04 Age 77 Sex female NPO: 8 hrs Preoperative diagnosis ESRD on HD Planned procedure Femoral permacath placement Past Medical History Past Medical History: Includes Cardio: HTN, Dyslipidemia Renal: ESRD on dialysis, HD last: Surgery & Anesthesia Issues No known issue Meds Anticoagulation: No Beta Mac within 24 hr: Yes Reason Beta Mac not given: Pt. not on B-Mac Reported Medications Rosuvastatin Calcium* (Crestor*) 10 Mg Tablet, 10 MG PO QHS, #30 TAB 05/24/18 Rivastigmine* Patch (Exelon* Patch) 4.6 Mg/24 Hr Patch.td24, 1 PATCH TD DAILY, PATCH 05/24/18 Nateglinide* (Nateglinide*) 120 Mg Tablet, 120 MG PO AC MEALS, TAB 05/24/18 Icosapent Ethyl (VASCEPA) 1 Gm Capsule, 2 GM PO DAILY, CAP 05/24/18 Furosemide* (Furosemide*) 40 Mg Tablet, 40 MG PO DAILY, TAB 05/24/18 Ergocalciferol (Vitamin D2) (VITAMIN D2) 50,000 Unit Capsule, 65460 UNIT PO Q MON, CAP 05/24/18 Clopidogrel Bisulfate* (Clopidogrel Bisulfate*) 75 Mg Tablet, 75 MG PO DAILY, #30 TAB 05/24/18 Atenolol* (Atenolol*) 50 Mg Tablet, 50 MG PO DAILY, #30 TAB 05/24/18 Amlodipine Besylate* (Norvasc*) 5 Mg Tablet, 5 MG PO BID, TAB 05/24/18 Meds reviewed: Yes Allergies Coded Allergies: No Known Allergy (Verified , PER RN, 06/05/18) Uncoded Allergies: CHICKEN (Allergy, Mild, RASHES, 02/26/08) Allergies Reviewed: Yes Labs/Studies Labs Reviewed: Reviewed by anesthesiologist Result Diagram: 06/05/18 1400 06/05/18 1400 Laboratory Tests 06/05/18 14:00 test: N/A Studies: ECG Pre-procedure Exam Last vitals Vital Signs Date Temp Pulse Resp B/P (MAP) Pulse Ox O2 O2 Flow FiO2 Time Delivery Rate 06/05/18 97.4 79 18 128/60 99 Room Air 14:11 (82) Airway: Adequate mouth opening, Adequate thyromental dist Mallampati: Mallampati II Teeth: Normal Lung: Normal Heart: Normal ASA Physical Status ASA physical status: 4 Emergency: E Planned Anesthetic General/MAC: LMA Planned Pain Management Parenteral pain med, Local by surgeon Pre-operative Attestations Prior to commencing anesthesia and surgery, the patient was re-evaluated, there was verification of: *The patient's identity *The results of appropriate recent lab work and preoperative vital signs *The above evaluation not changing prior to induction *Anesthetic plan, risk benefits, alternative and complications discussed with patient/family; questions answered; patient/family understands, accepts and wishes to proceed. MARIAMA LEAL MD Jun 05, 2018 21:07
[2018-06-05] MEDS ORDERED: FENTAnyl 50 MCG/ML VIAL ONE (21:18)
[2018-06-05] MEDS ORDERED: MIDAZOLAM 1 MG/ML 2 ML INJ ONE (21:18)
[2018-06-05] MEDS ORDERED: ETOMIDATE 20 MG INJ ONE (21:57)
[2018-06-05] MEDS ORDERED: ONDANSETRON 4 MG INJ ONE (21:57)
[2018-06-05] MEDS ORDERED: LIDOCAINE 2% (SDV) 5 ML INJ ONE (21:57)
[2018-06-05] MEDS ORDERED: CEFAZOLIN 1 GM INJ ONE (21:57)
--- NOTE | 2018-06-05 22:00 | OPR ---
Date/Time of Note Date/Time of Note DATE: 06/05/18 TIME: 21:56 Operative Report Procedure Date: Jun 05, 2018 Preoperative Diagnosis End-stage renal disease Postoperative Diagnosis Same Operation/Procedure Performed Right femoral 50 cm tunneled hemodialysis catheter placement Removal of chest permacath Surgeon see signature line Guardian Family Member None Anesthesia Type: MAC Estimated Blood Loss: minimal Transfusion none Specimen None Grafts/Implants none Complications none Disposition: PACU Procedure Description Patient was placed supine position prepped and draped in the usual sterile fashion timeout was called antibiotics was given access was gained in the right common femoral vein guidewire was advanced through without any difficulty subcutaneous tissues were dilated 50 cm tunneled hemodialysis catheter was brought into the right subcutaneous tunnel advanced into the right femoral vein iliac vein and inferior vena cava at the tip was placed at the junction of the inferior vena cava right atrium inferior venacavogram was done which showed catheter is in good position no thrombus the catheter was secured to skin using 2-0 silk sutures the exit site was closed using a single 3-0 Vicryl suture in interrupted fashion the permacath and the chest was then removed in its entirety appropriate dressings applied patient tolerated procedure well JOLANTA BEAUCHAMP MD Jun 05, 2018 22:00
--- NOTE | 2018-06-05 22:11 | PAC ---
Date/Time of Note Date/Time of Note DATE: 06/05/18 TIME: 22:11 Post-Anesthesia Notes Post-Anesthesia Note Last documented vital signs Vital Signs Date Temp Pulse Resp B/P (MAP) Pulse Ox O2 O2 Flow FiO2 Time Delivery Rate 06/05/18 97.4 79 18 128/60 99 Room Air 14:11 (82) Activity: WNL Respiratory function: WNL Cardiovascular function: WNL Mental status: Baseline Pain reasonably controlled: Yes Hydration appropriate: Yes Nausea/Vomiting absent: Yes Comments BP:118/67, PU:87, Spo2:100%, T:98,7 MARIAMA LEAL MD Jun 05, 2018 22:11
[2018-06-05] MEDS ORDERED: LABETALOL HCL 20MG INJ ONE (22:16)
[2018-06-05] MEDS: FENTAnyl 50 MCG/ML VIAL IV PRN ×2 (22:21→22:35)
[2018-06-05] MEDS: LABETALOL HCL 20MG INJ IV PRN ×2 (22:22→22:48)
[2018-06-05] MEDS ORDERED: hydrALAzine 20 MG INJ IV PRN ×2 (22:30→23:00)
[2018-06-05] MEDS ORDERED: ONDANSETRON 4 MG INJ IV PRN (22:30)
[2018-06-05] MEDS ORDERED: DIPHENHYDRAMINE 50 MG INJ IV PRN ×2 (22:30→23:30)
[2018-06-06] VITALS (25 sets, daily range): BP systolic 98–158; BP diastolic 58–97; PULSE 72–97; RESP 14–23
[2018-06-06] MEDS: LORAZEPAM 2 MG INJ IV PRN ×2 (01:27→06:01)
[2018-06-06] MEDS ORDERED: ACETAMINOPHEN 325 MG TAB PO PRN (01:30)
--- NOTE | 2018-06-06 08:29 | HP ---
DATE OF ADMISSION: 06/06/2018 CHIEF COMPLAINT: Perm-A-Cath placement. HISTORY OF PRESENT ILLNESS: This is a 77-year-old female with a past medical history of hypertension , diabetes, history of end-stage renal disease, presented to [facility] on 05/26/19 19 for evaluation of function from malfunctioning Perm-A-Cath. The patient also had a previous admis lori to [facility] with similar issue of malfunctioning PermCath. The patient gia santos last hospital course had a Juan catheter placed in the patient's right femoral vein. The patie nt was then discharged home for hemodialysis and to follow up with outpatient Perm-A-Cath placement. The patient while at home, apparently had dislodgement of a Juan catheter. The patient's family, however, did not bring the patient back to the hospital and accordingly for the past 5 to 6 days the patient had not had hemodialysis. The patient now arrives to [facility] and under went Perm-A-Cath placement right femoral vein by Dr. Meredith The patient was subsequently admitted to med/surg for further evaluation. Upon my evaluation of the patient at this time, he is currently stable. Denies any fevers, chills, n ausea, vomiting. PAST MEDICAL HISTORY: As stated above, history of coronary artery disease, diabetes, hypertension, h istory of CVA, history of atrial fibrillation. PAST SURGICAL HISTORY: Status post Perm-A-Cath placement, status post cardiac catheterization. ALLERGIES: NO KNOWN DRUG ALLERGIES. FAMILY HISTORY: No family history of kidney disease. SOCIAL HISTORY: Does not drink, smoke, do drugs. MEDICATIONS: The patient's medications have been reviewed. REVIEW OF SYSTEMS: A 14-point review of systems conducted. Pertinent positives stated in HPI, other melendez negative. PHYSICAL EXAMINATION: VITAL SIGNS: Blood pressure is 150/86, respiration 18, pulse 67, temperature 97.7. HEENT: Head is normocephalic. NECK: Supple. HEART: Regular irregular. LUNGS: Show diminished breath sounds at base. ABDOMEN: Soft, nontender to palpation without rebound or guarding. EXTREMITIES: Negative for clubbing, cyanosis, no edema. DERMATOLOGIC: No rashes. MUSCULOSKELETAL: The patient has a Perm-A-Cath in the right femoral vein, clean, dry, and intact. NEUROLOGIC: No focal deficits. MEDICATIONS: The patient's medications have been reviewed. LABORATORY DATA: Shows a white count 5.3, hemoglobin 8.3, platelet count 344. Sodium 141, potassium 4.9, BUN 41, creatinine 3.99, calcium 10.8. ASSESSMENT AND PLAN: This is a 77-year-old female who presents with: 1. End-stage renal disease. The patient is status post PermCath placement right femoral vein. The p vignesh is for dialysis today. We will dialyze 3 hours 3k bath, calcium 2.5, ultrafiltrate as tolerated. 2. Access. The patient has a Perm-A-Cath in the right femoral vein. The patient's previous PermCat h in the upper extremity was nonfunctional. We will continue local access care. 3. Anemia. Monitor hemoglobin and hematocrit levels. Will give Epogen as needed. 4. Mineral bone disorder, monitor calcium and phosphorus levels. 5. Hypertension. Continue current blood pressure regimen. 6. Atrial fibrillation. Continue medical management. Continue Eliquis. 7. History of coronary artery disease. Continue current treatment plan. 8. History of cerebrovascular accident. Continue medical management. 9. Diabetes. Continue to monitor Accu-Cheks. Continue insulin regimen. 10. Dementia, continue Exelon patch. 11. GI and deep venous thrombosis prophylaxis. Dictated By: STEVE MONCADA/ILSA Conf#: [id number] DID#: [id number] CC: JOLANTA MEREDITH MD;*EndCC*
[2018-06-06] MEDS ORDERED: APIXABAN 5 MG TABLET PO SCH (09:00)
[2018-06-06] MEDS ORDERED: AMLODIPINE 5 MG TAB PO SCH (09:00)
[2018-06-06] MEDS ORDERED: ATENOLOL 50 MG TAB PO SCH (09:00)
[2018-06-06] MEDS ORDERED: HEPARIN 1000 UNITS/ML 10 ML INJ CATHETER SCH (10:00)
[2018-06-06] MEDS ORDERED: EPOETIN 10000 UNITS/1 ML INJ (ESRD) SC SCH (10:00)
[2018-06-06] MEDS ORDERED: RIVASTIGMINE 4.6MG/24H PATCH TRANSDERM SCH (10:00)
[2018-06-06] MEDS ORDERED: ACCU-CHEK XX SCH (11:10)
[2018-06-06] MEDS ORDERED: NATEGLINIDE 120 MG TAB PO SCH (11:10)
[2018-06-06] MEDS ORDERED: NON-FORMULARY/PATIENT OWN MED (Rosuvastatin Calcium* (Crestor*) 10 MG) PO SCH (21:00)
[2018-06-06] MEDS ORDERED: ATORVASTATIN 10 MG TAB PO SCH (21:00)
== END 2018-06-06 16:00 | disposition home or self-care (01) ==
LOC: SDS 13:15 → CCL 13:15 → MS1 22:55 → UNDOADMIN 06-06 00:25 → MS1 06-06 00:25 → SDS 06-06 00:45 → CCL 06-06 00:45
PROVIDERS: ADMIT Internal Medicine; ATTEND Internal Medicine
DX: I12.0 Hypertensive chronic kidney disease with stage 5 chronic kidney disease or end stage renal disease (principal); N18.6 End stage renal disease; E11.22 Type 2 diabetes mellitus with diabetic chronic kidney disease; Z99.2 Dependence on renal dialysis; I25.10 Atherosclerotic heart disease of native coronary artery without angina pectoris; E78.5 Hyperlipidemia, unspecified; I48.91 Unspecified atrial fibrillation; F03.90 Unspecified dementia, unspecified severity, without behavioral disturbance, psychotic disturbance, mood disturbance, and anxiety; D64.9 Anemia, unspecified; M89.9 Disorder of bone, unspecified; Z86.73 Personal history of transient ischemic attack (TIA), and cerebral infarction without residual deficits
CPT/HCPCS: 36558; 71045; 80048; 82962; 85025; 85610; 85730; 90935; 93005; C1752; G0378; J0360; J0690; J1200; J1644; J2060; J2250; J2405; J3010; Q9967; Q4081

== ENCOUNTER 2018-06-19 04:47 | Observation (INO) | payer MEDICARE, OTHER ==
[2018-06-19] VITALS (26 sets, daily range): BP systolic 108–168; BP diastolic 53–93; PULSE 63–85; RESP 18–20; Ht 152.4 cm; Wt 80.0 kg
[~2018-06-19] VITALS: Ht 152.4 cm; Wt 80.0 kg
[2018-06-19] MEDS ORDERED: FUROSEMIDE 40 MG INJ IV ONE (06:30)
--- NOTE | 2018-06-19 09:35 | HP ---
DATE OF ADMISSION: 06/19/2018 CHIEF COMPLAINT: Shortness of breath. HISTORY OF PRESENT ILLNESS: This is a 77-year-old female with a past medical history of end-stage re nal disease, diabetes, hypertension who presents to [facility] with shortness of br eath. The patient apparently this morning was waking up to go to the bathroom when she became short of breath. Public Health Officer was called. The patient was brought into [facility] Emergency Room. Upon arrival, the patient had a chest x-ray, which showed findings of volume overload, congestive hea rt failure, bilateral pleural effusions. The patient in the emergency room was given diuretic therap y, placed on nasal cannula. There were no reports of any hemoptysis, hematemesis or hematochezia. PAST MEDICAL HISTORY: As stated above, history of end-stage renal disease, history of atrial fibrill ation, history of CVA, history of diabetes, history of hypertension, history of coronary artery disea se. PAST SURGICAL HISTORY: Status post Perm-A-Cath placement. ALLERGIES: NO KNOWN DRUG ALLERGIES. FAMILY HISTORY: No family history of kidney disease. SOCIAL HISTORY: She does not drink, smoke or do drugs. MEDICATIONS: The patient's medications have been reviewed. REVIEW OF SYSTEMS: A 14-point review of systems was conducted. Pertinent positives stated in HPI, o therwise negative. PHYSICAL EXAMINATION: VITAL SIGNS: Blood pressure is 186/89, respirations 22, pulse 89, temperature 98.5. HEENT: Head is normocephalic. NECK: Supple. HEART: Irregularly irregular. LUNGS: Show diminished breath sounds at the base. ABDOMEN: Soft, nontender to palpation without rebound or guarding. EXTREMITIES: Negative for clubbing, cyanosis. Positive edema. DERMATOLOGIC: No rashes. MUSCULOSKELETAL: The patient has noted Perm-A-Cath in the right groin. NEUROLOGIC: No focal deficits. LABORATORY DATA: Shows white count 7.1, hemoglobin 10.2, platelet count 327. Sodium 142, potassium 4.8, BUN 44, creatinine 3.69. BNP 15,000. Chest x-ray was reviewed. ASSESSMENT AND PLAN: This is a 77-year-old female who presents with: 1. Acute hypoxemic respiratory failure. Etiology is secondary to volume overload, pulmonary edema. Plan is for urgent hemodialysis with goal ultrafiltration approximately 2 to 3 liters. We will also continue nebulizer, supplemental oxygen and monitor closely. Consider pulmonary evaluation. 2. End-stage renal disease. The patient has a Perm-A-Cath in the right femoral vein. Plan is for h emodialysis today as stated above. 3. Anemia. Continue to monitor hemoglobin and hematocrit levels. We will give Epogen as needed. 4. Mineral bone disorder, monitor calcium and phosphorus levels. 5. Hypertension. Continue current blood pressure regimen. 6. Atrial fibrillation. Continue Eliquis 5 mg p.o. b.i.d. 7. History of coronary artery disease. Continue medical management. 8. History of cerebrovascular accident. Continue current treatment plan. 9. Diabetes. Continue Accu-Cheks, insulin sliding scale. 10. Dementia. Continue Exelon patch. 11. Gastrointestinal and deep vein thrombosis prophylaxis. Dictated By: STEVE REN DO NR/NTS Conf#: [id number] DID#: [id number] CC: SEVEN BIRD MD;*EndCC*
[2018-06-19] MEDS: ATENOLOL 50 MG TAB PO SCH (10:13)
[2018-06-19] MEDS: FUROSEMIDE 40 MG TAB PO SCH (10:13)
[2018-06-19] MEDS: AMLODIPINE 5 MG TAB PO SCH ×2 (10:13→20:07)
[2018-06-19] MEDS: APIXABAN 5 MG TABLET PO SCH ×2 (10:14→20:07)
[2018-06-19] MEDS ORDERED: ICOS1CAP PO (10:33)
[2018-06-19] MEDS: RIVASTIGMINE 4.6MG/24H PATCH TRANSDERM SCH (11:29)
[2018-06-19] MEDS ORDERED: MELATONIN 5 MG TABLET PO PRN (14:00)
[2018-06-19] MEDS: LISINOPRIL 20 MG TAB PO SCH (14:00)
[2018-06-19] MEDS ORDERED: ONDANSETRON 4 MG INJ IV PRN (14:00)
[2018-06-19] MEDS ORDERED: DEXTROSE 50% 50 ML SYRINGE IV PRN ×2 (14:00)
[2018-06-19] MEDS ORDERED: GLUCAGON 1 MG INJ IM PRN (14:00)
[2018-06-19] MEDS ORDERED: GLUCOSE GEL 15 GRAM TUBE BUCCAL PRN (14:00)
[2018-06-19] MEDS ORDERED: GLUCOSE GEL 15 GRAM TUBE PO PRN ×2 (14:00)
[2018-06-19] MEDS ORDERED: ACETAMINOPHEN 500 MG TAB PO PRN (14:00)
[2018-06-19] MEDS ORDERED: EPOETIN 10000 UNITS/1 ML INJ (ESRD) SC ONE (15:00)
[2018-06-19] MEDS ORDERED: LORAZEPAM 2 MG INJ IV ONE (15:30)
[2018-06-19] MEDS: HEPARIN 1000 UNITS/ML 10 ML INJ CATHETER SCH (17:51)
[2018-06-19] MEDS: INSULIN ASPART [NOVOLOG] 3 ML PEN SC SCH ×2 (18:00→20:08)
[2018-06-19] MEDS: ATORVASTATIN 40 MG TAB PO SCH (20:07)
[2018-06-20] VITALS (9 sets, daily range): BP systolic 110–145; BP diastolic 58–72; PULSE 58–80; RESP 18–20
[2018-06-20] MEDS: INSULIN ASPART [NOVOLOG] 3 ML PEN SC SCH ×4 (08:00→21:00)
[2018-06-20] MEDS: LISINOPRIL 20 MG TAB PO SCH (08:23)
[2018-06-20] MEDS: ATENOLOL 50 MG TAB PO SCH (08:23)
[2018-06-20] MEDS: FUROSEMIDE 40 MG TAB PO SCH (08:23)
[2018-06-20] MEDS: AMLODIPINE 5 MG TAB PO SCH ×2 (08:24→21:59)
[2018-06-20] MEDS: APIXABAN 5 MG TABLET PO SCH ×2 (08:24→22:00)
[2018-06-20] MEDS: RIVASTIGMINE 4.6MG/24H PATCH TRANSDERM SCH (08:26)
[2018-06-20] MEDS ORDERED: INFLUENZA VIRUS VACCINE 0.5 ML (DISPENSING) IM* ONE (09:00)
--- NOTE | 2018-06-20 09:50 | DS ---
DATE OF ADMISSION: 06/19/2018 DATE OF DISCHARGE: 06/20/2018 HOSPITAL COURSE: This is a 77-year-old female with a past medical history of end-stage renal disease , diabetes, hypertension, who presented to [facility] with shortness of breath. Th e patient was noted to be hypoxemic at home. EMS services were called. The patient was brought to [facility] and was found to be volume overload, admitted to telemetry for evaluation . The patient had urgent hemodialysis with clinical improvement. The patient is otherwise currently stable. There are no reports of any hemoptysis, hematemesis or hematochezia. Anticipation is that the patient will likely be discharged home today. We will follow up with her primary care physician and outpatient hemodialysis. FINAL DIAGNOSES: 1. Acute hypoxemic respiratory failure secondary to volume overload, pulmonary edema, improved after receiving hemodialysis. We will continue to monitor. 2. End-stage renal disease. 3. Anemia. 4. Mineral bone disorder. 5. Hypertension. 6. Atrial fibrillation. Continue Eliquis. 7. History of coronary artery disease. 8. Cerebrovascular accident. 9. Diabetes. 10. Dementia. 11. Gastrointestinal I and deep vein thrombosis prophylaxis. FINAL MEDICATIONS: Please see reconciliation list. CONDITION ON DISCHARGE: At time of discharge, the patient is stable, no acute distress. Dictated By: STEVE REN DO NR/NTS Conf#: [id number] DID#: [id number] CC: SEVEN BIRD MD;*EndCC*
--- NOTE | 2018-06-20 13:18 | CONS ---
Assessment/Plan Assessment/Plan Hospital Course (Demo Recall) NSVT:23 beats 06/19/18. Likely NSVT vs afib with aberrancy. Last EF was 2014 so it will be important to make sure it is still preserved. Trops negative and no evidence of ischemia. Electrolytes are ok. May have just been from electrolyte shifts during HD as timing roughly correlates. Acute on chronic ?diastolic heart failure: now resolved after extra HD Chronic afib: now on Eliquis. Rates controlled H/o CVA: 01/26 s/p lytics and transferred to [facility] for thrombectomy. In setting of afib diagnosis, likely was cardioembolic ESRD on HD CAD: unknown details DM HTN Dementia -check echo -switch atenolol to metoprolol 50mg PO BID -if no further NSVT and EF preserved, ok for d/c -amlodipine 5mg BID -lisinopril 20mg -lasix 40mg daily -lipitor 40mg -HD for volume management Consultation Date/Type/Reason Admit Date/Time Jun 19, 2018 at 05:45 Date of Consultation: Jun 20, 2018 Type of Consult Cardiology Reason for Consultation NSVT Requesting Provider: STEVE REN DO Date/Time of Note DATE: 06/20/18 TIME: 13:08 Hx of Present Illness 77 yo F with a h/o dementia, CVA 01/26 s/p lytics and transferred to [facility] for thrombectomy, ESRD on HD, chronic afib now on Eliquis, chronic diastolic CHF, CAD, DM, HTN, recent admission for HD catheter dysfunction and GI bleed, who presented with dyspnea. She was found to have decompensated CHF and is s/p HD with resolution. She was noted to have asymptomatic NSVT overnight 23 beats. The pt is not able to offer much information due to dementia and she thinks she is at home. However denies chest pain or SOB. Trops have been negative,. very limited but per HPI Past Medical History per HPI Home Meds Reported Medications Icosapent Ethyl (VASCEPA) 1 Gm Capsule, 1 GM PO DAILY, CAP 06/19/18 Rosuvastatin Calcium* (Crestor*) 10 Mg Tablet, 10 MG PO QHS, #30 TAB 05/24/18 Rivastigmine* Patch (Exelon* Patch) 4.6 Mg/24 Hr Patch.td24, 1 PATCH TD DAILY, PATCH 2/13/19 Nateglinide* (Nateglinide*) 120 Mg Tablet, 120 MG PO BID WITH MEALS, TAB 05/24/18 Furosemide* (Furosemide*) 40 Mg Tablet, 40 MG PO DAILY, TAB 05/24/18 Ergocalciferol (Vitamin D2) (VITAMIN D2) 50,000 Unit Capsule, 39177 UNIT PO Q MON, CAP 05/24/18 Clopidogrel Bisulfate* (Clopidogrel Bisulfate*) 75 Mg Tablet, 75 MG PO DAILY, #30 TAB 05/24/18 Atenolol* (Atenolol*) 50 Mg Tablet, 50 MG PO DAILY, #30 TAB 05/24/18 Amlodipine Besylate* (Norvasc*) 5 Mg Tablet, 5 MG PO BID, TAB 05/24/18 Discontinued Reported Medications Icosapent Ethyl (VASCEPA) 1 Gm Capsule, 2 GM PO DAILY, CAP 05/24/18 Medications Current Medications Amlodipine Besylate (Norvasc) 5 mg BID PO Last administered on 06/20/18 08:24; Admin Dose 5 MG; Start 06/19/18 at 09:00 Atenolol (Tenormin) 50 mg DAILY PO Last administered on 06/20/18 08:23; Admin Dose 50 MG; Start 06/19/18 at 09:00 Furosemide (Lasix) 40 mg DAILY PO Last administered on 06/20/18 08:23; Admin Dose 40 MG; Start 06/19/18 at 09:00 Rivastigmine Tartrate (Exelon 4.6 Mg/ 24 Hr Patch) 1 patch DAILY TRANSDERM Last administered on 06/20/18 08:26; Admin Dose 1 PATCH; Start 06/19/18 at 09:00 Atorvastatin Calcium (Lipitor) 40 mg QHS PO Last administered on 06/19/18at 20:07; Admin Dose 40 MG; Start 06/19/18 at 21:00 Apixaban (Eliquis) 5 mg BID PO Last administered on 06/20/18 08:24; Admin Dose 5 MG; Start 06/19/18 at 09:00 Hydralazine HCl (Apresoline) 25 mg Q8H PRN PO htn; Start 06/19/18 at 14:00 Lisinopril (Zestril) 20 mg DAILY PO Last administered on 06/20/18at 08:23; Admin Dose 20 MG; Start 06/19/18 at 14:00 Ondansetron HCl (Zofran Inj) 4 mg Q6H PRN IV NAUSEA AND/OR VOMITING; Start 06/19/18 at 14:00 Insulin Aspart (Novolog Insulin Pen) NOVOLOG *MILD* ALGORITHM WITH MEALS BEDTIME SC ; Start 06/19/18 at 18:00 Miscellaneous Information 1 ea NOTE XX ; Start 06/19/18 at 14:00 Glucose (Glutose) 15 gm Q15M PRN PO DECREASED GLUCOSE; Start 06/19/18 at 14:00 Glucose (Glutose) 22.5 gm Q15M PRN PO DECREASED GLUCOSE; Start 06/19/18 at 14:00 Dextrose (D50w Syringe) 25 ml Q15M PRN IV DECREASED GLUCOSE; Start 06/19/18 at 14:00 Dextrose (D50w Syringe) 50 ml Q15M PRN IV DECREASED GLUCOSE; Start 06/19/18 at 14:00 Glucagon (Glucagen) 1 mg Q15M PRN IM DECREASED GLUCOSE; Start 06/19/18 at 14:00 Glucose (Glutose) 15 gm Q15M PRN BUCCAL DECREASED GLUCOSE; Start 06/19/18 at 14:00 Acetaminophen (Tylenol Tab) 1,000 mg Q6H PRN PO MILD PAIN(1-3)OR ELEVATED TEMP Last administered on 06/20/18at 02:00; Admin Dose 1,000 MG; Start 06/19/18 at 14:00 Melatonin (Melatonin) 5 mg HS PRN PO insomnia; Start 06/19/18 at 14:00 Heparin Sodium (Porcine) (Heparin (1000 Units/ml)) 6,100 unit PRN CATHETER Last administered on 06/19/18at 17:51; Admin Dose 6,100 UNIT; Start 06/19/18 at 15:30 Allergies: Coded Allergies: chicken derived (Verified Allergy, Unknown, RASH, 06/19/18) Social History Smoking Status: Never smoker Exam/Review of Systems Exam Vitals Vital Signs Date Temp Pulse Resp B/P (MAP) Pulse Ox O2 O2 Flow FiO2 Time Delivery Rate 06/20/18 98.6 20 110/67 95 11:02 (81) 06/20/18 70 08:00 06/19/18 Room Air 08:41 Intake and Output 06/19/18 06/19/18 06/20/18 1515:00 23:00 07:00 IntakeIntake Total 300 ml 600 ml OutputOutput Total 3400 ml BalanceBalance -3100 ml 600 ml Constitutional: alert; No oriented Psych: no complaints, nl mood/affect Head: normocephalic, atraumatic Neck: supple; No jvd Respiratory: crackles/rales (mild at bases); No clear to auscultation Cardiovascular: systolic murmur (2/6 CURT); No regular rate and rhythm (IRIR), No edema Gastrointestinal: soft, non-tender; No distended Neurological: nl speech; No nl mental status Results Result Diagram: 06/20/18 0539 06/20/18 0539 Results 24hrs Laboratory Tests Test 06/19/18 16:28 06/19/18 17:58 06/19/18 19:51 06/19/18 20:05 Creatine Kinase 24 Creatine Kinase 6.2 Index Creatinine Kinase MB 1.48 (Mass) Troponin I < 0.012 Bedside Glucose 93 122 Phosphorus Level 3.2 Magnesium Level 1.9 Test 06/20/18 05:39 06/20/18 08:22 06/20/18 11:15 White Blood Count 6.7 Red Blood Count 3.65 L Hemoglobin 9.9 L Hematocrit 33.4 L Mean Corpuscular 91.5 Volume Mean Corpuscular 27.1 L Hemoglobin Mean Corpuscular 29.6 L Hemoglobin Concent Red Cell 19.0 H Distribution Width Platelet Count 344 Mean Platelet Volume 10.1 Immature 0.400 Granulocytes % Neutrophils % 68.7 Lymphocytes % 21.1 Monocytes % 7.0 Eosinophils % 2.1 Basophils % 0.7 Nucleated Red Blood 0.0 Cells % Immature 0.030 Granulocytes # Neutrophils # 4.6 Lymphocytes # 1.4 Monocytes # 0.5 Eosinophils # 0.1 Basophils # 0.1 Nucleated Red Blood 0.0 Cells # Sodium Level 142 Potassium Level 4.5 Chloride Level 104 Carbon Dioxide Level 28 Anion Gap 10 Blood Urea Nitrogen 20 # Creatinine 2.45 #H Est Glomerular Filtrat Rate mL/min Glucose Level 122 Calcium Level 10.4 H Phosphorus Level 4.2 Magnesium Level 2.0 Bedside Glucose 134 106 Medications Medication Current Medications Amlodipine Besylate (Norvasc) 5 mg BID PO Last administered on 06/20/18 08:24; Admin Dose 5 MG; Start 06/19/18 at 09:00 Atenolol (Tenormin) 50 mg DAILY PO Last administered on 06/20/18 08:23; Admin Dose 50 MG; Start 06/19/18 at 09:00 Furosemide (Lasix) 40 mg DAILY PO Last administered on 06/20/18 08:23; Admin Dose 40 MG; Start 06/19/18 at 09:00 Rivastigmine Tartrate (Exelon 4.6 Mg/ 24 Hr Patch) 1 patch DAILY TRANSDERM Last administered on 06/20/18 08:26; Admin Dose 1 PATCH; Start 06/19/18 at 09:00 Atorvastatin Calcium (Lipitor) 40 mg QHS PO Last administered on 06/19/18 20:07; Admin Dose 40 MG; Start 06/19/18 at 21:00 Apixaban (Eliquis) 5 mg BID PO Last administered on 06/20/18 08:24; Admin Dose 5 MG; Start 06/19/18 at 09:00 Hydralazine HCl (Apresoline) 25 mg Q8H PRN PO htn; Start 06/19/18 at 14:00 Lisinopril (Zestril) 20 mg DAILY PO Last administered on 06/20/18 08:23; Admin Dose 20 MG; Start 06/19/18 at 14:00 Ondansetron HCl (Zofran Inj) 4 mg Q6H PRN IV NAUSEA AND/OR VOMITING; Start 06/19/18 at 14:00 Insulin Aspart (Novolog Insulin Pen) NOVOLOG *MILD* ALGORITHM WITH MEALS BEDTIME SC ; Start 06/19/18 at 18:00 Miscellaneous Information 1 ea NOTE XX ; Start 06/19/18 at 14:00 Glucose (Glutose) 15 gm Q15M PRN PO DECREASED GLUCOSE; Start 06/19/18 at 14:00 Glucose (Glutose) 22.5 gm Q15M PRN PO DECREASED GLUCOSE; Start 06/19/18 at 14:00 Dextrose (D50w Syringe) 25 ml Q15M PRN IV DECREASED GLUCOSE; Start 06/19/18 at 14:00 Dextrose (D50w Syringe) 50 ml Q15M PRN IV DECREASED GLUCOSE; Start 06/19/18 at 14:00 Glucagon (Glucagen) 1 mg Q15M PRN IM DECREASED GLUCOSE; Start 06/19/18 at 14:00 Glucose (Glutose) 15 gm Q15M PRN BUCCAL DECREASED GLUCOSE; Start 06/19/18 at 14:00 Acetaminophen (Tylenol Tab) 1,000 mg Q6H PRN PO MILD PAIN(1-3)OR ELEVATED TEMP Last administered on 06/20/18at 02:00; Admin Dose 1,000 MG; Start 06/19/18 at 14:00 Melatonin (Melatonin) 5 mg HS PRN PO insomnia; Start 06/19/18 at 14:00 Heparin Sodium (Porcine) (Heparin (1000 Units/ml)) 6,100 unit PRN CATHETER Last administered on 06/19/18at 17:51; Admin Dose 6,100 UNIT; Start 06/19/18 at 15:30 NABIL ALBRECHT Jun 20, 2018 13:18
[2018-06-20] MEDS: METOPROLOL 50 MG TAB PO SCH (22:00)
[2018-06-20] MEDS: ATORVASTATIN 40 MG TAB PO SCH (22:00)
[2018-06-21] VITALS (22 sets, daily range): BP systolic 106–167; BP diastolic 49–94; PULSE 40–76; RESP 18–20
[2018-06-21] MEDS: INSULIN ASPART [NOVOLOG] 3 ML PEN SC SCH ×2 (08:00→11:31)
[2018-06-21] MEDS: RIVASTIGMINE 4.6MG/24H PATCH TRANSDERM SCH (09:00)
[2018-06-21] MEDS: LISINOPRIL 20 MG TAB PO SCH (09:00)
[2018-06-21] MEDS: METOPROLOL 50 MG TAB PO SCH (09:00)
[2018-06-21] MEDS: AMLODIPINE 5 MG TAB PO SCH (09:00)
--- NOTE | 2018-06-21 09:02 | RADRPT ---
Echocardiogram Report Patient Name: IRAIDA NOVOAatient ID: [id number] : 1940 (77y 11m)Study Date: 06/20/2018 1:45:25 PM Gender: FAccession #: [id number] Tech: MD Location: Ref.Physician: NABIL MARTÍNEZ Height(Cm): BSA: Weight(Kg): Quality: AdequateAccount #: Procedures: Echocardiographic Report: Transthoracic echocardiogram with complete 2D, M-Mode, and doppler examination. Indications: NSVT. Measurements: 2D/M Mode Doppler Measurement Value Normal Range Measurement Value Normal Range LVIDd 2D 3.2 [ 3.8 - 5.2 ] cm AV Peak Dallin 1.4 [ 100.0 - 170.0 ] cm/sec LVIDs 2D 1.9 [ 2.2 - 3.5 ] cm AV Peak PG 7.0 [ 2.0 - 9.0 ] mmHg LVPWd 2D 1.9 [ 0.6 - 0.9 ] cm LVOT Peak Dallin 0.8 [ 70.0 - 110.0 ] cm/sec IVSd 2D 1.9 [ 0.6 - 0.9 ] cm LVOT Peak PG 3.0 [ 2.0 - 6.0 ] mmHg AoR Diam 2D 2.4 [ 2.3 - 3.1 ] cm MV E Peak Dallin 1.3 [ 60.0 - 130.0 ] cm/sec EDV 2D 42.2 [ 46.0 - 106.0 ] ml MV Decel Time 222 [ 104 - 258 ] msec ESV 2D 11.5 [ 14.0 - 42.0 ] ml Lat E` Dallin 0.1 [ 10.0 - 15.0 ] cm/sec EF 2D 72.7 [ 54.0 - 74.0 ] percent Lateral E/E` 15.2 [ 1.0 - 2.0 ] ratio LA Dimen 2D 4.0 [ 2.7 - 3.8 ] cm TR Peak Dallin 2.9 [ 100.0 - 280.0 ] cm/sec TR Peak PG 34.0 mmHg RVSP 42.0 [ 10.0 - 36.0 ] mmHg RA Pressure 8.0 mmHg Findings: Left Ventricle: Normal left ventricular systolic function. Normal left ventricular cavity size. Severe concentric left ventricular hypertrophy. Ejection fraction is visually estimated at 65 %. Tissue Doppler/Mitral Doppler indices are consistent with restrictive physiology with markedly elevated left atrial pressure (Stage III-IV diastolic dysfunction). Right Ventricle: Normal right ventricular size. Normal right ventricular systolic function. Left Atrium: There is moderate enlargement of left atrium. Right Atrium: There is moderate enlargement of right atrium. Mitral Valve: Mild mitral annular calcification. Trace mitral regurgitation. Aortic Valve: No significant aortic stenosis or insufficiency. Aortic sclerosis without significant stenosis. Tricuspid Valve: Normal appearance of the tricuspid valve. Estimated peak PA systolic pressure 42 mmHg. There is mild tricuspid regurgitation. Pulmonic Valve: Normal pulmonic valve appearance. Pericardium: Trivial pericardial effusion. Pleural effusion seen. Aorta: Normal aortic root. IVC: Normal size and normal respiratory collapse consistent with normal right atrial pressure. Conclusions: Normal left ventricular systolic function. Normal left ventricular cavity size. Severe concentric left ventricular hypertrophy. Ejection fraction is visually estimated at 65 %. Tissue Doppler/Mitral Doppler indices are consistent with restrictive physiology with markedly elevated left atrial pressure (Stage III-IV diastolic dysfunction). Aortic sclerosis without significant stenosis. Estimated peak PA systolic pressure 42 mmHg. Normal size and normal respiratory collapse consistent with normal right atrial pressure. Electronically Signed By: Nabil Martínez 2018-06-21 09:00:59 PDT
--- NOTE | 2018-06-21 09:25 | PN ---
DATE: 06/21/2018 SUBJECTIVE: The patient is stable, no events overnight. The patient is scheduled for dialysis today . OBJECTIVE: VITAL SIGNS: Blood pressure is 165/94, respirations 18, pulse 62, temperature 97.4. HEENT: Head is normocephalic. NECK: Supple. HEART: Regular rate. LUNGS: Show diminished breath sounds at the base. ABDOMEN: Soft, nontender to palpation without rebound or guarding. EXTREMITIES: Negative for clubbing, cyanosis, no edema. DERMATOLOGIC: No rashes. MUSCULOSKELETAL: No joint effusion. NEUROLOGIC: No change in exam. MEDICATIONS: Reviewed. LABORATORY DATA: Reviewed. ASSESSMENT AND PLAN: 1. Acute hypoxemic respiratory failure etiology is secondary to volume overload, improving. Continu e intermittent hemodialysis. 2. Nonsustained ventricular tachycardia. Etiology is unclear. A 2D echo has been ordered by Cardio logy. Medications have been adjusted. We will follow up recommendations. 3. Anemia. Continue to monitor hemoglobin and hematocrit levels. We will give Epogen as needed. 4. Mineral bone disorder, monitor calcium and phosphorus levels. 5. Hypertension. Continue current blood pressure regimen. 6. Atrial fibrillation. Continue medical management. Continue Eliquis. 7. History of coronary artery disease. Continue current treatment plan. 8. History of cerebrovascular accident. Continue current treatment plan. 9. Diabetes. Continue current insulin regimen. 10. Dementia. Continue Exelon patch. 11. Gastrointestinal and deep vein thrombosis prophylaxis. Dictated By: STEVE REN DO NR/NTS Conf#: [id number] DID#: [id number] CC: SEVEN BIRD MD;*EndCC*
--- NOTE | 2018-06-21 09:49 | CONS ---
Assessment/Plan Assessment/Plan Hospital Course (Demo Recall) NSVT:23 beats 06/19/18. Likely NSVT vs afib with aberrancy. Trops negative and no evidence of ischemia. Electrolytes are ok. May have just been from electrolyte shifts during HD as timing roughly correlates. EF preserved. 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 No recurrence Acute on chronic diastolic heart failure: now resolved after extra HD Chronic afib: now on Eliquis. 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 In setting of afib diagnosis, likely was cardioembolic ESRD on HD CAD: unknown details DM HTN Dementia -ok for d/c -metoprolol 50mg PO BID instead of atenolol -amlodipine 5mg BID -lisinopril 20mg -lasix 40mg daily -lipitor 40mg -HD for volume management Consultation Date/Type/Reason Admit Date/Time Jun 19, 2018 at 05:45 Initial Consult Date 06/20/18 Type of Consult Cardiology Requesting Provider: STEVE REN DO Date/Time of Note DATE: 06/21/18 TIME: 09:47 24 HR Interval Summary Free Text/Dictation No further NSVT. No complaints. Intermittently confused. Exam/Review of Systems Exam Vitals Vital Signs Date Temp Pulse Resp B/P (MAP) Pulse Ox O2 O2 Flow FiO2 Time Delivery Rate 06/21/18 71 09:22 06/21/18 97.4 18 165/94 96 Room Air 07:24 (117) Intake and Output 06/20/18 06/20/18 06/21/18 1515:00 23:00 07:00 IntakeIntake Total 750 ml 400 ml BalanceBalance 750 ml 400 ml Constitutional: alert; No oriented Neck: supple; No jvd Respiratory: clear to auscultation; No crackles/rales Cardiovascular: regular rate and rhythm; No edema Gastrointestinal: soft, non-tender; No distended Neurological: nl mental status, nl speech Results Result Diagram: 06/20/18 0539 06/20/18 0539 Results 24hrs Laboratory Tests Test 06/20/18 11:15 3/12/19 17:32 06/20/18 21:58 06/21/18 08:28 Bedside Glucose 106 223 H 113 106 Medications Medication Current Medications Amlodipine Besylate (Norvasc) 5 mg BID PO Last administered on 06/20/18 21:59; Admin Dose 5 MG; Start 06/19/18 at 09:00 Furosemide (Lasix) 40 mg DAILY PO Last administered on 06/20/18 08:23; Admin Dose 40 MG; Start 06/19/18 at 09:00 Rivastigmine Tartrate (Exelon 4.6 Mg/ 24 Hr Patch) 1 patch DAILY TRANSDERM Last administered on 06/20/18 08:26; Admin Dose 1 PATCH; Start 06/19/18 at 09:00 Atorvastatin Calcium (Lipitor) 40 mg QHS PO Last administered on 06/20/18 22:00; Admin Dose 40 MG; Start 06/19/18 at 21:00 Apixaban (Eliquis) 5 mg BID PO Last administered on 06/20/18 22:00; Admin Dose 5 MG; Start 06/19/18 at 09:00 Hydralazine HCl (Apresoline) 25 mg Q8H PRN PO htn; Start 06/19/18 at 14:00 Lisinopril (Zestril) 20 mg DAILY PO Last administered on 06/20/18 08:23; Admin Dose 20 MG; Start 06/19/18 at 14:00 Ondansetron HCl (Zofran Inj) 4 mg Q6H PRN IV NAUSEA AND/OR VOMITING; Start 06/19/18 at 14:00 Insulin Aspart (Novolog Insulin Pen) NOVOLOG *MILD* ALGORITHM WITH MEALS BEDTIME SC Last administered on 06/20/18 17:57; Admin Dose 3 UNIT; Start 06/19/18 at 18:00 Miscellaneous Information 1 ea NOTE XX ; Start 06/19/18 at 14:00 Glucose (Glutose) 15 gm Q15M PRN PO DECREASED GLUCOSE; Start 06/19/18 at 14:00 Glucose (Glutose) 22.5 gm Q15M PRN PO DECREASED GLUCOSE; Start 06/19/18 at 14:00 Dextrose (D50w Syringe) 25 ml Q15M PRN IV DECREASED GLUCOSE; Start 06/19/18 at 14:00 Dextrose (D50w Syringe) 50 ml Q15M PRN IV DECREASED GLUCOSE; Start 06/19/18 at 14:00 Glucagon (Glucagen) 1 mg Q15M PRN IM DECREASED GLUCOSE; Start 06/19/18 at 14:00 Glucose (Glutose) 15 gm Q15M PRN BUCCAL DECREASED GLUCOSE; Start 06/19/18 at 14:00 Acetaminophen (Tylenol Tab) 1,000 mg Q6H PRN PO MILD PAIN(1-3)OR ELEVATED TEMP Last administered on 06/20/18at 02:00; Admin Dose 1,000 MG; Start 06/19/18 at 14:00 Melatonin (Melatonin) 5 mg HS PRN PO insomnia Last administered on 06/20/18 22:04; Admin Dose 5 MG; Start 06/19/18 at 14:00 Heparin Sodium (Porcine) (Heparin (1000 Units/ml)) 6,100 unit PRN CATHETER Last administered on 06/19/18at 17:51; Admin Dose 6,100 UNIT; Start 06/19/18 at 15:30 Metoprolol Tartrate (Lopressor) 50 mg BID PO Last administered on 06/20/18 22:00; Admin Dose 50 MG; Start 06/20/18 at 21:00 NABIL ALBRECHT Jun 21, 2018 09:49
[2018-06-21] MEDS: HEPARIN 1000 UNITS/ML 10 ML INJ CATHETER SCH (10:42)
[2018-06-21] MEDS: FUROSEMIDE 40 MG TAB PO SCH (12:52)
[2018-06-21] MEDS: APIXABAN 5 MG TABLET PO SCH (12:52)
== END 2018-06-21 13:30 | disposition home or self-care (01) ==
LOC: E/R 04:47 → 6WM 05:45
PROVIDERS: ADMIT Internal Medicine Nephrology; ATTEND Internal Medicine Nephrology
DX: I12.0 Hypertensive chronic kidney disease with stage 5 chronic kidney disease or end stage renal disease (principal); E11.22 Type 2 diabetes mellitus with diabetic chronic kidney disease; N18.6 End stage renal disease; Z99.2 Dependence on renal dialysis; D64.9 Anemia, unspecified; M89.8X9 Other specified disorders of bone, unspecified site; I48.2 Chronic atrial fibrillation; Z79.01 Long term (current) use of anticoagulants; I25.10 Atherosclerotic heart disease of native coronary artery without angina pectoris; F03.90 Unspecified dementia, unspecified severity, without behavioral disturbance, psychotic disturbance, mood disturbance, and anxiety; Z86.73 Personal history of transient ischemic attack (TIA), and cerebral infarction without residual deficits; Z23 Encounter for immunization
CPT/HCPCS: 71045; 80048; 80053; 82550; 82553; 82962; 83735; 83880; 84100; 84484; 85025; 86706; 87340; 90686; 90935; 93005; 93306; G0378; J1644; J1815; J1940; J2060; J2405; Q4081

== ENCOUNTER 2018-09-19 23:16 | Inpatient (IN) | payer MEDICARE, OTHER ==
[~2018-09-19] VITALS: Ht 152.4 cm; Wt 80.0 kg
[~2018-09-19 23:16] MED LIST changes: -ATEN50TA PO; -CLOP75TA19 PO; -ROSU10TA55 PO; +RSV10T PO
[2018-09-19 23:27] VITALS: Ht 152.4 cm; Wt 80.0 kg
[2018-09-20] VITALS (16 sets, daily range): BP systolic 126–198; BP diastolic 69–98; PULSE 60–97; RESP 18–22
--- NOTE | 2018-09-20 01:06 | ERD ---
ER Documentation Chief Complaint Chief Complaint [id number],from home, SOB, HD permacath on R femoral HPI This 78-year-old female brought in from home by ambulance with complaint of shortness of breath. Patient has a history of end-stage renal disease on dialysis. She got progressively more short of breath over the past 6 hours. No fevers no chills no nausea vomiting no chest pain. ROS All systems reviewed and are negative except as per history of present illness. Medications Home Meds Reported Medications Icosapent Ethyl (VASCEPA) 1 Gm Capsule, 1 GM PO DAILY, CAP 06/19/18 Rosuvastatin Calcium* (Crestor*) 10 Mg Tablet, 10 MG PO QHS, #30 TAB 05/24/18 Rivastigmine* Patch (Exelon* Patch) 4.6 Mg/24 Hr Patch.td24, 1 PATCH TD DAILY, PATCH 05/24/18 Nateglinide* (Nateglinide*) 120 Mg Tablet, 120 MG PO BID WITH MEALS, TAB 05/24/18 Furosemide* (Furosemide*) 40 Mg Tablet, 40 MG PO DAILY, TAB 05/24/18 Ergocalciferol (Vitamin D2) (VITAMIN D2) 50,000 Unit Capsule, 10290 UNIT PO Q MON, CAP 05/24/18 Amlodipine Besylate* (Norvasc*) 5 Mg Tablet, 5 MG PO BID, TAB 05/24/18 Allergies Allergies: Coded Allergies: chicken derived (Verified Allergy, Unknown, RASH, 06/19/18) PMhx/Soc History of Surgery: No Anesthesia Reaction: No Hx Neurological Disorder: No Hx Respiratory Disorders: No Hx Cardiac Disorders: Yes (HTN, STROKE 2018) Hx Psychiatric Problems: No Hx Miscellaneous Medical Probl: No Hx Alcohol Use: No Hx Substance Use: No Hx Tobacco Use: No Smoking Status: Never smoker Physical Exam Vitals Vital Signs Date Temp Pulse Resp B/P (MAP) Pulse Ox O2 O2 Flow FiO2 Time Delivery Rate 09/20/18 69 19 189/67 98 Room Air 00:15 (107) 09/19/18 Nasal 2 23:43 Cannula 09/19/18 99.6 68 19 167/71 95 23:27 (103) Physical Exam Const: No acute distress Head: Atraumatic Eyes: Normal Conjunctiva ENT: Normal External Ears, Nose and Mouth. Neck: Full range of motion. No meningismus. Resp: Scattered rales bilaterally Cardio: Regular rate and rhythm, no murmurs Abd: Soft, non tender, non distended. Normal bowel sounds Skin: No petechiae or rashes Back: No midline or flank tenderness Ext: No cyanosis, or edema Neur: Awake and alert Psych: Normal Mood and Affect Result Diagram: 09/19/18 2340 09/19/18 2340 Results 24 hrs Laboratory Tests Test 09/19/18 23:40 09/19/18 23:44 White Blood Count 6.5 10^3/ul Red Blood Count 3.80 10^6/ul Hemoglobin 11.1 g/dl Hematocrit 34.8 % Mean Corpuscular Volume 91.6 fl Mean Corpuscular Hemoglobin 29.2 pg Mean Corpuscular Hemoglobin Concent 31.9 g/dl Red Cell Distribution Width 14.3 % Platelet Count 234 10^3/UL Mean Platelet Volume 10.4 fl Immature Granulocytes % 0.300 % Neutrophils % 76.7 % Lymphocytes % 12.3 % Monocytes % 9.8 % Eosinophils % 0.6 % Basophils % 0.3 % Nucleated Red Blood Cells % 0.0 /100WBC Immature Granulocytes # 0.020 10^3/ul Neutrophils # 5.0 10^3/ul Lymphocytes # 0.8 10^3/ul Monocytes # 0.6 10^3/ul Eosinophils # 0.0 10^3/ul Basophils # 0.0 10^3/ul Nucleated Red Blood Cells # 0.0 10^3/ul Prothrombin Time 13.8 Sec Prothrombin Time Ratio 1.1 INR International Normalized Ratio 1.05 Activated Partial Thromboplast Time 30.3 Sec Sodium Level 134 mmol/L Potassium Level 4.3 mmol/L Chloride Level 97 mmol/L Carbon Dioxide Level 25 mmol/L Anion Gap 12 Blood Urea Nitrogen 51 mg/dl Creatinine 4.31 mg/dl Est Glomerular Filtrat Rate mL/min mL/min Glucose Level 149 mg/dl Calcium Level 10.5 mg/dl Total Bilirubin 0.3 mg/dl Direct Bilirubin 0.00 mg/dl Indirect Bilirubin 0.3 mg/dl Aspartate Amino Transf (AST/SGOT) 16 IU/L Alanine Aminotransferase (ALT/SGPT) 17 IU/L Alkaline Phosphatase 76 IU/L Troponin I < 0.012 ng/ml B-Type Natriuretic Peptide 01305 PG/ML Total Protein 7.8 g/dl Albumin 4.0 g/dl Globulin 3.80 g/dl Albumin/Globulin Ratio 1.05 POC Venous Lactate 1.3 mmol/L Procedures/MDM EKG: Rate/Rhythm: [Normal Sinus Rhythm] QRS, ST, T-waves: [No changes consistent w/ acute ischemia] Impression: [No evidence of ischemia or arrhythmia] Chest X-ray 1V Interpreted by me: Soft Tissue: No acute abnormalities Bones: No acute abnormalities Mediastinum/Cardiac Silhouette/Lungs: Increased interstitial fluid markings. Impression: Congestive heart failure Medical decision making: Patient's heart failure symptoms is concerning for acute decompensation and will require inpatient workup and monitoring. Further w/u for ischemia, arrhythmia, PE or dissection will be deferred to the inpatient team. Accepting Care Team: Current data and ongoing care discussed. Time: 1 AM Primary Provider: Dr. Ribeiro Consulting: Deferred to inpatient team Outstanding Data: none Departure Diagnosis: Primary Impression: Shortness of breath Condition: Serious ELSA SHI Sep 20, 2018 01:06
[2018-09-20] MEDS ORDERED: ONDANSETRON 4 MG INJ IV PRN (01:30)
[2018-09-20] MEDS ORDERED: ACETAMINOPHEN 325 MG TAB PO PRN (01:30)
[2018-09-20] MEDS ORDERED: ATEN50TA PO (03:30)
[2018-09-20] MEDS ORDERED: CLOP75TA28 PO (03:30)
[2018-09-20] MEDS ORDERED: ATENOLOL 50 MG TAB PO SCH ×2 (15:30→17:00)
[2018-09-20] MEDS ORDERED: CLOPIDOGREL 75 MG TAB PO SCH (15:30)
[2018-09-20] MEDS ORDERED: DEXTROSE 50% 50 ML SYRINGE IV PRN ×2 (16:30)
[2018-09-20] MEDS ORDERED: GLUCOSE GEL 15 GRAM TUBE PO PRN ×2 (16:30)
[2018-09-20] MEDS ORDERED: GLUCOSE GEL 15 GRAM TUBE BUCCAL PRN (16:30)
[2018-09-20] MEDS ORDERED: FAMOTIDINE 20 MG TAB PO ONE (16:30)
[2018-09-20] MEDS ORDERED: GLUCAGON 1 MG INJ IM PRN (16:30)
[2018-09-20] MEDS: INSULIN ASPART [NOVOLOG] 3 ML PEN SC SCH ×2 (18:00→20:28)
--- NOTE | 2018-09-20 19:14 | HP ---
DATE OF ADMISSION: 09/20/2018 CHIEF COMPLAINT: Shortness of breath. HISTORY OF PRESENT ILLNESS: This is a 78-year-old female with a past medical history of end-stage re nal disease, history of AFib, history of diabetes, history of hypertension, history of CVA, history o f dementia ,history of mineral bone disorder, who presented to [facility] with shor tness of breath. The patient was noted to have increased shortness of breath over the last 24 hours. As a result, she was brought into the emergency room. Upon arrival, the patient had received a yan st x-ray which showed findings of increased perihilar and bronchial interstitial markings in both milena g bases with infiltrates. The patient in the emergency room was given diuretic therapy and nebulizer s. Upon my evaluation of the patient at this time, she is currently short of breath and tachypneic. The re is no report of any hemoptysis, hematemesis or hematochezia. Per patient's family, patient was al so noted to be having foul-smelling urine. PAST MEDICAL HISTORY: As stated above, history of end-stage renal disease, history of anemia, histor y of AFib, history of CVA, history of diabetes, hypertension, history of coronary artery disease. PAST SURGICAL HISTORY: Status post PermCath placement. ALLERGIES: NO KNOWN DRUG ALLERGIES. FAMILY HISTORY: No family history of kidney disease. SOCIAL HISTORY: Does not drink, smoke or do drugs. MEDICATIONS: Have been reviewed. REVIEW OF SYSTEMS: A 14-point review of systems was conducted. Pertinent positives are stated in HP I, otherwise negative. PHYSICAL EXAMINATION: VITAL SIGNS: Blood pressure is 190/93, respirations 16, pulse 89, temperature 98.6. HEENT: Head is normocephalic. Pupils are reactive to light. NECK: Supple. HEART: Irregularly irregular. LUNGS: Show diminished breath sounds at base. Positive crackles. ABDOMEN: Soft, nontender to palpation. EXTREMITIES: Negative for clubbing, cyanosis. Positive edema. DERMATOLOGIC: No rashes. MUSCULOSKELETAL: The patient has noted Juan catheter in right groin. NEUROLOGIC: Limited exam, but no focal deficits. LABORATORY DATA: Reviewed. MEDICATIONS: Have been reviewed. IMAGING STUDIES: Have been reviewed. ASSESSMENT AND PLAN: This is a 78-year-old female who presents with: 1. Acute hypoxic respiratory failure. Etiology is secondary to volume overload due to end-stage louise al disease. Our plan is for urgent hemodialysis. The patient will be dialyzed with goal ultrafiltra tion approximately of 2 to 3 liters. We will continue nebulizer, supplemental oxygen and monitor cornelius sely. Consider pulmonary evaluation. 2. End-stage renal disease. The patient has a right femoral PermCath. Plan for daily dialysis for solute clearance and volume removal. Plan for urgent dialysis today. 3. Hyponatremia secondary to end-stage renal disease. The patient will be dialyzed on 140-sodium ba . 4. Anemia. Hemoglobin levels are stable. Continue to monitor. We will give Epogen as needed. 5. Mineral bone disorder. Monitor calcium and phosphorus levels. 6. Hypertension in part due to increased intravascular volume. We will continue ultrafiltration alfonso lysis. Continue current blood pressure regimen. 7. Atrial fibrillation. Continue medical management. Continue metoprolol. Continue Eliquis. 8. History of coronary artery disease. Continue medical management. 9. History of cerebrovascular accident. Continue current treatment plan. 10. Diabetes. The patient will be placed on Accu-Cheks with mild insulin sliding scale. 11. Acute encephalopathy on dementia. Etiology is toxic metabolic. Continue to monitor. 12. Gastrointestinal and deep venous thrombosis prophylaxis. Please note, I spent an additional 30 minutes in [id number] time with the patient as well as the rhys grant's son discussing code status. The patient is full code. Dictated By: STEVE REN DO NR/NTS Conf#: [id number] DID#: [id number] CC: QUAN THORNE MD;*EndCC*
[2018-09-20] MEDS: LISINOPRIL 20 MG TAB PO SCH (20:23)
[2018-09-20] MEDS: ATORVASTATIN 40 MG TAB PO SCH (20:23)
[2018-09-20] MEDS: AMLODIPINE 5 MG TAB PO SCH (20:24)
[2018-09-20] MEDS: METOPROLOL 50 MG TAB PO SCH (20:24)
[2018-09-20] MEDS ORDERED: APIXABAN 5 MG TABLET PO SCH (21:00)
[2018-09-20] MEDS ORDERED: NON-FORMULARY/PATIENT OWN MED (Rosuvastatin Calcium* (Crestor*) 10 MG) PO SCH (21:00)
[2018-09-20] MEDS ORDERED: HEPARIN 1000 UNITS/ML 10 ML INJ CATHETER ONE (22:00)
[2018-09-21] VITALS (32 sets, daily range): BP systolic 87–189; BP diastolic 47–91; PULSE 61–99; RESP 18–22
[2018-09-21] MEDS: ACCU-CHEK XX SCH (02:00)
[2018-09-21] MEDS ORDERED: LORAZEPAM 2 MG INJ IV ONE (03:00)
[2018-09-21] MEDS: ACETAMINOPHEN 325 MG TAB PO PRN (05:23)
[2018-09-21] MEDS: INSULIN ASPART [NOVOLOG] 3 ML PEN SC SCH ×4 (08:00→21:00)
--- NOTE | 2018-09-21 09:01 | CONS ---
Assessment/Plan Assessment/Plan Hospital Course (Demo Recall) Acute on chronic diastolic heart failure: EF preserved as of 06/2018. 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 Now improved after HD Fever: possible UTI. Workup pending Chronic afib: on Eliquis. Rates controlled H/o CVA: 01/26 s/p lytics and transferred to [facility] for thrombectomy. In setting of afib diagnosis, likely was cardioembolic ESRD on HD CAD: unknown details DM HTN Dementia -fever/infectious workup per PMD -metoprolol 50mg PO BID -amlodipine 5mg BID -lisinopril 20mg BID -lipitor 40mg -HD for volume management Consultation Date/Type/Reason Admit Date/Time Sep 20, 2018 at 01:09 Date of Consultation: Sep 21, 2018 Type of Consult Cardiology Reason for Consultation CHF Requesting Provider: STEVE REN DO Date/Time of Note DATE: 09/21/18 TIME: 09:00 Hx of Present Illness 78 yo F with a h/o dementia, CVA 01/26 s/p lytics and transferred to [facility] for thrombectomy, ESRD on HD, chronic afib on Eliquis, chronic diastolic CHF (EF preserved 06/2018), CAD, DM, HTN, who presented with dyspnea. She was found to have decompensated CHF now s/p HD last night with improvement. She also was febrile last night. Family had noted foul smelling urine. Workup and treatment is in progress. She is demented and unable to provide history but denies chest pain or SOB. She appears comfortable. limited but per HPI Past Medical History per HPI Home Meds Reported Medications Clopidogrel Bisulfate (Clopidogrel) 75 Mg Tablet, 75 MG PO DAILY TAKE 1 TABLET BY MOUTH ONCE DAILY 09/20/18 Atenolol* (Atenolol*) 50 Mg Tablet, 50 MG PO DAILY for 30 Days, #30 09/20/18 Rosuvastatin Calcium* (Crestor*) 10 Mg Tablet, 10 MG PO QHS, #30 TAB 05/24/18 Rivastigmine* Patch (Exelon* Patch) 4.6 Mg/24 Hr Patch.td24, 1 PATCH TD DAILY, PATCH 05/24/18 Amlodipine Besylate* (Norvasc*) 5 Mg Tablet, 5 MG PO BID, TAB 05/24/18 Discontinued Reported Medications Icosapent Ethyl (VASCEPA) 1 Gm Capsule, 1 GM PO DAILY, CAP 06/19/18 Nateglinide* (Nateglinide*) 120 Mg Tablet, 120 MG PO BID WITH MEALS, TAB 05/24/18 Furosemide* (Furosemide*) 40 Mg Tablet, 40 MG PO DAILY, TAB 05/24/18 Ergocalciferol (Vitamin D2) (VITAMIN D2) 50,000 Unit Capsule, 04055 UNIT PO Q MON, CAP 05/24/18 Medications Current Medications Amlodipine Besylate (Norvasc) 5 mg BID PO Last administered on 09/20/18at 20:24; Admin Dose 5 MG; Start 09/20/18 at 21:00 Atorvastatin Calcium (Lipitor) 40 mg DAILY@21 PO Last administered on 09/20/18at 20:23; Admin Dose 40 MG; Start 09/20/18 at 21:00 Lisinopril (Zestril) 20 mg BID PO Last administered on 09/20/18at 20:23; Admin Dose 20 MG; Start 09/20/18 at 21:00 Metoprolol Tartrate (Lopressor) 50 mg BID PO Last administered on 09/20/18at 20:24; Admin Dose 50 MG; Start 09/20/18 at 21:00 Diagnostic Test (Pha) (Accu-Chek) 1 ea 02 XX ; Start 09/21/18 at 02:00 Insulin Aspart (Novolog Insulin Pen) NOVOLOG *MILD* ALGORITHM WITH MEALS BEDTIME SC ; Start 09/20/18 at 18:00 Miscellaneous Information 1 ea NOTE XX ; Start 09/20/18 at 16:30 Glucose (Glutose) 15 gm Q15M PRN PO DECREASED GLUCOSE; Start 09/20/18 at 16:30 Glucose (Glutose) 22.5 gm Q15M PRN PO DECREASED GLUCOSE; Start 09/20/18 at 16 :30 Dextrose (D50w Syringe) 25 ml Q15M PRN IV DECREASED GLUCOSE; Start 09/20/18 at 16:30 Dextrose (D50w Syringe) 50 ml Q15M PRN IV DECREASED GLUCOSE; Start 09/20/18 at 16:30 Glucagon (Glucagen) 1 mg Q15M PRN IM DECREASED GLUCOSE; Start 09/20/18 at 16:30 Glucose (Glutose) 15 gm Q15M PRN BUCCAL DECREASED GLUCOSE; Start 09/20/18 at 16:30 Acetaminophen (Tylenol Tab) 650 mg Q6H PRN PO MILD PAIN(1-3)OR ELEVATED TEMP Last administered on 09/21/18at 05:23; Admin Dose 650 MG; Start 09/21/18 at 05:30 Allergies: Coded Allergies: chicken derived (Verified Allergy, Unknown, RASH, 06/19/18) Social History Smoking Status: Never smoker Exam/Review of Systems Vital Signs Vitals Vital Signs Date Temp Pulse Resp B/P (MAP) Pulse Ox O2 O2 Flow FiO2 Time Delivery Rate 09/21/18 Nasal 3.0 08:05 Cannula 09/21/18 98.9 77 22 132/62 92 07:17 (85) Intake and Output 09/20/18 09/20/18 09/21/18 1515:00 23:00 07:00 IntakeIntake Total 200 ml OutputOutput Total 2900 ml BalanceBalance 200 ml -2900 ml Exam Constitutional: alert; No oriented Psych: no complaints, nl mood/affect, confusion Head: normocephalic, atraumatic Neck: No jvd Respiratory: crackles/rales (to mid lungs); No clear to auscultation Cardiovascular: systolic murmur (2/6 CURT); No regular rate and rhythm, No edema Gastrointestinal: soft, non-tender; No distended Neurological: nl mental status, nl speech Labs Result Diagram: 09/21/18 0547 09/21/18 0547 Results 24hrs Laboratory Tests Test 09/20/18 18:18 09/20/18 20:25 09/21/18 05:47 09/21/18 08:17 Bedside Glucose 101 140 126 White Blood Count 5.8 Red Blood Count 3.84 L Hemoglobin 11.7 L Hematocrit 35.6 L Mean Corpuscular 92.7 Volume Mean Corpuscular 30.5 Hemoglobin Mean Corpuscular 32.9 Hemoglobin Concent Red Cell 14.1 Distribution Width Platelet Count 228 Mean Platelet Volume 10.6 H Immature 0.500 H Granulocytes % Neutrophils % 84.8 H Lymphocytes % 8.3 L Monocytes % 6.1 Eosinophils % 0.0 Basophils % 0.3 Nucleated Red Blood 0.0 Cells % Immature 0.030 Granulocytes # Neutrophils # 4.9 Lymphocytes # 0.5 L Monocytes # 0.4 Eosinophils # 0.0 Basophils # 0.0 Nucleated Red Blood 0.0 Cells # Sodium Level 137 Potassium Level 4.5 Chloride Level 100 Carbon Dioxide Level 25 Anion Gap 12 Blood Urea Nitrogen 27 #H Creatinine 2.75 #H Est Glomerular Filtrat Rate mL/min Glucose Level 157 Calcium Level 10.2 Phosphorus Level 4.5 Magnesium Level 2.0 Medications Medications Current Medications Amlodipine Besylate (Norvasc) 5 mg BID PO Last administered on 09/20/18at 20:24; Admin Dose 5 MG; Start 09/20/18 at 21:00 Atorvastatin Calcium (Lipitor) 40 mg DAILY@21 PO Last administered on 09/20/18at 20:23; Admin Dose 40 MG; Start 09/20/18 at 21:00 Lisinopril (Zestril) 20 mg BID PO Last administered on 09/20/18at 20:23; Admin Dose 20 MG; Start 09/20/18 at 21:00 Metoprolol Tartrate (Lopressor) 50 mg BID PO Last administered on 09/20/18at 20:24; Admin Dose 50 MG; Start 09/20/18 at 21:00 Diagnostic Test (Pha) (Accu-Chek) 1 ea 02 XX ; Start 09/21/18 at 02:00 Insulin Aspart (Novolog Insulin Pen) NOVOLOG *MILD* ALGORITHM WITH MEALS BEDTIME SC ; Start 09/20/18 at 18:00 Miscellaneous Information 1 ea NOTE XX ; Start 09/20/18 at 16:30 Glucose (Glutose) 15 gm Q15M PRN PO DECREASED GLUCOSE; Start 09/20/18 at 16:30 Glucose (Glutose) 22.5 gm Q15M PRN PO DECREASED GLUCOSE; Start 09/20/18 at 16:30 Dextrose (D50w Syringe) 25 ml Q15M PRN IV DECREASED GLUCOSE; Start 09/20/18 at 16:30 Dextrose (D50w Syringe) 50 ml Q15M PRN IV DECREASED GLUCOSE; Start 09/20/18 at 16:30 Glucagon (Glucagen) 1 mg Q15M PRN IM DECREASED GLUCOSE; Start 09/20/18 at 16:30 Glucose (Glutose) 15 gm Q15M PRN BUCCAL DECREASED GLUCOSE; Start 09/20/18 at 16:30 Acetaminophen (Tylenol Tab) 650 mg Q6H PRN PO MILD PAIN(1-3)OR ELEVATED TEMP Last administered on 09/21/18at 05:23; Admin Dose 650 MG; Start 09/21/18 at 05:30 NABIL ALBRECHT Sep 21, 2018 09:01
[2018-09-21] MEDS: AMLODIPINE 5 MG TAB PO SCH ×2 (09:53→21:59)
[2018-09-21] MEDS: LISINOPRIL 20 MG TAB PO SCH ×2 (09:53→21:59)
[2018-09-21] MEDS: METOPROLOL 50 MG TAB PO SCH ×2 (09:53→21:59)
--- NOTE | 2018-09-21 10:07 | PN ---
DATE: 09/21/2018 SUBJECTIVE: The patient noted to be febrile overnight. No other events noted. No hemoptysis, hemat emesis, hematochezia. The patient did have hemodialysis yesterday, tolerated it well. OBJECTIVE: VITAL SIGNS: Blood pressure is 132/62, respirations 22, pulse 77, temperature 98.9. HEENT: Head is normocephalic. NECK: Supple. HEART: Regular rate. LUNGS: Show diminished breath sounds at the base. ABDOMEN: Soft, nontender to palpation without rebound or guarding. EXTREMITIES: Negative for clubbing, cyanosis, no edema. DERMATOLOGIC: No rashes. MUSCULOSKELETAL: No joint effusions. NEUROLOGIC: No change in exam. MEDICATIONS: The patient's medications have been reviewed. LABORATORY DATA: Has been reviewed. ASSESSMENT AND PLAN: 1. Acute hypoxic respiratory failure. Etiology is secondary to volume overload due to end-stage louise al disease. The patient had urgent dialysis yesterday, tolerated it well with approximately 3 liters removed. Will plan for dialysis again today. 2. End-stage renal disease. The patient's access is right femoral cath. Plan for dialysis today fo r solute clearance and volume removal. 3. Hypernatremia secondary to end-stage renal disease, improved. 4. Anemia. Monitor H and H levels. Will give Epogen as needed. 5. Mineral bone disorder, monitor calcium and phosphorus levels. 6. Hypertension. Continue current blood pressure regimen. Continue ultrafiltration dialysis. 7. SIRS. The patient was febrile with noted foul-smelling urine. We will follow up with a urine cu lture, UA with microanalysis. The patient will be started on empiric antibiotic therapy and will mon itor closely. Consider Infectious Disease evaluation. 8. Atrial fibrillation, currently rate controlled. Continue metoprolol and Eliquis. 9. Coronary artery disease. Continue medical management. 10. History of cerebrovascular, possible cardioembolic event. Continue current anticoagulation. 11. Diabetes. Continue Accu-Cheks, insulin sliding scale. 12. Encephalopathy on dementia, etiology is likely toxic metabolic. Continue to monitor. 14. GI and DVT prophylaxis. Dictated By: STEVE REN DO NR/NTS Conf#: [id number] DID#: [id number] CC: QUAN THORNE MD;*EndCC*
[2018-09-21] MEDS: CEFEPIME 1GM/50 ML (PMX) 50 ML IVPB SCH (11:16)
[2018-09-21] MEDS ORDERED: HEPARIN 1000 UNITS/ML 10 ML INJ CATHETER PRN (21:30)
[2018-09-21] MEDS: ATORVASTATIN 40 MG TAB PO SCH (21:59)
[2018-09-22] VITALS (13 sets, daily range): BP systolic 121–143; BP diastolic 45–63; PULSE 69–89; RESP 18–24
[2018-09-22] MEDS: ACCU-CHEK XX SCH (02:00)
[2018-09-22] MEDS ORDERED: ALBUTEROL 0.5% (NEB) 2.5 MG/0.5 ML AMP ONE (02:25)
[2018-09-22] MEDS: ALBUTEROL 0.083% (NEB) 2.5 MG/3 ML AMP HHN PRN (02:37)
[2018-09-22] MEDS: INSULIN ASPART [NOVOLOG] 3 ML PEN SC SCH ×4 (07:42→20:22)
[2018-09-22] MEDS: LISINOPRIL 20 MG TAB PO SCH ×3 (07:43→21:00)
[2018-09-22] MEDS: METOPROLOL 50 MG TAB PO SCH ×3 (07:43→21:00)
[2018-09-22] MEDS: AMLODIPINE 5 MG TAB PO SCH ×3 (07:43→21:00)
[2018-09-22] MEDS: CEFEPIME 1GM/50 ML (PMX) 50 ML IVPB SCH (07:43)
--- NOTE | 2018-09-22 09:01 | PN ---
DATE: 09/22/2018 SUBJECTIVE: The patient had hemodialysis yesterday, tolerated well, over approximately 1.3 liters re moved. No other events noted overnight. The patient has remained afebrile. OBJECTIVE: VITAL SIGNS: Blood pressure is 136/61, respirations 22, pulse 79, temperature 98.4. HEENT: Head is normocephalic. NECK: Supple. HEART: Regular rate. LUNGS: Show diminished breath sounds at the base. ABDOMEN: Soft, nontender to palpation without rebound or guarding. EXTREMITIES: Negative for clubbing, cyanosis, no edema. DERMATOLOGIC: No rashes. MUSCULOSKELETAL: No joint effusion. NEUROLOGIC: No change in exam. MEDICATIONS: The patient's medications have been reviewed. LABORATORY DATA: Reviewed. ASSESSMENT AND PLAN: 1. Acute hypoxemic respiratory failure, etiology is secondary to volume overload. The patient is cl inically improving. Continue ultrafiltration with dialysis. Wean off oxygen as tolerated. 2. Fever, systemic inflammatory response syndrome. Etiology is unclear, possible viral versus urina ry tract infection. The patient's urine culture is pending. Procalcitonin blood cultures levels are pending. The patient was started on empiric cefepime. We will follow up with infectious disease fo r further recommendation. 3. End-stage renal disease. Plan is for hemodialysis again today for solute clearance and volume re moval. 4. Anemia. Monitor hemoglobin and hematocrit levels. We will give Epogen as needed. 5. Mineral bone disorder. Monitor calcium and phosphorus levels. 6. Hypertension. Continue current blood pressure regimen. Continue ultrafiltration with dialysis. 7. Atrial fibrillation, rate controlled. Continue metoprolol and Eliquis. 8. Coronary artery disease, continue medical management. 9. History of cerebrovascular accident. Continue current medical management. 10. Diabetes. Continue Accu-Cheks and insulin sliding scale. 11. Acute encephalopathy and dementia, etiology is toxic metabolic. Continue to monitor. 12. Gastrointestinal and deep vein thrombosis prophylaxis. Dictated By: STEVE REN DO NR/NTS Conf#: [id number] DID#: [id number] CC: QUAN THORNE MD;*EndCC*
[2018-09-22] MEDS ORDERED: ALTEPLASE (CATHFLO) 2 MG INJ CATHETER STA (11:52)
--- NOTE | 2018-09-22 12:18 | CONS ---
Assessment/Plan Assessment/Plan Hospital Course (Demo Recall) Acute on chronic diastolic heart failure: EF preserved as of 06/2018. 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 Now improved after HD Fever: possible UTI vs PNA. Cultures pending Chronic afib: on Eliquis. Rates controlled H/o CVA: 01/26 s/p lytics and transferred to [facility] for thrombectomy. In setting of afib diagnosis, likely was cardioembolic ESRD on HD CAD: unknown details DM HTN Dementia -restart eliquis 2.5mg BID -metoprolol 50mg PO BID -amlodipine 5mg BID -lisinopril 20mg BID -lipitor 40mg -HD for volume management Consultation Date/Type/Reason Admit Date/Time Sep 21, 2018 at 09:10 Initial Consult Date 09/21/18 Type of Consult Cardiology Requesting Provider: STEVE REN DO Date/Time of Note DATE: 09/22/18 TIME: 12:14 24 HR Interval Summary Free Text/Dictation No further fevers. Receiving HD Exam/Review of Systems Vital Signs Vitals Vital Signs Date Temp Pulse Resp B/P (MAP) Pulse Ox O2 O2 Flow FiO2 Time Delivery Rate 09/22/18 97.9 72 22 124/57 91 Nasal 11:15 (79) Cannula 09/22/18 3.0 08:00 09/22/18 31 02:54 Intake and Output 09/21/18 09/21/18 09/22/18 1515:00 23:00 07:00 IntakeIntake Total 300 ml OutputOutput Total 2100 ml 50 ml BalanceBalance -1800 ml -50 ml Exam Constitutional: alert; No oriented Psych: confusion Head: normocephalic, atraumatic Neck: No jvd Respiratory: diminished breath sounds; No clear to auscultation Cardiovascular: systolic murmur (2/6 CURT); No regular rate and rhythm, No edema Gastrointestinal: soft, non-tender; No distended Neurological: nl mental status, nl speech Labs Result Diagram: 09/22/18 0545 09/22/18 0545 Results 24hrs Laboratory Tests Test 09/21/18 12:38 09/21/18 16:48 09/21/18 21:31 09/22/18 02:00 Bedside Glucose 144 123 95 Urine Color ARTIS Urine Clarity CLOUDY A Urine pH 6.0 Urine Specific 1.020 [place] Urine Ketones TRACE A Urine Nitrite NEGATIVE Urine Bilirubin NEGATIVE Urine Urobilinogen NEGATIVE Urine Leukocyte NEGATIVE Esterase Urine Microscopic 1 RBC Urine Microscopic 4 WBC Urine Squamous FEW Epithelial Cells Urine Bacteria FEW A Urine Hemoglobin NEGATIVE Urine Glucose 1+ H Urine Total Protein 3+ H Test 09/22/18 05:45 09/22/18 07:42 09/22/18 12:11 White Blood Count 4.1 #L Red Blood Count 4.25 Hemoglobin 12.5 Hematocrit 38.9 Mean Corpuscular 91.5 Volume Mean Corpuscular 29.4 Hemoglobin Mean Corpuscular 32.1 Hemoglobin Concent Red Cell 14.3 Distribution Width Platelet Count 230 Mean Platelet Volume 10.3 Immature 0.200 Granulocytes % Neutrophils % 61.5 Lymphocytes % 22.7 Monocytes % 15.2 H Eosinophils % 0.2 Basophils % 0.2 Nucleated Red Blood 0.0 Cells % Immature 0.010 Granulocytes # Neutrophils # 2.5 Lymphocytes # 0.9 Monocytes # 0.6 Eosinophils # 0.0 Basophils # 0.0 Nucleated Red Blood 0.0 Cells # Sodium Level 139 Potassium Level 4.1 Chloride Level 99 Carbon Dioxide Level 26 Anion Gap 14 H Blood Urea Nitrogen 30 H Creatinine 2.89 H Est Glomerular Filtrat Rate mL/min Glucose Level 131 Calcium Level 10.8 H Phosphorus Level 5.6 H Magnesium Level 2.1 Procalcitonin 0.56 H Bedside Glucose 128 115 Medications Medications Current Medications Amlodipine Besylate (Norvasc) 5 mg BID PO Last administered on 09/21/18at 21:59; Admin Dose 5 MG; Start 09/20/18 at 21:00 Atorvastatin Calcium (Lipitor) 40 mg DAILY@21 PO Last administered on 09/21/18at 21:59; Admin Dose 40 MG; Start 09/20/18 at 21:00 Lisinopril (Zestril) 20 mg BID PO Last administered on 09/21/18at 21:59; Admin Dose 20 MG; Start 09/20/18 at 21:00 Metoprolol Tartrate (Lopressor) 50 mg BID PO Last administered on 09/21/18at 21:59; Admin Dose 50 MG; Start 09/20/18 at 21:00 Diagnostic Test (Pha) (Accu-Chek) 1 ea 02 XX ; Start 09/21/18 at 02:00 Insulin Aspart (Novolog Insulin Pen) NOVOLOG *MILD* ALGORITHM WITH MEALS BEDTIME SC Last administered on 09/21/18at 12:45; Admin Dose 1 UNIT; Start 09/20/18 at 18:00 Miscellaneous Information 1 ea NOTE XX ; Start 09/20/18 at 16:30 Glucose (Glutose) 15 gm Q15M PRN PO DECREASED GLUCOSE; Start 09/20/18 at 16:30 Glucose (Glutose) 22.5 gm Q15M PRN PO DECREASED GLUCOSE; Start 09/20/18 at 16:30 Dextrose (D50w Syringe) 25 ml Q15M PRN IV DECREASED GLUCOSE; Start 09/20/18 at 16:30 Dextrose (D50w Syringe) 50 ml Q15M PRN IV DECREASED GLUCOSE; Start 09/20/18 at 16:30 Glucagon (Glucagen) 1 mg Q15M PRN IM DECREASED GLUCOSE; Start 09/20/18 at 16:30 Glucose (Glutose) 15 gm Q15M PRN BUCCAL DECREASED GLUCOSE; Start 09/20/18 at 16:30 Acetaminophen (Tylenol Tab) 650 mg Q6H PRN PO MILD PAIN(1-3)OR ELEVATED TEMP Last administered on 09/21/18at 05:23; Admin Dose 650 MG; Start 09/21/18 at 05:30 Cefepime HCl 50 ml @ 100 mls/hr DAILY IVPB Last administered on 09/22/18at 07:43; Admin Dose 100 MLS/HR; Start 09/21/18 at 09:30 Heparin Sodium (Porcine) (Heparin (1000 Units/ml)) 6,100 unit AFTER DIALYSIS PRN CATHETER NOTE; Start 09/21/18 at 21:30 Albuterol (Proventil 0.083% (Neb)) 2.5 mg Q6H RESP THERAPY PRN HHN SHORTNESS OF BREATH Last administered on 09/22/18at 02:37; Admin Dose 2.5 MG; Start 09/22/18 at 02:00 Apixaban (Eliquis) 2.5 mg BID PO ; Start 09/22/18 at 21:00 NABIL ALBRECHT Sep 22, 2018 12:18
--- NOTE | 2018-09-22 12:46 | CONS ---
DATE OF ADMISSION: 09/21/2018 DATE OF CONSULTATION: 09/22/2018 TYPE OF CONSULTATION: Infectious disease. REASON FOR CONSULTATION: Antibiotic management. HISTORY OF PRESENT ILLNESS: Allen Martel is a 78-year-old female who was brought in from home girish rt of breath. The patient has end-stage renal disease on hemodialysis with a Perm-A-Cath in the righ t femoral artery. She got progressively more short of breath over the past 6 hours. No fever, chill s, nausea, vomiting, who was brought in by ambulance from home with shortness of breath. She has a h istory of end-stage renal disease on dialysis. She has a Perm-A-Cath in the right femoral area. The re is no fever, chills, nausea or vomiting. Her past problems include hypertension and stroke in 201 8. PAST MEDICAL HISTORY: Essentially as outlined. FAMILY HISTORY: Noncontributory. SOCIAL HISTORY: She does not smoke, drink or abuse drugs. ALLERGIES: None to penicillin, sulfa or foods. MEDICATIONS: Per chart. REVIEW OF SYSTEMS: As per HPI. LABORATORY DATA: On admission, her white count was 6.5, H and H of 11.1 and 34.8, platelet count 234 ,000. BUN and creatinine 51/4.31, glucose random 149. She has 77% neutrophils. PAST MEDICAL HISTORY: As outlined. PHYSICAL EXAMINATION: GENERAL: She is awake, responsive, in no acute distress. VITAL SIGNS: Stable. She is afebrile. SKIN: Without generalized rash. HEENT: Within normal limits. NECK: Supple. LYMPH NODES: None palpable. CHEST: Decreased breath sounds at the bases. HEART: Without murmur or gallop. ABDOMEN: Soft, nontender, without organosplenomegaly or masses. EXTREMITIES: Without cyanosis, clubbing, or edema. RECTAL AND GENITAL: Deferred. NEUROLOGICAL: No focal neurological abnormality. A chest x-ray shows increased interstitial marking s and congestive heart failure. The patient has symptoms of heart failure. She was seen by Dr. Ribeiro in pulmonary consultation. X -ray showing increased perihilar bronchial interstitial markings in both lungs with infiltrates. She was given diuretic therapy and nebulizers. She is short of breath on admission. She had acute hypo xemic respiratory failure. She was dialyzed. She also has atrial fibrillation, history of cerebrova scular accident. She has acute encephalopathy bordering on dementia. Currently, she received dialys is. She is afebrile. She has fevers, systemic and inflammatory response syndrome. This could be ur inary tract infection and cultures are pending. Could be viral, could be pneumonia. She was started on cefepime. She has end-stage renal disease as we know. Her urine culture so far is negative. Wh ite count today is 4.1, and she is afebrile. We also have to be concerned about the possibility of ela Norris being infected and so will observe carefully. Currently on cefepime. I will dictate my findings to Dr. Ribeiro. Dictated By: CEDRIC CEDEÑO MD MARKO/NTS Conf#: [id number] DID#: [id number] CC: QUAN THORNE MD;*EndCC*
[2018-09-22] MEDS: NYSTATIN 30 GM POWDER BTL TOP SCH ×2 (15:40→20:24)
[2018-09-22] MEDS: APIXABAN 5 MG TABLET PO SCH (20:23)
[2018-09-22] MEDS: ATORVASTATIN 40 MG TAB PO SCH (20:23)
[2018-09-23] VITALS (27 sets, daily range): BP systolic 106–146; BP diastolic 48–66; PULSE 60–88; RESP 18–22
[2018-09-23] MEDS: ACCU-CHEK XX SCH ×2 (02:00→23:12)
[2018-09-23] MEDS: INSULIN ASPART [NOVOLOG] 3 ML PEN SC SCH ×4 (08:00→20:59)
[2018-09-23] MEDS: CEFEPIME 1GM/50 ML (PMX) 50 ML IVPB SCH (08:10)
[2018-09-23] MEDS: AMLODIPINE 5 MG TAB PO SCH ×2 (08:18→20:56)
[2018-09-23] MEDS: METOPROLOL 50 MG TAB PO SCH ×2 (08:18→20:56)
[2018-09-23] MEDS: LISINOPRIL 20 MG TAB PO SCH ×2 (08:18→20:56)
[2018-09-23] MEDS: APIXABAN 5 MG TABLET PO SCH ×2 (08:18→20:55)
[2018-09-23] MEDS: NYSTATIN 30 GM POWDER BTL TOP SCH ×3 (08:19→23:13)
--- NOTE | 2018-09-23 09:51 | CONS ---
Assessment/Plan Assessment/Plan Hospital Course (Demo Recall) Acute on chronic diastolic heart failure: EF preserved as of 06/2018. 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 Now improved after HD Fever: possible UTI vs PNA. Cultures negative Chronic afib: on Eliquis. Rates controlled H/o CVA: 01/26 s/p lytics and transferred to [facility] for thrombectomy. In setting of afib diagnosis, likely was cardioembolic ESRD on HD CAD: unknown details DM HTN Dementia -eliquis 2.5mg BID -metoprolol 50mg PO BID -amlodipine 5mg BID -lisinopril 20mg BID -lipitor 40mg -HD for volume management Consultation Date/Type/Reason Admit Date/Time Sep 21, 2018 at 09:10 Initial Consult Date 09/21/18 Type of Consult Cardiology Requesting Provider: STEVE REN DO Date/Time of Note DATE: 09/23/18 TIME: 09:50 24 HR Interval Summary Free Text/Dictation Lethargic this am. Receiving HD Exam/Review of Systems Vital Signs Vitals Vital Signs Date Temp Pulse Resp B/P (MAP) Pulse Ox O2 O2 Flow FiO2 Time Delivery Rate 09/23/18 74 08:01 09/23/18 98.5 20 146/65 99 Nasal 07:30 (92) Cannula 09/23/18 3.0 04:36 09/22/18 31 02:54 Intake and Output 09/22/18 09/22/18 09/23/18 1515:00 23:00 07:00 IntakeIntake Total 200 ml BalanceBalance 200 ml Exam Constitutional: No alert Neck: No jvd Respiratory: diminished breath sounds; No clear to auscultation Cardiovascular: regular rate and rhythm; No edema Gastrointestinal: soft, non-tender; No distended Neurological: No nl mental status, No nl speech Labs Result Diagram: 09/22/18 0545 09/22/18 0545 Results 24hrs Laboratory Tests Test 09/22/18 12:11 09/22/18 16:42 09/22/18 20:22 09/23/18 08:08 Bedside Glucose 115 109 130 106 Medications Medications Current Medications Amlodipine Besylate (Norvasc) 5 mg BID PO Last administered on 09/23/18at 08:18; Admin Dose 5 MG; Start 09/20/18 at 21:00 Atorvastatin Calcium (Lipitor) 40 mg DAILY@21 PO Last administered on 09/22/18at 20:23; Admin Dose 40 MG; Start 09/20/18 at 21:00 Lisinopril (Zestril) 20 mg BID PO Last administered on 09/23/18at 08:18; Admin Dose 20 MG; Start 09/20/18 at 21:00 Metoprolol Tartrate (Lopressor) 50 mg BID PO Last administered on 09/23/18at 08:18; Admin Dose 50 MG; Start 09/20/18 at 21:00 Diagnostic Test (Pha) (Accu-Chek) 1 ea 02 XX ; Start 09/21/18 at 02:00 Insulin Aspart (Novolog Insulin Pen) NOVOLOG *MILD* ALGORITHM WITH MEALS BEDTIME SC Last administered on 09/21/18at 12:45; Admin Dose 1 UNIT; Start 09/20/18 at 18:00 Miscellaneous Information 1 ea NOTE XX ; Start 09/20/18 at 16:30 Glucose (Glutose) 15 gm Q15M PRN PO DECREASED GLUCOSE; Start 09/20/18 at 16:30 Glucose (Glutose) 22.5 gm Q15M PRN PO DECREASED GLUCOSE; Start 09/20/18 at 16:30 Dextrose (D50w Syringe) 25 ml Q15M PRN IV DECREASED GLUCOSE; Start 09/20/18 at 16:30 Dextrose (D50w Syringe) 50 ml Q15M PRN IV DECREASED GLUCOSE; Start 09/20/18 at 16:30 Glucagon (Glucagen) 1 mg Q15M PRN IM DECREASED GLUCOSE; Start 09/20/18 at 16:30 Glucose (Glutose) 15 gm Q15M PRN BUCCAL DECREASED GLUCOSE; Start 09/20/18 at 16:30 Acetaminophen (Tylenol Tab) 650 mg Q6H PRN PO MILD PAIN(1-3)OR ELEVATED TEMP Last administered on 09/21/18at 05:23; Admin Dose 650 MG; Start 09/21/18 at 05:30 Cefepime HCl 50 ml @ 100 mls/hr DAILY IVPB Last administered on 09/23/18at 08:10; Admin Dose 100 MLS/HR; Start 09/21/18 at 09:30 Heparin Sodium (Porcine) (Heparin (1000 Units/ml)) 6,100 unit AFTER DIALYSIS PRN CATHETER NOTE; Start 09/21/18 at 21:30 Albuterol (Proventil 0.083% (Neb)) 2.5 mg Q6H RESP THERAPY PRN HHN SHORTNESS OF BREATH Last administered on 09/22/18at 02:37; Admin Dose 2.5 MG; Start 09/22/18 at 02:00 Apixaban (Eliquis) 2.5 mg BID PO Last administered on 09/23/18at 08:18; Admin Dose 2.5 MG; Start 09/22/18 at 21:00 Nystatin (Nystatin Powder) 1 applic TID TOP Last administered on 09/23/18at 08:19; Admin Dose 1 APPLIC; Start 09/22/18 at 14:00 Lorazepam (Ativan) 0.25 mg Q24H PRN IV agitation; Start 09/22/18 at 16:00 NABIL ALBRECHT Sep 23, 2018 09:51
[2018-09-23] MEDS ORDERED: ALBUMIN HUMAN 25% 100 ML IV ONE (11:00)
[2018-09-23] MEDS ORDERED: ALTEPLASE (CATHFLO) 2 MG INJ CATHETER ONE (13:00)
--- NOTE | 2018-09-23 13:21 | PN ---
Date/Time of Note Date/Time of Note DATE: 09/23/18 TIME: 13:18 Assessment/Plan VTE Prophylaxis Risk score (from Ns)>0 risk: 12 SCD applied (from Ns): Yes Pharmacological prophylaxis: apixaban Lines/Catheters IV Catheter Type (from [facility]): Juan Urinary Cath still in place: No Assessment/Plan Hospital Course 1. Acute hypoxemic respiratory failure, etiology is secondary to volume o verload. The patient is clinically improving. Continue ultrafiltration with dialysis. Wean off oxygen as tolerated. 2. Fever, systemic inflammatory response syndrome. Etiology is unclear, possible viral versus pna versus urinary tract infection. mildly elevated procalcitonin level. on abx per ID. 3. End-stage renal disease. s/p new catheter. HD today. will repeat tomorrow 4. Anemia. Monitor hemoglobin and hematocrit levels. We will give Epogen as needed. 5. Mineral bone disorder. Monitor calcium and phosphorus levels. 6. Hypertension. Continue current blood pressure regimen. Continue ultrafiltration with dialysis. 7. Atrial fibrillation, rate controlled. Continue metoprolol and Eliquis. 8. Coronary artery disease, continue medical management. 9. History of cerebrovascular accident. Continue current medical management. 10. Diabetes. Continue Accu-Cheks and insulin sliding scale. 11. Acute encephalopathy and dementia, etiology is toxic metabolic. Continue to monitor. 12. Gastrointestinal and deep vein thrombosis prophylaxis. Result Diagram: 09/22/18 0545 09/22/18 0545 Results 24hrs Laboratory Tests Test 09/22/18 16:42 09/22/18 20:22 09/23/18 08:08 09/23/18 12:39 Bedside Glucose 109 130 106 109 Subjective 24 Hr Interval Summary Free Text/Dictation s/p new catheter placement currently on HD with poor blood flow and high venous pressures still has some s.o.b d/w rn gen nad cv rrr pulm rales abd soft, nd, nt +bs ext: no edema Exam/Review of Systems Exam Vitals Vital Signs Date Temp Pulse Resp B/P (MAP) Pulse Ox O2 O2 Flow FiO2 Time Delivery Rate 09/23/18 71 12:30 09/23/18 98.6 22 122/62 96 Nasal 11:10 (82) Cannula 09/23/18 3.0 10:00 09/22/18 31 02:54 Intake and Output 09/22/18 09/22/18 09/23/18 1414:59 22:59 06:59 IntakeIntake Total 200 ml BalanceBalance 200 ml Results Results 24hrs Laboratory Tests Test 09/22/18 16:42 09/22/18 20:22 09/23/18 08:08 09/23/18 12:39 Bedside Glucose 109 130 106 109 Medications Medication Current Medications Amlodipine Besylate (Norvasc) 5 mg BID PO Last administered on 09/23/18at 08:18; Admin Dose 5 MG; Start 09/20/18 at 21:00 Atorvastatin Calcium (Lipitor) 40 mg DAILY@21 PO Last administered on 09/22/18at 20:23; Admin Dose 40 MG; Start 09/20/18 at 21:00 Lisinopril (Zestril) 20 mg BID PO Last administered on 09/23/18at 08:18; Admin Dose 20 MG; Start 09/20/18 at 21:00 Metoprolol Tartrate (Lopressor) 50 mg BID PO Last administered on 09/23/18at 08:18; Admin Dose 50 MG; Start 09/20/18 at 21:00 Diagnostic Test (Pha) (Accu-Chek) 1 ea 02 XX ; Start 09/21/18 at 02:00 Insulin Aspart (Novolog Insulin Pen) NOVOLOG *MILD* ALGORITHM WITH MEALS BEDTIME SC Last administered on 09/21/18at 12:45; Admin Dose 1 UNIT; Start 09/20/18 at 18:00 Miscellaneous Information 1 ea NOTE XX ; Start 09/20/18 at 16:30 Glucose (Glutose) 15 gm Q15M PRN PO DECREASED GLUCOSE; Start 09/20/18 at 16:30 Glucose (Glutose) 22.5 gm Q15M PRN PO DECREASED GLUCOSE; Start 09/20/18 at 16:30 Dextrose (D50w Syringe) 25 ml Q15M PRN IV DECREASED GLUCOSE; Start 09/20/18 at 16:30 Dextrose (D50w Syringe) 50 ml Q15M PRN IV DECREASED GLUCOSE; Start 09/20/18 at 16:30 Glucagon (Glucagen) 1 mg Q15M PRN IM DECREASED GLUCOSE; Start 09/20/18 at 16:30 Glucose (Glutose) 15 gm Q15M PRN BUCCAL DECREASED GLUCOSE; Start 09/20/18 at 16:30 Acetaminophen (Tylenol Tab) 650 mg Q6H PRN PO MILD PAIN(1-3)OR ELEVATED TEMP Last administered on 09/21/18 05:23; Admin Dose 650 MG; Start 09/21/18 at 05:30 Cefepime HCl 50 ml @ 100 mls/hr DAILY IVPB Last administered on 09/23/18 08:10; Admin Dose 100 MLS/HR; Start 09/21/18 at 09:30 Heparin Sodium (Porcine) (Heparin (1000 Units/ml)) 6,100 unit AFTER DIALYSIS PRN CATHETER NOTE; Start 09/21/18 at 21:30 Albuterol (Proventil 0.083% (Neb)) 2.5 mg Q6H RESP THERAPY PRN HHN SHORTNESS OF BREATH Last administered on 09/22/18at 02:37; Admin Dose 2.5 MG; Start 09/22/18 at 02:00 Apixaban (Eliquis) 2.5 mg BID PO Last administered on 09/23/18at 08:18; Admin Dose 2.5 MG; Start 09/22/18 at 21:00 Nystatin (Nystatin Powder) 1 applic TID TOP Last administered on 09/23/18at 12:55; Admin Dose 1 APPLIC; Start 09/22/18 at 14:00 Lorazepam (Ativan) 0.25 mg Q24H PRN IV agitation; Start 09/22/18 at 16:00 SEVEN BIRD MD Sep 23, 2018 13:20
--- NOTE | 2018-09-23 13:47 | CONS ---
Assessment/Plan Assessment/Plan Hospital Course (Demo Recall) Patient is in hemodialysis awake looks comfortable no fevers overnight WBC 4.1 yesterday no labs this morning Antimicrobials: Cefepime Indwelling: Left IJ Juan Chest x-ray on admission revealed increased perihilar bronchovascular markings. Hazy infiltrates at the right lung base with small right pleural effusion Physical examination: Well-developed ill-appearing elderly woman who is in no distress. Head atraumatic normocephalic neck is supple chest rise symmetrical breath sounds diminished bases heart S1-S2 abdomen soft bowel sounds present extremities without cyanosis Assessment: 1. Sepsis, present on admission 2. Right lower lobe infiltrate pneumonia 3. End-stage renal disease, hemodialysis dependent 4. Acute on chronic CHF 5. Chronic atrial fibrillation 6. Diabetes 7. Hypertension Plan: Patient is clinically stable, fevers resolved, will order blood cultures today with hemodialysis, continue on current antibiotics, repeat chest x-ray Consultation Date/Type/Reason Admit Date/Time Sep 21, 2018 at 09:10 Initial Consult Date 09/21/18 Type of Consult id Requesting Provider: STEVE REN DO Date/Time of Note DATE: 09/23/18 TIME: 13:46 Exam/Review of Systems Exam Vitals Vital Signs Date Temp Pulse Resp B/P (MAP) Pulse Ox O2 O2 Flow FiO2 Time Delivery Rate 09/23/18 77 13:15 09/23/18 98.6 22 122/62 96 Nasal 11:10 (82) Cannula 09/23/18 3.0 10:00 09/22/18 31 02:54 Intake and Output 09/22/18 09/22/18 09/23/18 1515:00 23:00 07:00 IntakeIntake Total 200 ml BalanceBalance 200 ml Results Result Diagram: 09/22/18 0545 09/22/18 0545 Results 24hrs Laboratory Tests Test 09/22/18 16:42 09/22/18 20:22 09/23/18 08:08 09/23/18 12:39 Bedside Glucose 109 130 106 109 Medications Medication Current Medications Amlodipine Besylate (Norvasc) 5 mg BID PO Last administered on 09/23/18at 08:18; Admin Dose 5 MG; Start 09/20/18 at 21:00 Atorvastatin Calcium (Lipitor) 40 mg DAILY@21 PO Last administered on 09/22/18at 20:23; Admin Dose 40 MG; Start 09/20/18 at 21:00 Lisinopril (Zestril) 20 mg BID PO Last administered on 09/23/18at 08:18; Admin Dose 20 MG; Start 09/20/18 at 21:00 Metoprolol Tartrate (Lopressor) 50 mg BID PO Last administered on 09/23/18at 08:18; Admin Dose 50 MG; Start 09/20/18 at 21:00 Diagnostic Test (Pha) (Accu-Chek) 1 ea 02 XX ; Start 09/21/18 at 02:00 Insulin Aspart (Novolog Insulin Pen) NOVOLOG *MILD* ALGORITHM WITH MEALS BEDTIME SC Last administered on 09/21/18at 12:45; Admin Dose 1 UNIT; Start 09/20/18 at 18:00 Miscellaneous Information 1 ea NOTE XX ; Start 09/20/18 at 16:30 Glucose (Glutose) 15 gm Q15M PRN PO DECREASED GLUCOSE; Start 09/20/18 at 16:30 Glucose (Glutose) 22.5 gm Q15M PRN PO DECREASED GLUCOSE; Start 09/20/18 at 16:30 Dextrose (D50w Syringe) 25 ml Q15M PRN IV DECREASED GLUCOSE; Start 09/20/18 at 16:30 Dextrose (D50w Syringe) 50 ml Q15M PRN IV DECREASED GLUCOSE; Start 09/20/18 at 16:30 Glucagon (Glucagen) 1 mg Q15M PRN IM DECREASED GLUCOSE; Start 09/20/18 at 16:30 Glucose (Glutose) 15 gm Q15M PRN BUCCAL DECREASED GLUCOSE; Start 09/20/18 at 16:30 Acetaminophen (Tylenol Tab) 650 mg Q6H PRN PO MILD PAIN(1-3)OR ELEVATED TEMP Last administered on 09/21/18at 05:23; Admin Dose 650 MG; Start 09/21/18 at 05:30 Cefepime HCl 50 ml @ 100 mls/hr DAILY IVPB Last administered on 09/23/18at 08:10; Admin Dose 100 MLS/HR; Start 09/21/18 at 09:30 Heparin Sodium (Porcine) (Heparin (1000 Units/ml)) 6,100 unit AFTER DIALYSIS PRN CATHETER NOTE; Start 09/21/18 at 21:30 Albuterol (Proventil 0.083% (Neb)) 2.5 mg Q6H RESP THERAPY PRN HHN SHORTNESS OF BREATH Last administered on 09/22/18at 02:37; Admin Dose 2.5 MG; Start 09/22/18 at 02:00 Apixaban (Eliquis) 2.5 mg BID PO Last administered on 09/23/18at 08:18; Admin Dose 2.5 MG; Start 09/22/18 at 21:00 Nystatin (Nystatin Powder) 1 applic TID TOP Last administered on 09/23/18at 12:55; Admin Dose 1 APPLIC; Start 09/22/18 at 14:00 Lorazepam (Ativan) 0.25 mg Q24H PRN IV agitation; Start 09/22/18 at 16:00 EVY DEJESUS NP Sep 23, 2018 13:47
[2018-09-23] MEDS ORDERED: HALOPERIDOL 5 MG INJ IM ONE (18:00)
[2018-09-23] MEDS: ATORVASTATIN 40 MG TAB PO SCH (20:55)
[2018-09-24] VITALS (31 sets, daily range): BP systolic 68–156; BP diastolic 36–92; PULSE 66–93; RESP 18–22
[2018-09-24] MEDS: LORAZEPAM 2 MG INJ IV PRN (01:32)
[2018-09-24] MEDS: INSULIN ASPART [NOVOLOG] 3 ML PEN SC SCH ×4 (07:52→20:25)
[2018-09-24] MEDS: APIXABAN 5 MG TABLET PO SCH ×2 (08:37→22:32)
[2018-09-24] MEDS: CEFEPIME 1GM/50 ML (PMX) 50 ML IVPB SCH (08:37)
[2018-09-24] MEDS: LISINOPRIL 20 MG TAB PO SCH ×2 (09:00→22:33)
[2018-09-24] MEDS: METOPROLOL 50 MG TAB PO SCH ×2 (09:00→22:34)
[2018-09-24] MEDS: AMLODIPINE 5 MG TAB PO SCH ×2 (09:00→22:33)
[2018-09-24] MEDS: NYSTATIN 30 GM POWDER BTL TOP SCH ×3 (09:12→22:35)
[2018-09-24] MEDS: ALBUTEROL 0.083% (NEB) 2.5 MG/3 ML AMP HHN PRN (11:13)
--- NOTE | 2018-09-24 13:36 | PN ---
Date/Time of Note Date/Time of Note DATE: 09/24/18 TIME: 13:34 Assessment/Plan VTE Prophylaxis Risk score (from Ns)>0 risk: 11 SCD applied (from Ns): Yes Pharmacological prophylaxis: apixaban Lines/Catheters IV Catheter Type (from [facility]): Juan Urinary Cath still in place: No Assessment/Plan Hospital Course 1. Acute hypoxemic respiratory failure, etiology is secondary to volume o verload. The patient is clinically improving. Continue ultrafiltration with dialysis. Wean off oxygen as tolerated. 2. Fever, systemic inflammatory response syndrome. Etiology is unclear, possible viral versus pna versus urinary tract infection. mildly elevated procalcitonin level. on abx per ID. 3. End-stage renal disease. s/p new catheter, but pt partially pulled it out. cxr confirms in svc. will do hd today. 4. Anemia. Monitor hemoglobin and hematocrit levels. We will give Epogen as needed. 5. Mineral bone disorder. Monitor calcium and phosphorus levels. 6. Hypertension. Continue current blood pressure regimen. Continue ultrafiltration with dialysis. 7. Atrial fibrillation, rate controlled. Continue metoprolol and Eliquis. 8. Coronary artery disease, continue medical management. 9. History of cerebrovascular accident. Continue current medical management. 10. Diabetes. Continue Accu-Cheks and insulin sliding scale. 11. Acute encephalopathy and dementia, etiology is toxic metabolic. Continue to monitor. 12. Gastrointestinal and deep vein thrombosis prophylaxis. Result Diagram: 09/24/18 0525 09/24/18 0525 Results 24hrs Laboratory Tests Test 09/23/18 18:09 09/23/18 20:59 09/24/18 05:25 09/24/18 07:51 Bedside Glucose 113 145 112 White Blood Count 5.6 # Red Blood Count 4.01 L Hemoglobin 12.2 Hematocrit 37.4 Mean Corpuscular 93.3 Volume Mean Corpuscular 30.4 Hemoglobin Mean Corpuscular 32.6 Hemoglobin Concent Red Cell 13.8 Distribution Width Platelet Count 236 Mean Platelet Volume 11.0 H Immature 0.400 Granulocytes % Neutrophils % 62.9 Lymphocytes % 22.3 Monocytes % 12.1 H Eosinophils % 1.6 Basophils % 0.7 Nucleated Red Blood 0.0 Cells % Immature 0.020 Granulocytes # Neutrophils # 3.5 Lymphocytes # 1.3 Monocytes # 0.7 Eosinophils # 0.1 Basophils # 0.0 Nucleated Red Blood 0.0 Cells # Sodium Level 139 Potassium Level 4.0 Chloride Level 102 Carbon Dioxide Level 25 Anion Gap 12 Blood Urea Nitrogen 44 #H Creatinine 3.85 H Est Glomerular Filtrat Rate mL/min Glucose Level 141 Calcium Level 10.4 H Phosphorus Level 5.5 H Magnesium Level 2.3 Test 09/24/18 11:37 Bedside Glucose 129 Subjective 24 Hr Interval Summary Free Text/Dictation pt pulled out part of new catheter no n/v or shortness of breath d/w rn gen nad cv rrr pulm coarse bs abd soft, nd, nt +bs ext: no edema Exam/Review of Systems Exam Vitals Vital Signs Date Temp Pulse Resp B/P (MAP) Pulse Ox O2 O2 Flow FiO2 Time Delivery Rate 09/24/18 97.0 69 22 135/61 99 2.0 12:00 (85) 09/24/18 Nasal 11:13 Cannula 09/22/18 31 02:54 Intake and Output 09/23/18 09/23/18 09/24/18 1515:00 23:00 07:00 IntakeIntake Total 400 ml OutputOutput Total 2100 ml BalanceBalance -2100 ml 400 ml Results Results 24hrs Laboratory Tests Test 09/23/18 18:09 09/23/18 20:59 09/24/18 05:25 09/24/18 07:51 Bedside Glucose 113 145 112 White Blood Count 5.6 # Red Blood Count 4.01 L Hemoglobin 12.2 Hematocrit 37.4 Mean Corpuscular 93.3 Volume Mean Corpuscular 30.4 Hemoglobin Mean Corpuscular 32.6 Hemoglobin Concent Red Cell 13.8 Distribution Width Platelet Count 236 Mean Platelet Volume 11.0 H Immature 0.400 Granulocytes % Neutrophils % 62.9 Lymphocytes % 22.3 Monocytes % 12.1 H Eosinophils % 1.6 Basophils % 0.7 Nucleated Red Blood 0.0 Cells % Immature 0.020 Granulocytes # Neutrophils # 3.5 Lymphocytes # 1.3 Monocytes # 0.7 Eosinophils # 0.1 Basophils # 0.0 Nucleated Red Blood 0.0 Cells # Sodium Level 139 Potassium Level 4.0 Chloride Level 102 Carbon Dioxide Level 25 Anion Gap 12 Blood Urea Nitrogen 44 #H Creatinine 3.85 H Est Glomerular Filtrat Rate mL/min Glucose Level 141 Calcium Level 10.4 H Phosphorus Level 5.5 H Magnesium Level 2.3 Test 09/24/18 11:37 Bedside Glucose 129 Medications Medication Current Medications Amlodipine Besylate (Norvasc) 5 mg BID PO Last administered on 09/23/18at 20:56; Admin Dose 5 MG; Start 09/20/18 at 21:00 Atorvastatin Calcium (Lipitor) 40 mg DAILY@21 PO Last administered on 09/23/18at 20:55; Admin Dose 40 MG; Start 09/20/18 at 21:00 Lisinopril (Zestril) 20 mg BID PO Last administered on 09/23/18 20:56; Admin Dose 20 MG; Start 09/20/18 at 21:00 Metoprolol Tartrate (Lopressor) 50 mg BID PO Last administered on 09/23/18 20:56; Admin Dose 50 MG; Start 09/20/18 at 21:00 Diagnostic Test (Pha) (Accu-Chek) 1 ea 02 XX ; Start 09/21/18 at 02:00 Insulin Aspart (Novolog Insulin Pen) NOVOLOG *MILD* ALGORITHM WITH MEALS BEDTIME SC Last administered on 09/21/18at 12:45; Admin Dose 1 UNIT; Start 09/20/18 at 18:00 Miscellaneous Information 1 ea NOTE XX ; Start 09/20/18 at 16:30 Glucose (Glutose) 15 gm Q15M PRN PO DECREASED GLUCOSE; Start 09/20/18 at 16:30 Glucose (Glutose) 22.5 gm Q15M PRN PO DECREASED GLUCOSE; Start 09/20/18 at 16:30 Dextrose (D50w Syringe) 25 ml Q15M PRN IV DECREASED GLUCOSE; Start 09/20/18 at 16:30 Dextrose (D50w Syringe) 50 ml Q15M PRN IV DECREASED GLUCOSE; Start 09/20/18 at 16:30 Glucagon (Glucagen) 1 mg Q15M PRN IM DECREASED GLUCOSE; Start 09/20/18 at 16:30 Glucose (Glutose) 15 gm Q15M PRN BUCCAL DECREASED GLUCOSE; Start 09/20/18 at 16:30 Acetaminophen (Tylenol Tab) 650 mg Q6H PRN PO MILD PAIN(1-3)OR ELEVATED TEMP Last administered on 09/21/18at 05:23; Admin Dose 650 MG; Start 09/21/18 at 05:30 Cefepime HCl 50 ml @ 100 mls/hr DAILY IVPB Last administered on 09/24/18 08:37; Admin Dose 100 MLS/HR; Start 09/21/18 at 09:30 Heparin Sodium (Porcine) (Heparin (1000 Units/ml)) 6,100 unit AFTER DIALYSIS PRN CATHETER NOTE; Start 09/21/18 at 21:30 Albuterol (Proventil 0.083% (Neb)) 2.5 mg Q6H RESP THERAPY PRN HHN SHORTNESS OF BREATH Last administered on 09/24/18 11:13; Admin Dose 2.5 MG; Start 09/22/18 at 02:00 Apixaban (Eliquis) 2.5 mg BID PO Last administered on 09/24/18 08:37; Admin Dose 2.5 MG; Start 09/22/18 at 21:00 Nystatin (Nystatin Powder) 1 applic TID TOP Last administered on 09/24/18 12:50; Admin Dose 1 APPLIC; Start 09/22/18 at 14:00 Lorazepam (Ativan) 0.25 mg Q24H PRN IV agitation Last administered on 09/24/18 01:32; Admin Dose 0.25 MG; Start 09/22/18 at 16:00 SEVEN BIRD MD Sep 24, 2018 13:36
--- NOTE | 2018-09-24 14:30 | CONS ---
Consultation Date/Type/Reason Admit Date/Time Sep 21, 2018 at 09:10 Initial Consult Date 09/21/18 Type of Consult SUBJECTIVE: Patient is awake, alert, looks comfortable. No fevers. VS: stable T: 98.3 LABS: Reviewed. WBC-5.6 Antimicrobials: Cefepime Indwelling: Left IJ Juan Chest x-ray on admission revealed increased perihilar bronchovascular markings. Hazy infiltrates at the right lung base with small right pleural effusion CXR 09/23/18: 1. Findings suggestive of pulmonary vascular congestion with small bilateral pleural effusions. No significant interval change. 2. Mild cardiomegaly and aortic atherosclerosis. 3. Tubes and lines, as described above. Physical examination: GEN: Well-developed ill-appearing elderly woman who is in no distress. HENT: Head atraumatic normocephalic; neck is supple PULM: chest rise symmetrical breath sounds diminished bases Heart: S1-S2 Abdomen: soft, bowel sounds present Extremities without cyanosis Assessment: 1. Sepsis, present on admission 2. Right lower lobe infiltrate pneumonia 3. End-stage renal disease, hemodialysis dependent 4. Acute on chronic CHF 5. Chronic atrial fibrillation 6. Diabetes 7. Hypertension Plan: Patient is clinically stable. Repeat blood cultures are negative x2. Continue on current antibiotics. CRX noted. Requesting Provider: STEVE REN DO Date/Time of Note DATE: 09/24/18 TIME: 14:25 Exam/Review of Systems Exam Vitals Vital Signs Date Temp Pulse Resp B/P (MAP) Pulse Ox O2 O2 Flow FiO2 Time Delivery Rate 09/24/18 98.3 80 20 125/58 95 Nasal 14:00 (80) Cannula 09/24/18 2.0 12:00 09/22/18 31 02:54 Intake and Output 09/23/18 09/23/18 09/24/18 1515:00 23:00 07:00 IntakeIntake Total 400 ml OutputOutput Total 2100 ml BalanceBalance -2100 ml 400 ml Results Result Diagram: 09/24/18 0525 09/24/18 0525 Results 24hrs Laboratory Tests Test 09/23/18 18:09 09/23/18 20:59 09/24/18 05:25 09/24/18 07:51 Bedside Glucose 113 145 112 White Blood Count 5.6 # Red Blood Count 4.01 L Hemoglobin 12.2 Hematocrit 37.4 Mean Corpuscular 93.3 Volume Mean Corpuscular 30.4 Hemoglobin Mean Corpuscular 32.6 Hemoglobin Concent Red Cell 13.8 Distribution Width Platelet Count 236 Mean Platelet Volume 11.0 H Immature 0.400 Granulocytes % Neutrophils % 62.9 Lymphocytes % 22.3 Monocytes % 12.1 H Eosinophils % 1.6 Basophils % 0.7 Nucleated Red Blood 0.0 Cells % Immature 0.020 Granulocytes # Neutrophils # 3.5 Lymphocytes # 1.3 Monocytes # 0.7 Eosinophils # 0.1 Basophils # 0.0 Nucleated Red Blood 0.0 Cells # Sodium Level 139 Potassium Level 4.0 Chloride Level 102 Carbon Dioxide Level 25 Anion Gap 12 Blood Urea Nitrogen 44 #H Creatinine 3.85 H Est Glomerular Filtrat Rate mL/min Glucose Level 141 Calcium Level 10.4 H Phosphorus Level 5.5 H Magnesium Level 2.3 Test 09/24/18 11:37 Bedside Glucose 129 Medications Medication Current Medications Amlodipine Besylate (Norvasc) 5 mg BID PO Last administered on 09/23/18at 20:56; Admin Dose 5 MG; Start 09/20/18 at 21:00 Atorvastatin Calcium (Lipitor) 40 mg DAILY@21 PO Last administered on 09/23/18at 20:55; Admin Dose 40 MG; Start 09/20/18 at 21:00 Lisinopril (Zestril) 20 mg BID PO Last administered on 09/23/18at 20:56; Admin Dose 20 MG; Start 09/20/18 at 21:00 Metoprolol Tartrate (Lopressor) 50 mg BID PO Last administered on 09/23/18at 20:56; Admin Dose 50 MG; Start 09/20/18 at 21:00 Diagnostic Test (Pha) (Accu-Chek) 1 ea 02 XX ; Start 09/21/18 at 02:00 Insulin Aspart (Novolog Insulin Pen) NOVOLOG *MILD* ALGORITHM WITH MEALS BEDTIME SC Last administered on 09/21/18at 12:45; Admin Dose 1 UNIT; Start 09/20 at 18:00 Miscellaneous Information 1 ea NOTE XX ; Start 09/20/18 at 16:30 Glucose (Glutose) 15 gm Q15M PRN PO DECREASED GLUCOSE; Start 09/20/18 at 16:30 Glucose (Glutose) 22.5 gm Q15M PRN PO DECREASED GLUCOSE; Start 09/20/18 at 16:30 Dextrose (D50w Syringe) 25 ml Q15M PRN IV DECREASED GLUCOSE; Start 09/20/18 at 16:30 Dextrose (D50w Syringe) 50 ml Q15M PRN IV DECREASED GLUCOSE; Start 09/20/18 at 16:30 Glucagon (Glucagen) 1 mg Q15M PRN IM DECREASED GLUCOSE; Start 09/20/18 at 16:30 Glucose (Glutose) 15 gm Q15M PRN BUCCAL DECREASED GLUCOSE; Start 09/20/18 at 16:30 Acetaminophen (Tylenol Tab) 650 mg Q6H PRN PO MILD PAIN(1-3)OR ELEVATED TEMP Last administered on 09/21/18 05:23; Admin Dose 650 MG; Start 09/21/18 at 05:30 Cefepime HCl 50 ml @ 100 mls/hr DAILY IVPB Last administered on 09/24/18 08:37; Admin Dose 100 MLS/HR; Start 09/21/18 at 09:30 Heparin Sodium (Porcine) (Heparin (1000 Units/ml)) 6,100 unit AFTER DIALYSIS PRN CATHETER NOTE; Start 09/21/18 at 21:30 Albuterol (Proventil 0.083% (Neb)) 2.5 mg Q6H RESP THERAPY PRN HHN SHORTNESS OF BREATH Last administered on 09/24/18 11:13; Admin Dose 2.5 MG; Start 09/22/18 at 02:00 Apixaban (Eliquis) 2.5 mg BID PO Last administered on 09/24/18 08:37; Admin Dose 2.5 MG; Start 09/22/18 at 21:00 Nystatin (Nystatin Powder) 1 applic TID TOP Last administered on 09/24/18 12:50; Admin Dose 1 APPLIC; Start 09/22/18 at 14:00 Lorazepam (Ativan) 0.25 mg Q24H PRN IV agitation Last administered on 09/24/18 01:32; Admin Dose 0.25 MG; Start 09/22/18 at 16:00 MADINA ALLEN Sep 24, 2018 14:29
[2018-09-24] MEDS: ATORVASTATIN 40 MG TAB PO SCH (22:33)
[2018-09-25] VITALS (24 sets, daily range): BP systolic 85–174; BP diastolic 55–78; PULSE 74–98; RESP 18–20
[2018-09-25] MEDS: LORAZEPAM 2 MG INJ IV PRN (01:03)
[2018-09-25] MEDS: ACCU-CHEK XX SCH (01:06)
[2018-09-25] MEDS: INSULIN ASPART [NOVOLOG] 3 ML PEN SC SCH ×4 (08:00→21:00)
[2018-09-25] MEDS: CEFEPIME 1GM/50 ML (PMX) 50 ML IVPB SCH (08:25)
[2018-09-25] MEDS: APIXABAN 5 MG TABLET PO SCH (08:29)
[2018-09-25] MEDS: LISINOPRIL 20 MG TAB PO SCH ×2 (08:29→21:00)
[2018-09-25] MEDS: METOPROLOL 50 MG TAB PO SCH ×2 (08:29→21:00)
[2018-09-25] MEDS: NYSTATIN 30 GM POWDER BTL TOP SCH ×3 (08:30→21:00)
[2018-09-25] MEDS: AMLODIPINE 5 MG TAB PO SCH ×2 (08:30→21:00)
--- NOTE | 2018-09-25 09:20 | PN ---
DATE: 09/25/2018 SUBJECTIVE: The patient remains confused. The patient had hemodialysis yesterday with 1.6 liters re moved. The patient remains restless at night. No other events noted. OBJECTIVE: VITAL SIGNS: Blood pressure is 145/65, respirations 18, pulse 86, temperature 98.3. HEENT: Head is normocephalic. NECK: Supple. HEART: Regular rate. LUNGS: Show diminished breath sounds at the base. ABDOMEN: Soft, nontender to palpation without rebound or guarding. EXTREMITIES: Negative for clubbing, cyanosis, no edema. DERMATOLOGIC: No rashes. MUSCULOSKELETAL: No joint effusion. NEUROLOGIC: No change in exam. MEDICATIONS: Reviewed. LABORATORY DATA: Reviewed. ASSESSMENT AND PLAN: 1. Acute hypoxemic respiratory failure. Etiology is felt to be secondary to volume overload. The p atient continues to have dialysis, although remains on nasal cannula. We will continue current treat ment plan. We will place a pulmonary consult for further evaluation. Wean off oxygen as tolerated. 2. Fever, systemic inflammatory response syndrome, positive questionable urinary tract infection. T he patient is currently on antibiotic therapy. Continue to monitor. Follow up with infectious disea se. 3. End-stage renal disease. The patient is status post new Juan catheter as Perm-A-Cath was wanda chika. We will follow up with either vascular surgery or interventional radiology for Perm-A-Cath plac ement. 4. Anemia. Monitor hemoglobin and hematocrit levels. Continue Epogen. 5. Mineral bone disorder. Monitor calcium and phosphorus levels. 6. Hypertension. Continue current blood pressure regimen. Continue ultrafiltration with dialysis. 7. Atrial fibrillation, rate controlled. Continue medical management. 8. Coronary artery disease. Continue current treatment plan. 9. History of cerebrovascular accident. Continue medical management. 10. Diabetes. Continue Accu-Cheks and insulin sliding scale. 11. Acute encephalopathy on top of dementia, etiology is toxic metabolic. Continue to monitor. 12. Gastrointestinal and deep vein thrombosis prophylaxis. Dictated By: STEVE REN DO NR/NTS Conf#: [id number] DID#: [id number] CC: QUAN THORNE MD;*EndCC*
--- NOTE | 2018-09-25 09:42 | RADRPT ---
PROCEDURE: PLACEMENT OF RIGHT INTERNAL JUGULAR VENOUS TEMPORARY DIALYSIS CATHETER . CLINICAL INDICATION: Renal failure. TECHNIQUE: Informed consent was obtained. The risks including bleeding and infection were explained to the jacobo ent. The patient understood and was willing to proceed. A procedural pause was performed. The jacobo ent's name, date of , and procedure to be performed were verified. Limited sonography of the [facility] neck was performed. Noted is a patent right internal jugular vein. The central line was inserted with all elements of maximal sterile barrier technique. All of the following were used: head coverin g, facial mask, sterile gown, sterile gloves, a large sterile sheet, hand hygiene, and 2% chlorhexid ine for cutaneous antisepsis. The right neck and anterior superior chest wall was prepped and draped in the usual sterile fashion. Using local anesthesia, sterile technique, and ultrasound guidance, a 20-gauge needle was advanced in to the right internal jugular vein in the supraclavicular region. The 0.018 inch floppy tip guidewir e was advanced through the needle into the superior vena cava with fluoroscopic guidance. A 5-Zimbabwean sheath was advanced over the guidewire. The guidewire was removed and a 0.035 inch Amplatz wire was advanced into the superior vena cava, then the right atrium. Serial dilatation was performed to 12 [place]an. The temporary dialysis catheter was then advanced over the guidewire such that the tip was p laced in the right atrium. A 16 cm long, 11.5 [place]an Mahurkar temporary dialysis catheter was used. Tip position was confirmed in the right atrium with fluoroscopy. The two ports were each flushed wi th 1.5 ml of 1:1000 heparin. The catheter was secured to the skin with 2-0 monofilament. The site was dressed. The patient tolerated the procedure well. Specimens: None. Blood loss: 5 ml. Complications: None. Anesthesia: Local. Graft/Implant: Right internal jugular vein temporary dialysis catheter. COMPARISON: None. FINDINGS: Final radiographic images demonstrate the tip of the catheter in the upper right atrium. A total of 0.4 minutes of fluoroscopy time was used. The ultrasound images demonstrate the needle entering the internal jugular vein. IMPRESSION: Satisfactory insertion of right internal jugular vein temporary dialysis catheter with ultrasound and fluoroscopic guidance. RPTAT: QQ joshua Rasmussen Physician Date Time Electronically viewed and signed by joshua Rasmussen Physician on 09/25/2018 09:42 rV/
[2018-09-25] MEDS ORDERED: HEPARIN 1000 UNITS/ML 10 ML INJ ONE (10:38)
--- NOTE | 2018-09-25 11:11 | OPR ---
Date/Time of Note Date/Time of Note DATE: 09/25/18 TIME: 11:09 Operative Report Procedure Date: Sep 25, 2018 Preoperative Diagnosis End-stage renal disease Postoperative Diagnosis Same Operation/Procedure Performed Left femoral tunneled hemodialysis catheter placement Percent guidance into the central vein Surgeon see signature line Insect Control Aide None Anesthesia Type: other Estimated Blood Loss: minimal Transfusion none Specimen None Grafts/Implants none Complications none Disposition: PACU Procedure Description Patient was placed in supine position prepped and draped in usual sterile fashion timeout was called access was gained in the left common femoral vein using ultrasound guidance guidewire was advanced through without any difficulties which was followed through fluoroscopic guidance 50 cm tunneled hemodialysis catheter was brought into the left thigh advanced in the subcutaneous tunnel and over the guidewire through introducer sheath advanced into the left iliac vein and inferior vena cava the tip was placed at the junction of the inferior vena cava and the right atrium Both ports of the catheter were aspirated and injected using heparinized saline solution The catheter was secured to skin using 2-0 nylon sutures the exit site was closed using a single 3-0 Vicryl suture in interrupted fashion patient tolerated procedure well JOLANTA BEACUHAMP MD Sep 25, 2018 11:11
--- NOTE | 2018-09-25 11:42 | CONS ---
Assessment/Plan Assessment/Plan Hospital Course (Demo Recall) Acute on chronic diastolic heart failure: EF preserved as of 06/2018. 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 Now improved after HD Fever: possible UTI vs PNA. Cultures negative Chronic afib: on Eliquis. Rates controlled H/o CVA: 01/26 s/p lytics and transferred to [facility] for thrombectomy. In setting of afib diagnosis, likely was cardioembolic ESRD on HD CAD: unknown details DM HTN Dementia -eliquis 2.5mg BID -metoprolol 50mg PO BID -amlodipine 5mg BID -lisinopril 20mg BID -lipitor 40mg -HD for volume management Consultation Date/Type/Reason Admit Date/Time Sep 21, 2018 at 09:10 Initial Consult Date 09/21/18 Type of Consult Cardiology Requesting Provider: STEVE REN DO Date/Time of Note DATE: 09/25/18 TIME: 11:41 24 HR Interval Summary Free Text/Dictation Left femoral HD cath placed as pt dislodged her permacath. Son at bedside Exam/Review of Systems Vital Signs Vitals Vital Signs Date Temp Pulse Resp B/P (MAP) Pulse Ox O2 O2 Flow FiO2 Time Delivery Rate 09/25/18 97.1 79 18 142/60 94 Room Air 11:29 (87) 09/25/18 2.0 08:14 09/22/18 31 02:54 Intake and Output 09/24/18 09/24/18 09/25/18 1515:00 23:00 07:00 IntakeIntake Total 50 ml 380 ml OutputOutput Total 2100 ml BalanceBalance 50 ml -1720 ml Exam Constitutional: alert; No oriented Psych: confusion Neck: supple; No jvd Respiratory: diminished breath sounds; No clear to auscultation Cardiovascular: systolic murmur (2/6 CURT); No regular rate and rhythm, No edema Gastrointestinal: soft, non-tender; No distended Neurological: nl mental status; No nl speech Labs Result Diagram: 09/25/18 0538 09/25/18 0538 Results 24hrs Laboratory Tests Test 09/24/18 17:29 09/24/18 20:24 09/25/18 05:38 09/25/18 08:09 Bedside Glucose 114 120 139 White Blood Count 6.1 Red Blood Count 4.17 L Hemoglobin 12.8 Hematocrit 38.6 Mean Corpuscular 92.6 Volume Mean Corpuscular 30.7 Hemoglobin Mean Corpuscular 33.2 Hemoglobin Concent Red Cell 13.9 Distribution Width Platelet Count 269 Mean Platelet Volume 10.4 Immature 0.300 Granulocytes % Neutrophils % 67.3 Lymphocytes % 21.0 Monocytes % 9.9 Eosinophils % 1.0 Basophils % 0.5 Nucleated Red Blood 0.0 Cells % Immature 0.020 Granulocytes # Neutrophils # 4.1 Lymphocytes # 1.3 Monocytes # 0.6 Eosinophils # 0.1 Basophils # 0.0 Nucleated Red Blood 0.0 Cells # Sodium Level 140 Potassium Level 4.4 Chloride Level 104 Carbon Dioxide Level 24 Anion Gap 12 Blood Urea Nitrogen 33 #H Creatinine 3.21 H Est Glomerular Filtrat Rate mL/min Glucose Level 143 Calcium Level 10.9 H Phosphorus Level 5.3 H Magnesium Level 2.3 Medications Medications Current Medications Amlodipine Besylate (Norvasc) 5 mg BID PO Last administered on 09/25/18at 08:30; Admin Dose 5 MG; Start 09/20/18 at 21:00 Atorvastatin Calcium (Lipitor) 40 mg DAILY@21 PO Last administered on 09/24/18at 22:33; Admin Dose 40 MG; Start 09/20/18 at 21:00 Lisinopril (Zestril) 20 mg BID PO Last administered on 09/25/18at 08:29; Admin Dose 20 MG; Start 09/20/18 at 21:00 Metoprolol Tartrate (Lopressor) 50 mg BID PO Last administered on 09/25/18at 08:29; Admin Dose 50 MG; Start 09/20/18 at 21:00 Diagnostic Test (Pha) (Accu-Chek) 1 ea 02 XX ; Start 09/21/18 at 02:00 Insulin Aspart (Novolog Insulin Pen) NOVOLOG *MILD* ALGORITHM WITH MEALS BEDTIME SC Last administered on 09/21/18at 12:45; Admin Dose 1 UNIT; Start 09/20/18 at 18:00 Miscellaneous Information 1 ea NOTE XX ; Start 09/20/18 at 16:30 Glucose (Glutose) 15 gm Q15M PRN PO DECREASED GLUCOSE; Start 09/20/18 at 16:30 Glucose (Glutose) 22.5 gm Q15M PRN PO DECREASED GLUCOSE; Start 09/20/18 at 16:30 Dextrose (D50w Syringe) 25 ml Q15M PRN IV DECREASED GLUCOSE; Start 09/20/18 at 16:30 Dextrose (D50w Syringe) 50 ml Q15M PRN IV DECREASED GLUCOSE; Start 09/20/18 at 16:30 Glucagon (Glucagen) 1 mg Q15M PRN IM DECREASED GLUCOSE; Start 09/20/18 at 16:30 Glucose (Glutose) 15 gm Q15M PRN BUCCAL DECREASED GLUCOSE; Start 09/20/18 at 16:30 Acetaminophen (Tylenol Tab) 650 mg Q6H PRN PO MILD PAIN(1-3)OR ELEVATED TEMP Last administered on 09/21/18 05:23; Admin Dose 650 MG; Start 09/21/18 at 05:30 Cefepime HCl 50 ml @ 100 mls/hr DAILY IVPB Last administered on 09/25/18 08:25; Admin Dose 100 MLS/HR; Start 09/21/18 at 09:30 Heparin Sodium (Porcine) (Heparin (1000 Units/ml)) 6,100 unit AFTER DIALYSIS PRN CATHETER NOTE Last administered on 09/24/18at 21:51; Admin Dose 6,100 UNIT; Start 09/21/18 at 21:30 Albuterol (Proventil 0.083% (Neb)) 2.5 mg Q6H RESP THERAPY PRN HHN SHORTNESS OF BREATH Last administered on 09/24/18 11:13; Admin Dose 2.5 MG; Start 09/22/18 at 02:00 Apixaban (Eliquis) 2.5 mg BID PO Last administered on 09/25/18 08:29; Admin Do se 2.5 MG; Start 09/22/18 at 21:00 Nystatin (Nystatin Powder) 1 applic TID TOP Last administered on 09/25/18 08:30; Admin Dose 1 APPLIC; Start 09/22/18 at 14:00 Lorazepam (Ativan) 0.25 mg Q24H PRN IV agitation Last administered on 09/25/18 01:03; Admin Dose 0.25 MG; Start 09/22/18 at 16:00 NABIL ALBRECHT Sep 25, 2018 11:42
--- NOTE | 2018-09-25 16:26 | CONS ---
Assessment/Plan Assessment/Plan Hospital Course (Demo Recall) Awake confused looks comfortable no fevers overnight Antimicrobials: Cefepime Indwelling: Left IJ Juan Chest x-ray on admission revealed increased perihilar bronchovascular markings. Hazy infiltrates at the right lung base with small right pleural effusion Physical examination: Well-developed ill-appearing elderly woman who is in no distress. Head atraumatic normocephalic neck is supple chest rise symmetrical breath sounds diminished bases heart S1-S2 abdomen soft bowel sounds present extremities without cyanosis Assessment: 1. Sepsis, present on admission 2. Right lower lobe infiltrate pneumonia 3. End-stage renal disease, hemodialysis dependent 4. Acute on chronic CHF 5. Chronic atrial fibrillation 6. Diabetes 7. Hypertension Plan: Patient is clinically stable, continue antibiotics, aspiration precautions, hemodialysis per renal Consultation Date/Type/Reason Admit Date/Time Sep 21, 2018 at 09:10 Initial Consult Date 09/21/18 Type of Consult id Requesting Provider: STEVE REN DO Date/Time of Note DATE: 09/25/18 TIME: 16:24 Exam/Review of Systems Exam Vitals Vital Signs Date Temp Pulse Resp B/P (MAP) Pulse Ox O2 O2 Flow FiO2 Time Delivery Rate 09/25/18 98.7 79 18 174/78 94 Room Air 15:57 (110) 09/25/18 2.0 08:14 09/22/18 31 02:54 Intake and Output 09/24/18 09/24/18 09/25/18 1515:00 23:00 07:00 IntakeIntake Total 50 ml 380 ml OutputOutput Total 2100 ml BalanceBalance 50 ml -1720 ml Results Result Diagram: 09/25/18 0538 09/25/18 0538 Results 24hrs Laboratory Tests Test 09/24/18 17:29 09/24/18 20:24 09/25/18 05:38 09/25/18 08:09 Bedside Glucose 114 120 139 White Blood Count 6.1 Red Blood Count 4.17 L Hemoglobin 12.8 Hematocrit 38.6 Mean Corpuscular 92.6 Volume Mean Corpuscular 30.7 Hemoglobin Mean Corpuscular 33.2 Hemoglobin Concent Red Cell 13.9 Distribution Width Platelet Count 269 Mean Platelet Volume 10.4 Immature 0.300 Granulocytes % Neutrophils % 67.3 Lymphocytes % 21.0 Monocytes % 9.9 Eosinophils % 1.0 Basophils % 0.5 Nucleated Red Blood 0.0 Cells % Immature 0.020 Granulocytes # Neutrophils # 4.1 Lymphocytes # 1.3 Monocytes # 0.6 Eosinophils # 0.1 Basophils # 0.0 Nucleated Red Blood 0.0 Cells # Sodium Level 140 Potassium Level 4.4 Chloride Level 104 Carbon Dioxide Level 24 Anion Gap 12 Blood Urea Nitrogen 33 #H Creatinine 3.21 H Est Glomerular Filtrat Rate mL/min Glucose Level 143 Calcium Level 10.9 H Phosphorus Level 5.3 H Magnesium Level 2.3 Test 09/25/18 12:01 Bedside Glucose 128 Medications Medication Current Medications Amlodipine Besylate (Norvasc) 5 mg BID PO Last administered on 09/25/18at 08:30; Admin Dose 5 MG; Start 09/20/18 at 21:00 Atorvastatin Calcium (Lipitor) 40 mg DAILY@21 PO Last administered on 09/24/18at 22:33; Admin Dose 40 MG; Start 09/20/18 at 21:00 Lisinopril (Zestril) 20 mg BID PO Last administered on 09/25/18at 08:29; Admin Dose 20 MG; Start 09/20/18 at 21:00 Metoprolol Tartrate (Lopressor) 50 mg BID PO Last administered on 09/25/18at 08:29; Admin Dose 50 MG; Start 09/20/18 at 21:00 Diagnostic Test (Pha) (Accu-Chek) 1 ea 02 XX ; Start 09/21/18 at 02:00 Insulin Aspart (Novolog Insulin Pen) NOVOLOG *MILD* ALGORITHM WITH MEALS BEDTIME SC Last administered on 09/21/18at 12:45; Admin Dose 1 UNIT; Start 09/20/18 at 18:00 Miscellaneous Information 1 ea NOTE XX ; Start 09/20/18 at 16:30 Glucose (Glutose) 15 gm Q15M PRN PO DECREASED GLUCOSE; Start 09/20/18 at 16:30 Glucose (Glutose) 22.5 gm Q15M PRN PO DECREASED GLUCOSE; Start 09/20/18 at 16:30 Dextrose (D50w Syringe) 25 ml Q15M PRN IV DECREASED GLUCOSE; Start 09/20/18 at 16:30 Dextrose (D50w Syringe) 50 ml Q15M PRN IV DECREASED GLUCOSE; Start 09/20/18 at 16:30 Glucagon (Glucagen) 1 mg Q15M PRN IM DECREASED GLUCOSE; Start 09/20/18 at 16:30 Glucose (Glutose) 15 gm Q15M PRN BUCCAL DECREASED GLUCOSE; Start 09/20/18 at 16:30 Acetaminophen (Tylenol Tab) 650 mg Q6H PRN PO MILD PAIN(1-3)OR ELEVATED TEMP Last administered on 09/21/18 05:23; Admin Dose 650 MG; Start 09/21/18 at 05:30 Cefepime HCl 50 ml @ 100 mls/hr DAILY IVPB Last administered on 09/25/18 08:25; Admin Dose 100 MLS/HR; Start 09/21/18 at 09:30 Heparin Sodium (Porcine) (Heparin (1000 Units/ml)) 6,100 unit AFTER DIALYSIS PRN CATHETER NOTE Last administered on 09/24/18 21:51; Admin Dose 6,100 UNIT; Start 09/21/18 at 21:30 Albuterol (Proventil 0.083% (Neb)) 2.5 mg Q6H RESP THERAPY PRN HHN SHORTNESS OF BREATH Last administered on 09/24/18 11:13; Admin Dose 2.5 MG; Start 09/22/18 at 02:00 Apixaban (Eliquis) 2.5 mg BID PO Last administered on 09/25/18 08:29; Admin Dose 2.5 MG; Start 09/22/18 at 21:00 Nystatin (Nystatin Powder) 1 applic TID TOP Last administered on 09/25/18 12:03; Admin Dose 1 APPLIC; Start 09/22/18 at 14:00 Lorazepam (Ativan) 0.25 mg Q24H PRN IV agitation Last administered on 09/25/18 01:03; Admin Dose 0.25 MG; Start 09/22/18 at 16:00 EVY DEJESUS NP Sep 25, 2018 16:26
[2018-09-26] VITALS (16 sets, daily range): BP systolic 85–146; BP diastolic 50–78; PULSE 10–102; RESP 18–20
[2018-09-26] MEDS: HEPARIN 1000 UNITS/ML 10 ML INJ CATHETER SCH (01:08)
[2018-09-26] MEDS: ACCU-CHEK XX SCH (02:00)
[2018-09-26] MEDS: APIXABAN 5 MG TABLET PO SCH ×3 (02:38→21:12)
[2018-09-26] MEDS: ATORVASTATIN 40 MG TAB PO SCH ×2 (02:38→21:12)
[2018-09-26] MEDS: LORAZEPAM 2 MG INJ IV PRN (03:37)
[2018-09-26] MEDS: INSULIN ASPART [NOVOLOG] 3 ML PEN SC SCH ×4 (08:00→20:43)
[2018-09-26] MEDS: CEFEPIME 1GM/50 ML (PMX) 50 ML IVPB SCH (08:59)
[2018-09-26] MEDS: AMLODIPINE 5 MG TAB PO SCH ×2 (09:00→21:16)
[2018-09-26] MEDS: METOPROLOL 50 MG TAB PO SCH ×2 (09:00→21:15)
[2018-09-26] MEDS: LISINOPRIL 20 MG TAB PO SCH ×2 (09:03→21:13)
[2018-09-26] MEDS: NYSTATIN 30 GM POWDER BTL TOP SCH ×3 (09:03→21:00)
--- NOTE | 2018-09-26 14:54 | CONS ---
Assessment/Plan Assessment/Plan Hospital Course (Demo Recall) Acute on chronic diastolic heart failure: EF preserved as of 06/2018. 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 Now improved after HD Fever: possible UTI vs PNA. Cultures negative Chronic afib: on Eliquis. Rates controlled H/o CVA: 01/26 s/p lytics and transferred to [facility] for thrombectomy. In setting of afib diagnosis, likely was cardioembolic ESRD on HD: s/p left femoral HD cath as pt pulled out her left IJ cath CAD: unknown details DM HTN Dementia -eliquis 2.5mg BID -metoprolol 50mg PO BID -amlodipine 5mg BID -lisinopril 20mg BID -lipitor 40mg -HD for volume management Consultation Date/Type/Reason Admit Date/Time Sep 21, 2018 at 09:10 Initial Consult Date 09/21/18 Type of Consult Cardiology Requesting Provider: STEVE REN DO Date/Time of Note DATE: 09/26/18 TIME: 14:53 24 HR Interval Summary Free Text/Dictation Tired as she just completed PT. Otherwise no complaints. Exam/Review of Systems Vital Signs Vitals Vital Signs Date Temp Pulse Resp B/P (MAP) Pulse Ox O2 O2 Flow FiO2 Time Delivery Rate 09/26/18 73 12:06 09/26/18 98.1 19 112/59 96 Room Air 11:19 (76) 09/26/18 2.0 01:48 Intake and Output 09/25/18 09/25/18 09/26/18 1515:00 23:00 07:00 IntakeIntake Total 50 ml 600 ml OutputOutput Total 1400 ml BalanceBalance 50 ml 600 ml -1400 ml Exam Constitutional: alert; No distress Psych: confusion Head: normocephalic, atraumatic Neck: No jvd Respiratory: diminished breath sounds; No clear to auscultation Cardiovascular: systolic murmur (2/6 CURT); No regular rate and rhythm, No edema Gastrointestinal: soft, non-tender; No distended Labs Result Diagram: 09/25/18 0538 09/25/18 0538 Results 24hrs Laboratory Tests Test 09/25/18 18:06 09/25/18 20:26 09/26/18 02:45 09/26/18 08:58 Bedside Glucose 142 129 143 118 Test 09/26/18 12:44 Bedside Glucose 119 Medications Medications Current Medications Amlodipine Besylate (Norvasc) 5 mg BID PO Last administered on 09/26/18at 09:00; Admin Dose 5 MG; Start 09/20/18 at 21:00 Atorvastatin Calcium (Lipitor) 40 mg DAILY@21 PO Last administered on 09/26/18at 02:38; Admin Dose 40 MG; Start 09/20/18 at 21:00 Lisinopril (Zestril) 20 mg BID PO Last administered on 09/26/18at 09:03; Admin Dose 20 MG; Start 09/20/18 at 21:00 Metoprolol Tartrate (Lopressor) 50 mg BID PO Last administered on 09/26/18at 09:00; Admin Dose 50 MG; Start 09/20/18 at 21:00 Diagnostic Test (Pha) (Accu-Chek) 1 ea 02 XX ; Start 09/21/18 at 02:00 Insulin Aspart (Novolog Insulin Pen) NOVOLOG *MILD* ALGORITHM WITH MEALS BEDTIME SC Last administered on 09/25/18at 18:10; Admin Dose 1 UNIT; Start 09/20/18 at 18:00 Miscellaneous Information 1 ea NOTE XX ; Start 09/20/18 at 16:30 Glucose (Glutose) 15 gm Q15M PRN PO DECREASED GLUCOSE; Start 09/20/18 at 16:30 Glucose (Glutose) 22.5 gm Q15M PRN PO DECREASED GLUCOSE; Start 09/20/18 at 16:30 Dextrose (D50w Syringe) 25 ml Q15M PRN IV DECREASED GLUCOSE; Start 09/20/18 at 16:30 Dextrose (D50w Syringe) 50 ml Q15M PRN IV DECREASED GLUCOSE; Start 09/20/18 at 16:30 Glucagon (Glucagen) 1 mg Q15M PRN IM DECREASED GLUCOSE; Start 09/20/18 at 16:30 Glucose (Glutose) 15 gm Q15M PRN BUCCAL DECREASED GLUCOSE; Start 09/20/18 at 16:30 Acetaminophen (Tylenol Tab) 650 mg Q6H PRN PO MILD PAIN(1-3)OR ELEVATED TEMP [place] st administered on 09/21/18at 05:23; Admin Dose 650 MG; Start 09/21/18 at 05:30 Cefepime HCl 50 ml @ 100 mls/hr DAILY IVPB Last administered on 09/26/18 08:59; Admin Dose 100 MLS/HR; Start 09/21/18 at 09:30 Albuterol (Proventil 0.083% (Neb)) 2.5 mg Q6H RESP THERAPY PRN HHN SHORTNESS OF BREATH Last administered on 09/24/18 11:13; Admin Dose 2.5 MG; Start 09/22/18 at 02:00 Apixaban (Eliquis) 2.5 mg BID PO Last administered on 09/26/18 08:59; Admin Dose 2.5 MG; Start 09/22/18 at 21:00 Nystatin (Nystatin Powder) 1 applic TID TOP Last administered on 09/26/18 12:45; Admin Dose 1 APPLIC; Start 09/22/18 at 14:00 Lorazepam (Ativan) 0.25 mg Q24H PRN IV agitation Last administered on 09/26/18 03:37; Admin Dose 0.25 MG; Start 09/22/18 at 16:00 Heparin Sodium (Porcine) (Heparin (1000 Units/ml)) 6,100 unit AFTER DIALYSIS CATHETER Last administered on 09/26/18 01:08; Admin Dose 6,100 UNIT; Start 09/26/18 at 00:30 NABIL ALBRECHT Sep 26, 2018 14:54
--- NOTE | 2018-09-26 14:57 | CONS ---
Assessment/Plan Assessment/Plan Hospital Course (Demo Recall) Awake looks comfortable no fevers overnight Antimicrobials: Cefepime Indwelling: Left IJ Juan Chest x-ray on admission revealed increased perihilar bronchovascular markings. Hazy infiltrates at the right lung base with small right pleural effusion Physical examination: Well-developed ill-appearing elderly woman who is in no distress. Head atraumatic normocephalic neck is supple chest rise symmetrical breath sounds diminished bases heart S1-S2 abdomen soft bowel sounds present ext remities without cyanosis Assessment: 1. Sepsis, present on admission 2. Right lower lobe infiltrate pneumonia 3. End-stage renal disease, hemodialysis dependent 4. Acute on chronic CHF 5. Chronic atrial fibrillation 6. Diabetes 7. Hypertension Plan: Patient is clinically stable, dc antibiotics and observe Consultation Date/Type/Reason Admit Date/Time Sep 21, 2018 at 09:10 Initial Consult Date 09/21/18 Type of Consult id Requesting Provider: STEVE REN DO Date/Time of Note DATE: 09/26/18 TIME: 14:56 Exam/Review of Systems Exam Vitals Vital Signs Date Temp Pulse Resp B/P (MAP) Pulse Ox O2 O2 Flow FiO2 Time Delivery Rate 09/26/18 73 12:06 09/26/18 98.1 19 112/59 96 Room Air 11:19 (76) 09/26/18 2.0 01:48 Intake and Output 09/25/18 09/25/18 09/26/18 1515:00 23:00 07:00 IntakeIntake Total 50 ml 600 ml OutputOutput Total 1400 ml BalanceBalance 50 ml 600 ml -1400 ml Results Result Diagram: 09/25/18 0538 09/25/18 0538 Results 24hrs Laboratory Tests Test 09/25/18 18:06 09/25/18 20:26 09/26/18 02:45 09/26/18 08:58 Bedside Glucose 142 129 143 118 Test 09/26/18 12:44 Bedside Glucose 119 Medications Medication Current Medications Amlodipine Besylate (Norvasc) 5 mg BID PO Last administered on 09/26/18at 09:00; Admin Dose 5 MG; Start 09/20/18 at 21:00 Atorvastatin Calcium (Lipitor) 40 mg DAILY@21 PO Last administered on 09/26/18at 02:38; Admin Dose 40 MG; Start 09/20/18 at 21:00 Lisinopril (Zestril) 20 mg BID PO Last administered on 09/26/18at 09:03; Admin Dose 20 MG; Start 09/20/18 at 21:00 Metoprolol Tartrate (Lopressor) 50 mg BID PO Last administered on 09/26/18at 09:00; Admin Dose 50 MG; Start 09/20/18 at 21:00 Diagnostic Test (Pha) (Accu-Chek) 1 ea 02 XX ; Start 09/21/18 at 02:00 Insulin Aspart (Novolog Insulin Pen) NOVOLOG *MILD* ALGORITHM WITH MEALS BEDTIME SC Last administered on 09/25/18at 18:10; Admin Dose 1 UNIT; Start 09/20/18 at 18:00 Miscellaneous Information 1 ea NOTE XX ; Start 09/20/18 at 16:30 Glucose (Glutose) 15 gm Q15M PRN PO DECREASED GLUCOSE; Start 09/20/18 at 16:30 Glucose (Glutose) 22.5 gm Q15M PRN PO DECREASED GLUCOSE; Start 09/20/18 at 16:30 Dextrose (D50w Syringe) 25 ml Q15M PRN IV DECREASED GLUCOSE; Start 09/20/18 at 16:30 Dextrose (D50w Syringe) 50 ml Q15M PRN IV DECREASED GLUCOSE; Start 09/20/18 at 16:30 Glucagon (Glucagen) 1 mg Q15M PRN IM DECREASED GLUCOSE; Start 09/20/18 at 16:30 Glucose (Glutose) 15 gm Q15M PRN BUCCAL DECREASED GLUCOSE; Start 09/20/18 at 16:30 Acetaminophen (Tylenol Tab) 650 mg Q6H PRN PO MILD PAIN(1-3)OR ELEVATED TEMP Last administered on 09/21/18at 05:23; Admin Dose 650 MG; Start 09/21/18 at 05:30 Cefepime HCl 50 ml @ 100 mls/hr DAILY IVPB Last administered on 09/26/18at 08:59; Admin Dose 100 MLS/HR; Start 09/21/18 at 09:30 Albuterol (Proventil 0.083% (Neb)) 2.5 mg Q6H RESP THERAPY PRN HHN SHORTNESS OF BREATH Last administered on 09/24/18at 11:13; Admin Dose 2.5 MG; Start 09/22/18 at 02:00 Apixaban (Eliquis) 2.5 mg BID PO Last administered on 09/26/18 08:59; Admin Dose 2.5 MG; Start 09/22/18 at 21:00 Nystatin (Nystatin Powder) 1 applic TID TOP Last administered on 09/26/18 12:45; Admin Dose 1 APPLIC; Start 09/22/18 at 14:00 Lorazepam (Ativan) 0.25 mg Q24H PRN IV agitation Last administered on 09/26/18 03:37; Admin Dose 0.25 MG; Start 09/22/18 at 16:00 Heparin Sodium (Porcine) (Heparin (1000 Units/ml)) 6,100 unit AFTER DIALYSIS CATHETER Last administered on 09/26/18 01:08; Admin Dose 6,100 UNIT; Start 09/26/18 at 00:30 EVY DEJESUS NP Sep 26, 2018 14:57
[2018-09-27] VITALS (24 sets, daily range): BP systolic 85–168; BP diastolic 44–93; PULSE 68–101; RESP 18–20
[2018-09-27] MEDS: ACCU-CHEK XX SCH (02:00)
[2018-09-27] MEDS: INSULIN ASPART [NOVOLOG] 3 ML PEN SC SCH ×2 (07:59→12:00)
[2018-09-27] MEDS: METOPROLOL 50 MG TAB PO SCH (08:41)
[2018-09-27] MEDS: AMLODIPINE 5 MG TAB PO SCH (08:41)
[2018-09-27] MEDS: LISINOPRIL 20 MG TAB PO SCH (08:42)
[2018-09-27] MEDS: NYSTATIN 30 GM POWDER BTL TOP SCH ×2 (09:00→12:41)
[2018-09-27] MEDS: APIXABAN 5 MG TABLET PO SCH (09:00)
--- NOTE | 2018-09-27 10:05 | CONS ---
Assessment/Plan Assessment/Plan Hospital Course (Demo Recall) Acute on chronic diastolic heart failure: EF preserved as of 06/2018. 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 Now improved after HD Fever: possible UTI vs PNA. Cultures negative Chronic afib: on Eliquis. Rates controlled H/o CVA: 01/26 s/p lytics and transferred to [facility] for thrombectomy. In setting of afib diagnosis, likely was cardioembolic ESRD on HD: s/p left femoral HD cath as pt pulled out her left IJ cath CAD: unknown details DM HTN Dementia -eliquis 2.5mg BID -metoprolol 50mg PO BID -amlodipine 5mg BID -lisinopril 20mg BID -lipitor 40mg -HD for volume management Consultation Date/Type/Reason Admit Date/Time Sep 21, 2018 at 09:10 Initial Consult Date 09/21/18 Type of Consult Cardiology Requesting Provider: STEVE REN DO Date/Time of Note DATE: 09/27/18 TIME: 10:04 24 HR Interval Summary Free Text/Dictation Being evaluated for rehab transfer. Alert and without symptoms today Exam/Review of Systems Vital Signs Vitals Vital Signs Date Temp Pulse Resp B/P (MAP) Pulse Ox O2 O2 Flow FiO2 Time Delivery Rate 09/27/18 89 08:11 09/27/18 98.1 19 117/55 98 Room Air 07:24 (75) 09/26/18 2.0 01:48 Intake and Output 09/26/18 09/26/18 09/27/18 1515:00 23:00 07:00 IntakeIntake Total 50 ml BalanceBalance 50 ml Exam Constitutional: alert; No distress Psych: no complaints, nl mood/affect, confusion Neck: No jvd Respiratory: clear to auscultation; No crackles/rales Cardiovascular: systolic murmur (2/6 CURT); No regular rate and rhythm, No edema Gastrointestinal: soft, non-tender Neurological: nl mental status, nl speech Labs Result Diagram: 09/25/18 0538 09/25/18 0538 Results 24hrs Laboratory Tests Test 09/26/18 12:44 09/26/18 18:11 09/26/18 20:38 09/27/18 04:38 Bedside Glucose 119 111 118 145 Test 09/27/18 07:54 Bedside Glucose 136 Medications Medications Current Medications Amlodipine Besylate (Norvasc) 5 mg BID PO Last administered on 09/26/18at 21:16; Admin Dose 5 MG; Start 09/20/18 at 21:00 Atorvastatin Calcium (Lipitor) 40 mg DAILY@21 PO Last administered on 09/26/18at 21:12; Admin Dose 40 MG; Start 09/20/18 at 21:00 Lisinopril (Zestril) 20 mg BID PO Last administered on 09/26/18at 21:13; Admin Dose 20 MG; Start 09/20/18 at 21:00 Metoprolol Tartrate (Lopressor) 50 mg BID PO Last administered on 09/26/18at 21:15; Admin Dose 50 MG; Start 09/20/18 at 21:00 Diagnostic Test (Pha) (Accu-Chek) 1 ea 02 XX ; Start 09/21/18 at 02:00 Insulin Aspart (Novolog Insulin Pen) NOVOLOG *MILD* ALGORITHM WITH MEALS BEDTIME SC Last administered on 09/25/18at 18:10; Admin Dose 1 UNIT; Start 09/20/18 at 18:00 Miscellaneous Information 1 ea NOTE XX ; Start 09/20/18 at 16:30 Glucose (Glutose) 15 gm Q15M PRN PO DECREASED GLUCOSE; Start 09/20/18 at 16:30 Glucose (Glutose) 22.5 gm Q15M PRN PO DECREASED GLUCOSE; Start 09/20/18 at 16:30 Dextrose (D50w Syringe) 25 ml Q15M PRN IV DECREASED GLUCOSE; Start 09/20/18 at 16:30 Dextrose (D50w Syringe) 50 ml Q15M PRN IV DECREASED GLUCOSE; Start 09/20/18 at 16:30 Glucagon (Glucagen) 1 mg Q15M PRN IM DECREASED GLUCOSE; Start 09/20/18 at 16:30 Glucose (Glutose) 15 gm Q15M PRN BUCCAL DECREASED GLUCOSE; Start 09/20/18 at 16:30 Acetaminophen (Tylenol Tab) 650 mg Q6H PRN PO MILD PAIN(1-3)OR ELEVATED TEMP Last administered on 09/21/18at 05:23; Admin Dose 650 MG; Start 09/21/18 at 05:30 Albuterol (Proventil 0.083% (Neb)) 2.5 mg Q6H RESP THERAPY PRN HHN SHORTNESS OF BREATH Last administered on 09/24/18 11:13; Admin Dose 2.5 MG; Start 09/22/18 at 02:00 Apixaban (Eliquis) 2.5 mg BID PO Last administered on 09/26/18 21:12; Admin Dose 2.5 MG; Start 09/22/18 at 21:00 Nystatin (Nystatin Powder) 1 applic TID TOP Last administered on 09/26/18 21:00; Admin Dose 1 APPLIC; Start 09/22/18 at 14:00 Lorazepam (Ativan) 0.25 mg Q24H PRN IV agitation Last administered on 09/26/18 03:37; Admin Dose 0.25 MG; Start 09/22/18 at 16:00 Heparin Sodium (Porcine) (Heparin (1000 Units/ml)) 6,100 unit AFTER DIALYSIS CATHETER Last administered on 09/26/18 01:08; Admin Dose 6,100 UNIT; Start 09/26/18 at 00:30 NABIL ALBRECHT Sep 27, 2018 10:05
[2018-09-27] MEDS: ACETAMINOPHEN 325 MG TAB PO PRN (10:53)
--- NOTE | 2018-09-27 11:32 | DS ---
DATE OF ADMISSION: 09/21/2018 DATE OF DISCHARGE: HOSPITAL COURSE: This is a 78-year-old female with a past medical history of end-stage renal disease , history of atrial fibrillation, history of diabetes, history of hypertension, history of CVA, histo ry of advanced dementia, history of mineral bone disorder. hospital with shortness of breath. The patient was subsequently admitted, noted to have pulmonary congestion and edema. In terms of re spiratory failure, the patient was treated with aggressive dialysis with ultrafiltration with resolut ion of her shortness of breath. The patient currently is saturating 96% on room air. Additionally, during the hospital course, the patient pulled out her PermCath. A temporary catheter was placed, an d a repeat PermCath was placed by Dr. Meredith. The patient's catheter is working appropriately. T he patient during the hospital course also noted to have encephalopathy, which has been stable. The patient has returned back to her previous mental status, which at baseline is demented. The patient' s other issues on admission noted to have fever. The patient was treated with IV antibiotics, was se en by infectious disease. The patient completed a 6-day course with resolution of her symptoms. The etiology of her fever was felt to be secondary to pneumonia, which has clinically improved. The pat ient's other medical problems including hypertension, mineral bone disorder, atrial fibrillation, cor onary artery disease, diabetes have been stable. 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 Martínez. At the time of discharge, the patient is stable, no acute distress. FINAL DIAGNOSES: 1. Acute respiratory failure secondary to volume overload, resolved. 2. Systemic inflammatory response system (SIRS) secondary to pneumonia, possible urinary tract infec tion (UTI), resolved. 3. End-stage renal disease. 4. Anemia. 5. Mineral bone disorder. 6. Hypertension. 7. History of cerebrovascular accident. 8. Encephalopathy. 9. Dementia. 10. Diabetes. 11. Gastrointestinal (GI) and deep venous thrombosis (DVT) prophylaxis. FINAL MEDICATIONS: The patient will be discharged on: 1. Eliquis. 2. Metoprolol. 3. Amlodipine. 4. Lisinopril. 5. Lipitor. Please see final reconciliation for medications. DISCHARGE DISPOSITION: At the time of discharge, the patient is stable, in no acute distress. Dictated By: STEVE REN DO NR/ILSA Conf#: [id number] DID#: [id number] CC: QUAN THORNE MD;*EndCC*
[2018-09-27] MEDS ORDERED: ALBUMIN HUMAN 25% 100 ML IV PRN (12:30)
--- NOTE | 2018-09-27 12:31 | PN ---
DATE: 09/27/2018 SUBJECTIVE: The patient yesterday underwent a physical therapy evaluation. The patient was markedly debilitated and unable to be discharged home. No other acute events noted overnight. No hemoptysis , hematemesis or hematochezia. OBJECTIVE: VITAL SIGNS: Blood pressure is 117/55, respirations 19, pulse 85, temperature 98.1. HEENT: Head is normocephalic. NECK: Supple. HEART: Regular rate. LUNGS: Show diminished breath sounds at the base. ABDOMEN: Soft, nontender to palpation without rebound or guarding. EXTREMITIES: Negative for clubbing, cyanosis, no edema. DERMATOLOGIC: No rashes. MUSCULOSKELETAL: No joint effusion. NEUROLOGIC: No change in exam. MEDICATIONS: The patient's medications have been reviewed. LABORATORY DATA: Has been reviewed. IMAGING STUDIES: Have been reviewed. ASSESSMENT AND PLAN: 1. Acute hypoxic respiratory failure, improved. Etiology is secondary to volume overload. Possible pneumonia. The patient is currently off oxygen. Continue to monitor. 2. Sepsis secondary to UTI. Possible pneumonia. The patient has completed an antibiotic course. C ontinue to monitor. 3. End-stage renal disease. The patient had hemodialysis yesterday and tolerated it will. Will alfredo n for dialysis again today. 4. Anemia. Monitor hemoglobin and hematocrit levels. 5. Mineral bone disorder. Monitor calcium and phosphorus levels. 6. Hypertension. Continue current blood pressure regimen. 7. Atrial fibrillation. Currently, rate controlled. Continue medical management. 8. Coronary artery disease. Continue current plan. 9. History of cerebrovascular accident. 10. Diabetes, continue current insulin regimen. 11. Acute encephalopathy, etiology is toxic metabolic. 12. Dementia. Continue to monitor. 13. Gastrointestinal and deep vein thrombosis prophylaxis. 14. Debility. Physical therapy consult has been placed. DISPOSITION: We will place an evaluation for acute rehabilitation. Dictated By: STEVE MONCADA/NTS Conf#: [id number] DID#: [id number] CC: QUAN THORNE MD;*EndCC*
[2018-09-27] MEDS: HEPARIN 1000 UNITS/ML 10 ML INJ CATHETER SCH (14:22)
--- NOTE | 2018-09-27 15:21 | CONS ---
Assessment/Plan Assessment/Plan Hospital Course (Demo Recall) 1300 no acute changes overnight patient is in hemodialysis son at bedside Antimicrobials: s/p Cefepime Indwelling: fem Juan Chest x-ray on admission revealed increased perihilar bronchovascular markings. Hazy infiltrates at the right lung base with small right pleural effusion Physical examination: Well-developed ill-appearing elderly woman who is in no distress. Head atraumatic normocephalic neck is supple chest rise symmetrical breath sounds diminished bases heart S1-S2 abdomen soft bowel sounds present extremities without cyanosis Assessment: 1. S/p sepsis, present on admission 2. Right lower lobe infiltrate ? pneumonia 3. End-stage renal disease, hemodialysis dependent 4. Acute on chronic CHF 5. Chronic atrial fibrillation 6. Diabetes 7. Hypertension Plan: Remains unchanged, stable off antibiotics, son wants to take her home Consultation Date/Type/Reason Admit Date/Time Sep 21, 2018 at 09:10 Initial Consult Date 09/21/18 Type of Consult id Requesting Provider: STEVE REN DO Date/Time of Note DATE: 09/27/18 TIME: 15:20 Exam/Review of Systems Exam Vitals Vital Signs Date Temp Pulse Resp B/P (MAP) Pulse Ox O2 O2 Flow FiO2 Time Delivery Rate 09/27/18 93 14:05 09/27/18 97.9 20 125/75 97 Room Air 11:23 (92) 09/26/18 2.0 01:48 Intake and Output 09/26/18 09/26/18 09/27/18 1515:00 23:00 07:00 IntakeIntake Total 50 ml BalanceBalance 50 ml Results Result Diagram: 09/25/18 0538 09/25/18 0538 Results 24hrs Laboratory Tests Test 09/26/18 18:11 09/26/18 20:38 09/27/18 04:38 09/27/18 07:54 Bedside Glucose 111 118 145 136 Test 09/27/18 12:39 Bedside Glucose 118 Medications Medication Current Medications Amlodipine Besylate (Norvasc) 5 mg BID PO Last administered on 09/26/18at 21:16; Admin Dose 5 MG; Start 09/20/18 at 21:00 Atorvastatin Calcium (Lipitor) 40 mg DAILY@21 PO Last administered on 09/26/18at 21:12; Admin Dose 40 MG; Start 09/20/18 at 21:00 Lisinopril (Zestril) 20 mg BID PO Last administered on 09/26/18at 21:13; Admin Dose 20 MG; Start 09/20/18 at 21:00 Metoprolol Tartrate (Lopressor) 50 mg BID PO Last administered on 09/26/18at 21:15; Admin Dose 50 MG; Start 09/20/18 at 21:00 Diagnostic Test (Pha) (Accu-Chek) 1 ea 02 XX ; Start 09/21/18 at 02:00 Insulin Aspart (Novolog Insulin Pen) NOVOLOG *MILD* ALGORITHM WITH MEALS BEDTIME SC Last administered on 09/25/18at 18:10; Admin Dose 1 UNIT; Start 09/20/18 at 18:00 Miscellaneous Information 1 ea NOTE XX ; Start 09/20/18 at 16:30 Glucose (Glutose) 15 gm Q15M PRN PO DECREASED GLUCOSE; Start 09/20/18 at 16:30 Glucose (Glutose) 22.5 gm Q15M PRN PO DECREASED GLUCOSE; Start 09/20/18 at 16:30 Dextrose (D50w Syringe) 25 ml Q15M PRN IV DECREASED GLUCOSE; Start 09/20/18 at 16:30 Dextrose (D50w Syringe) 50 ml Q15M PRN IV DECREASED GLUCOSE; Start 09/20/18 at 16:30 Glucagon (Glucagen) 1 mg Q15M PRN IM DECREASED GLUCOSE; Start 09/20/18 at 16:30 Glucose (Glutose) 15 gm Q15M PRN BUCCAL DECREASED GLUCOSE; Start 09/20/18 at 16:30 Acetaminophen (Tylenol Tab) 650 mg Q6H PRN PO MILD PAIN(1-3)OR ELEVATED TEMP La st administered on 09/27/18at 10:53; Admin Dose 650 MG; Start 09/21/18 at 05:30 Albuterol (Proventil 0.083% (Neb)) 2.5 mg Q6H RESP THERAPY PRN HHN SHORTNESS OF BREATH Last administered on 09/24/18at 11:13; Admin Dose 2.5 MG; Start 09/22/18 at 02:00 Apixaban (Eliquis) 2.5 mg BID PO Last administered on 09/27/18at 09:00; Admin Dose 2.5 MG; Start 09/22/18 at 21:00 Nystatin (Nystatin Powder) 1 applic TID TOP Last administered on 09/27/18 12:41; Admin Dose 1 APPLIC; Start 09/22/18 at 14:00 Lorazepam (Ativan) 0.25 mg Q24H PRN IV agitation Last administered on 09/26/18 03:37; Admin Dose 0.25 MG; Start 09/22/18 at 16:00 Heparin Sodium (Porcine) (Heparin (1000 Units/ml)) 6,100 unit AFTER DIALYSIS CATHETER Last administered on 09/27/18 14:22; Admin Dose 6,100 UNIT; Start 09/26/18 at 00:30 Albumin Human 100 ml @ 100 mls/hr WITH DIALYSIS PRN IV SBP <90 DURING DIALYSIS Last administered on 09/27/18 12:18; Admin Dose 100 MLS/HR; Start 09/27/18 at 12:30 EVY DEJESUS NP Sep 27, 2018 15:21
== END 2018-09-27 17:30 | disposition home health service (06) | DRG 871 ==
LOC: E/R 23:16 → 6WM 09-20 01:09 → OBSVTOIN 09-21 09:10
PROVIDERS: ADMIT Internal Medicine; ATTEND Internal Medicine
PROC: 5A1D70Z Performance of Urinary Filtration, Intermittent, Less than 6 Hours Per Day (ICD-10-PCS; 2018-09-20)
PROC: 5A1D70Z Performance of Urinary Filtration, Intermittent, Less than 6 Hours Per Day (ICD-10-PCS; 2018-09-21)
PROC: B513YZA Fluoroscopy of Right Jugular Veins using Other Contrast, Guidance (ICD-10-PCS; 2018-09-22)
PROC: 02H633Z Insertion of Infusion Device into Right Atrium, Percutaneous Approach (ICD-10-PCS; 2018-09-22)
PROC: B244YZZ Ultrasonography of Right Heart using Other Contrast (ICD-10-PCS; 2018-09-22)
PROC: 05HM33Z Insertion of Infusion Device into Right Internal Jugular Vein, Percutaneous Approach (ICD-10-PCS; principal; 2018-09-22 17:00)
PROC: 5A1D70Z Performance of Urinary Filtration, Intermittent, Less than 6 Hours Per Day (ICD-10-PCS; 2018-09-23)
PROC: 0JHM3XZ Insertion of Tunneled Vascular Access Device into Left Upper Leg Subcutaneous Tissue and Fascia, Percutaneous Approach (ICD-10-PCS; 2018-09-25)
PROC: 06H033Z Insertion of Infusion Device into Inferior Vena Cava, Percutaneous Approach (ICD-10-PCS; 2018-09-25)
PROC: B519YZA Fluoroscopy of Inferior Vena Cava using Other Contrast, Guidance (ICD-10-PCS; 2018-09-25)
PROC: B549ZZA Ultrasonography of Inferior Vena Cava, Guidance (ICD-10-PCS; 2018-09-25)
PROC: 5A1D70Z Performance of Urinary Filtration, Intermittent, Less than 6 Hours Per Day (ICD-10-PCS; 2018-09-25)
PROC: 5A1D70Z Performance of Urinary Filtration, Intermittent, Less than 6 Hours Per Day (ICD-10-PCS; 2018-09-27)
DX: A41.9 Sepsis, unspecified organism (principal); N18.6 End stage renal disease; J96.01 Acute respiratory failure with hypoxia; G92 Toxic encephalopathy; I50.33 Acute on chronic diastolic (congestive) heart failure; J18.9 Pneumonia, unspecified organism; I13.2 Hypertensive heart and chronic kidney disease with heart failure and with stage 5 chronic kidney disease, or end stage renal disease; E87.1 Hypo-osmolality and hyponatremia; N39.0 Urinary tract infection, site not specified; E85.4 Organ-limited amyloidosis; I43 Cardiomyopathy in diseases classified elsewhere; E87.0 Hyperosmolality and hypernatremia; E11.22 Type 2 diabetes mellitus with diabetic chronic kidney disease; I48.2 Chronic atrial fibrillation; D64.9 Anemia, unspecified; F03.90 Unspecified dementia, unspecified severity, without behavioral disturbance, psychotic disturbance, mood disturbance, and anxiety; I25.10 Atherosclerotic heart disease of native coronary artery without angina pectoris; Z79.4 Long term (current) use of insulin; Z79.02 Long term (current) use of antithrombotics/antiplatelets; Z99.2 Dependence on renal dialysis; Z86.73 Personal history of transient ischemic attack (TIA), and cerebral infarction without residual deficits
CPT/HCPCS: 36415; 71045; 76937; 80048; 80053; 81001; 82962; 83036; 83605; 83735; 83880; 84100; 84145; 84484; 85025; 85610; 85730; 87086; 87340; 90935; 92526; 92610; 93005; 94640; 94664; 97163; 97530; G0378; A4310; C1752; J0692; J1630; J1644; J1815; J2060; J2997; P9047

== ENCOUNTER 2018-11-01 05:17 | Observation (INO) | payer MEDICARE, OTHER ==
[~2018-11-01] VITALS: Ht 152.4 cm; Wt 85.7 kg
[2018-11-01] VITALS (19 sets, daily range): BP systolic 88–187; BP diastolic 57–86; PULSE 65–83; RESP 17–19; Ht 152.4 cm; Wt 85.7 kg
[~2018-11-01 05:17] MED LIST changes: -ERGO500013 PO; -FURO40TA4 PO; -ICOS1CAP PO; -NATE120T PO
--- NOTE | 2018-11-01 06:09 | ERD ---
ER Documentation Chief Complaint Chief Complaint bib ra from home for sob upon exacerbation caused by movement HPI 78-year-old female with a history of CAD, A. fib, hypertension, ESRD presenting to the ER from home by ambulance for shortness of breath with minimal exertion. Her symptoms started yesterday. She also complains of bilateral lower extremity swelling. She was due for dialysis today. Last dialysis was 2 days ago. She denies any associated chest pain. She was here in this hospital admitted about 1 month ago for similar symptoms and required emergent dialysis at that time. She does normally urinate. She also complains of itching in her groin and that has been going on for quite some time. ROS All systems reviewed and are negative except as per history of present illness. Medications Home Meds Reported Medications Rosuvastatin Calcium* (Crestor*) 10 Mg Tablet, 10 MG PO QHS, #30 TAB 05/24/18 Rivastigmine* Patch (Exelon* Patch) 4.6 Mg/24 Hr Patch.td24, 1 PATCH TD DAILY, PATCH 05/24/18 Amlodipine Besylate* (Norvasc*) 5 Mg Tablet, 5 MG PO BID, TAB 05/24/18 Allergies Allergies: Coded Allergies: chicken derived (Verified Allergy, Unknown, RASH, 06/19/18) PMhx/Soc History of Surgery: Yes (Kidney tumor removal) Anesthesia Reaction: No Hx Neurological Disorder: No Hx Respiratory Disorders: Yes (fluids in the lungs) Hx Cardiac Disorders: Yes (Heart attack, stents 1994) Hx Psychiatric Problems: No Hx Miscellaneous Medical Probl: Yes (Dementia, ESRD, Afib, DM, HTN, CAD) Hx Alcohol Use: No Hx Substance Use: No Hx Tobacco Use: No Smoking Status: Never smoker FmHx Family History: No diabetes Physical Exam Vitals Vital Signs Date Temp Pulse Resp B/P (MAP) Pulse Ox O2 O2 Flow FiO2 Time Delivery Rate 11/01/18 70 16 157/78 98 Nasal 2.0 06:30 (104) Cannula 11/01/18 60 16 156/73 95 Room Air 06:11 (100) 11/01/18 Nasal 05:44 Cannula 11/01/18 98.6 71 19 144/77 100 05:32 (99) Physical Exam Const: Mild distress due to shortness of breath. Able to speak in full sentences. No diaphoresis Head: Atraumatic Eyes: Normal Conjunctiva ENT: Dry mucous membranes. Normal External Ears, Nose and Mouth. Neck: Full range of motion. No meningismus. Resp: diminished at the bases with crackles Cardio: Irregularly irregular rhythm with normal rate, no murmurs Abd: Soft, non tender, non distended. Normal bowel sounds Skin: Erythematous rash in bilateral groins with some skin breakdown Back: No midline or flank tenderness Ext: No cyanosis, 2+ bilateral lower extremity pitting edema, symmetric, no Neur: Awake and alert, strength grossly intact but exam limited by effort Psych: Normal Mood and Affect Result Diagram: 11/01/18 0608 11/01/18 0608 Results 24 hrs Laboratory Tests Test 11/01/18 06:08 White Blood Count 7.9 10^3/ul Red Blood Count 3.22 10^6/ul Hemoglobin 9.3 g/dl Hematocrit 31.0 % Mean Corpuscular Volume 96.3 fl Mean Corpuscular Hemoglobin 28.9 pg Mean Corpuscular Hemoglobin Concent 30.0 g/dl Red Cell Distribution Width 14.7 % Platelet Count 241 10^3/UL Mean Platelet Volume 10.1 fl Immature Granulocytes % 0.500 % Neutrophils % 76.3 % Lymphocytes % 13.8 % Monocytes % 6.6 % Eosinophils % 2.5 % Basophils % 0.3 % Nucleated Red Blood Cells % 0.0 /100WBC Immature Granulocytes # 0.040 10^3/ul Neutrophils # 6.1 10^3/ul Lymphocytes # 1.1 10^3/ul Monocytes # 0.5 10^3/ul Eosinophils # 0.2 10^3/ul Basophils # 0.0 10^3/ul Nucleated Red Blood Cells # 0.0 10^3/ul Prothrombin Time 14.2 Sec Prothrombin Time Ratio 1.1 INR International Normalized Ratio 1.09 Activated Partial Thromboplast Time 30.5 Sec Sodium Level 139 mmol/L Potassium Level 5.8 mmol/L Chloride Level 104 mmol/L Carbon Dioxide Level 26 mmol/L Anion Gap 9 Blood Urea Nitrogen 55 mg/dl Creatinine 4.20 mg/dl Est Glomerular Filtrat Rate mL/min mL/min Glucose Level 93 mg/dl Calcium Level 10.4 mg/dl Total Bilirubin 0.3 mg/dl Direct Bilirubin 0.00 mg/dl Indirect Bilirubin 0.3 mg/dl Aspartate Amino Transf (AST/SGOT) 31 IU/L Alanine Aminotransferase (ALT/SGPT) 15 IU/L Alkaline Phosphatase 65 IU/L Troponin I 0.016 ng/ml B-Type Natriuretic Peptide 18915 PG/ML Total Protein 7.3 g/dl Albumin 3.8 g/dl Globulin 3.50 g/dl Albumin/Globulin Ratio 1.08 Current Medications Medications Dose Sig/Tawana Start Time Status Last (Trade) Ordered Route PRN Stop Time Admin Dose Reason Admin Ondansetron 4 mg ER BRIDGE 11/01/18 HCl (Zofran PRN IV 07:00 Inj) NAUSEA/VOMITI 11/02/18 06:59 NG 650 mg ER BRIDGE 11/01/18 Acetaminophen PRN PO 07:00 (Tylenol .MILD PAIN 11/02/18 06:59 Tab) 1-3 OR TEMP 25 mg ONCE ONCE 11/01/18 11/01/18 Diphenhydrami PO 07:00 06:59 ne HCl 11/01/18 07:01 (Benadryl) Nystatin 1 applic ONCE ONCE 11/01/18 11/01/18 (Nystatin TOP 07:00 06:59 Powder) 11/01/18 07:01 Procedures/MDM EMERGENT LABS AND DIAGNOSTIC STUDIES: Lab Results above were reviewed and interpreted by me. CBC: Mild anemia, likely secondary to chronic disease BMP: elevated BUN and creatinine, consistent with history of ESRD. Hyperkalemic at 5.8. no evidence of acidosis, hypoglycemia Troponin within normal limits, not indicative of cardiac ischemia 12-lead EKG was interpreted by Leti Patterson MD: Atrial fibrillation with ventricular rate of 66 beats per minute Normal axis left axis deviation Normal intervals Anterior Q waves with no evidence of old anteroseptal infarct No acute ST or T wave changes suggestive of acute ischemia or STEMI. Radiology Results as interpreted by Radiology below were reviewed by Gracia Patterson MD: Chest Xray: 1. Mild cardiomegaly with probable mild pulmonary vascular congestion. 2. Bilateral small pleural effusions. 3. Opacities at the lung bases may all be due to atelectasis technique and scarring. Basilar infiltrates cannot be excluded. Initial Nursing notes reviewed. Previous Medical Records requested via the Electronic Health Record. EMERGENCY DEPARTMENT COURSE / MEDICAL DECISION MAKING: Patient presents short of breath with hypoxia on room air to 93%. Patient's symptoms is concerning for acute decompensation of CHF and will require i npatient workup and monitoring. She will likely need urgent dialysis for her fluid overload seen on chest Xray. Further w/u for ischemia, arrhythmia, PE or dissection will be deferred to the inpatient team. Critical Care Time: 32 minutes Treatments/Evaluations: Close monitoring and treatment of unstable vital signs, cardiorespiratory, and neurologic status, while maintaining tight balance of fl uid, respiratory, and cardiac interventions. This time includes discussing the case with the patient and the patients family. This time does not include all procedures stated elsewhere in this record. This time also includes reviewing old records, labs and radiological studies. This time includes examining and re- examining the patient. Additionally, this time also includes arranging care with admitting and consulting physicians. Accepting Care Team: Current data and ongoing care discussed. Time: Time of admission Primary Provider: Dr. Josue Mckeon Consulting: none Outstanding Data: none Departure Diagnosis: Primary Impression: Acute respiratory failure with hypoxia Additional Impressions: Fluid overload Hypervolemia type: unspecified Qualified Codes: E87.70 - Fluid overload, unspecified Hyperkalemia Joseline rash of groin Condition: ALEXANDER Walton MD Nov 01, 2018 06:09
[2018-11-01] MEDS ORDERED: DIPHENHYDRAMINE 25 MG CAP PO ONE (07:00)
[2018-11-01] MEDS ORDERED: ONDANSETRON 4 MG INJ IV PRN ×2 (07:00→11:00)
[2018-11-01] MEDS ORDERED: ACETAMINOPHEN 325 MG TAB PO PRN ×2 (07:00→11:00)
[2018-11-01] MEDS ORDERED: NYSTATIN 30 GM POWDER BTL TOP ONE (07:00)
[2018-11-01] MEDS ORDERED: NATE120T PO (07:07)
[2018-11-01] MEDS ORDERED: FURO40TA4 ORAL (07:07)
[2018-11-01] MEDS ORDERED: LISI-471 ORAL (07:07)
[2018-11-01] MEDS ORDERED: APIX2.5T ORAL (07:07)
[2018-11-01] MEDS ORDERED: SUVO15TA2 ORAL (07:07)
[2018-11-01] MEDS ORDERED: METO-429 ORAL (07:07)
[2018-11-01] MEDS ORDERED: ERGO500013 ORAL (07:07)
[2018-11-01] MEDS ORDERED: DIPH25CA42 ORAL (07:07)
[2018-11-01] MEDS ORDERED: ATOR40TA68 ORAL (07:07)
[2018-11-01] MEDS ORDERED: LORAZEPAM 2 MG INJ IV ONE (08:30)
[2018-11-01] MEDS ORDERED: NACL 0.9% 3 ML SYG IV SCH (11:00)
[2018-11-01] MEDS ORDERED: DIPHENHYDRAMINE 25 MG CAP PO PRN (11:00)
[2018-11-01] MEDS: NATEGLINIDE 120 MG TAB PO SCH ×2 (12:10→17:14)
[2018-11-01] MEDS ORDERED: GLUCOSE GEL 15 GRAM TUBE PO PRN ×2 (13:30)
[2018-11-01] MEDS ORDERED: GLUCAGON 1 MG INJ IM PRN (13:30)
[2018-11-01] MEDS ORDERED: DEXTROSE 50% 50 ML SYRINGE IV PRN ×2 (13:30)
[2018-11-01] MEDS ORDERED: GLUCOSE GEL 15 GRAM TUBE BUCCAL PRN (13:30)
[2018-11-01] MEDS: HEPARIN 1000 UNITS/ML 10 ML INJ CATHETER SCH (15:51)
[2018-11-01] MEDS: INSULIN ASPART [NOVOLOG] 3 ML PEN SC SCH ×2 (17:03→21:00)
--- NOTE | 2018-11-01 18:21 | HP ---
DATE OF ADMISSION: 11/01/2018 HISTORY OF PRESENT ILLNESS: The patient is a 78-year-old female with past medical history of end-sta ge renal disease on hemodialysis, history of AFib, history of diabetes, hypertension, history of CVA, history of dementia, history of mineral bone disorder. Patient presents to [facility] with shortness of breath, increased over the last 24-hour. The patient had previous episodes in the past, specifically last month. The patient was noted to have worsening symptoms with minimal ex ertion and bilateral lower extremity swelling. The patient was due for dialysis today. Last dose wa s 2 days ago, she did have chest pain. The patient had dialysis and is currently on dialysis, dialyz ing via a recently placed femoral catheter which is tunneled but has been having complication. There has been no recent fevers, chills, nausea, vomiting, chest pain, shortness of breath. PAST MEDICAL HISTORY: Significant for the above. MEDICATIONS: From home include: 1. Tylenol. 2. Amlodipine. 3. Lipitor. 4. Benadryl. 5. Ergocalciferol. 6. Furosemide. 7. Lisinopril. 8. Metoprolol. 9. Rivastigmine patch. ALLERGIES: CHICKEN. SOCIAL HISTORY: Does not smoke, drink or use IV drugs. FAMILY HISTORY: History of kidney disease. REVIEW OF SYSTEMS: A 14-point review of systems was attempted and negative, except as in physical ex amination. PHYSICAL EXAMINATION: VITAL SIGNS: Temperature 98, blood pressure 187/81. HEENT: Normocephalic, atraumatic. Pupils round and reactive to light. Oropharynx has moist mucous m embranes. NECK: Supple. HEART: Regular rate and rhythm. LUNGS: Clear to auscultation anteriorly. ABDOMEN: Soft, nontender, nondistended. Bowel sounds present. LABORATORY EVALUATION: White count 7.9, hemoglobin 9.3, hematocrit 31. Sodium is 139, potassium 5.8 , BUN 55, creatinine 4.2. UA is reviewed under microscopy. Chest x-ray reviewed with radiologist. IMPRESSION: 1. End-stage renal disease on hemodialysis currently. Assess daily for dialysis needs. All medicat ions are dosed appropriately, will likely need a second dialysis tomorrow. 2. Respiratory failure, likely related to volume retention from an inadequate dialysis. The patient had dialysis 2 days ago, questionable compliance as well. Will have cardiology to evaluate. We jey l get serial troponins, may need repeat echo. 3. Anemia of chronic kidney disease. Continue Epogen. Check iron stores. 4. Mineral bone disorder. Continue same. Calcium is elevated. Will hold Ergocalciferol, try to se e what the prescription as an outpatient dialysis unit. 5. Diabetes. Continue regular medications and sliding scale. 6. History of catheter problems with recently placed tunneled femoral catheter. We will monitor fun ction while she is here. 7. Deep venous thrombosis prophylaxis. Patient is already on Eliquis, should be well controlled. 8. History of cerebrovascular accident and various vasculopathies. Continue Eliquis, statin antihyp ertensives as above. 9. History of atrial fibrillation on Eliquis, rate controlled, already on a beta gely as well. C ardiology is consulted. Dictated By: QUAN THORNE MD DF/ILSA Conf#: [id number] DID#: [id number]
[2018-11-01] MEDS: ATORVASTATIN 40 MG TAB PO SCH (21:08)
[2018-11-01] MEDS: AMLODIPINE 5 MG TAB PO SCH (21:09)
[2018-11-01] MEDS: LISINOPRIL 20 MG TAB PO SCH (21:09)
[2018-11-01] MEDS: APIXABAN 5 MG TABLET PO SCH (21:09)
[2018-11-01] MEDS: METOPROLOL 50 MG TAB PO SCH (21:15)
[2018-11-01] MEDS: ZOLPIDEM 5 MG TAB PO PRN (23:03)
[2018-11-02] VITALS (7 sets, daily range): BP systolic 127–188; BP diastolic 67–80; PULSE 58–73; RESP 17–19
[2018-11-02] MEDS: ACCU-CHEK XX SCH (02:25)
[2018-11-02] MEDS ORDERED: LORAZEPAM 2 MG INJ IV ONE (05:00)
[2018-11-02] MEDS: INSULIN ASPART [NOVOLOG] 3 ML PEN SC SCH ×4 (07:55→21:00)
[2018-11-02] MEDS: NATEGLINIDE 120 MG TAB PO SCH ×3 (08:34→17:14)
[2018-11-02] MEDS: APIXABAN 5 MG TABLET PO SCH ×2 (08:35→21:38)
[2018-11-02] MEDS: FUROSEMIDE 40 MG TAB PO SCH (08:35)
[2018-11-02] MEDS: AMLODIPINE 5 MG TAB PO SCH ×2 (08:37→21:38)
[2018-11-02] MEDS: METOPROLOL 50 MG TAB PO SCH ×2 (08:37→21:39)
[2018-11-02] MEDS: RIVASTIGMINE 4.6MG/24H PATCH TRANSDERM SCH (08:38)
[2018-11-02] MEDS: LISINOPRIL 20 MG TAB PO SCH ×2 (08:38→21:39)
--- NOTE | 2018-11-02 09:04 | CONS ---
Consult Date/Type/Reason Admit Date/Time Nov 01, 2018 at 06:32 Initial Consult Date Date/Time of Note DATE: 11/02/18 TIME: 08:52 Subjective 78-year-old female with past medical history of end-stage renal disease on hemodialysis, history of AFib, history of diabetes, hypertension, history of CVA, history of dementia, history of mineral bone disorder. Patient presents to [facility] with shortness of breath, increased over the last 24-hour. The patient had previous episodes in the past, specifically last month. The patient was noted to have worsening symptoms with minimal exertion and bilateral lower extremity swelling. dialyzing via a recently placed femoral catheter which is tunneled but has been having complication of poor flow in the past. There has been no recent fevers, chills, nausea, vomiting, chest pain Tolerated hd yesterday. on hd today. still with shortness of breath. PHYSICAL EXAMINATION: HEENT: Normocephalic, atraumatic. Pupils round and reactive to light. Oropharynx has moist mucous membranes. NECK: Supple. HEART: Regular rate and rhythm. LUNGS: Clear to auscultation anteriorly. ABDOMEN: Soft, nontender, nondistended. Bowel sounds present. EXT: 1+ edema bilaterally Objective Vitals Vital Signs Date Temp Pulse Resp B/P (MAP) Pulse Ox O2 O2 Flow FiO2 Time Delivery Rate 11/02/18 73 171/72 08:28 (105) 11/02/18 97.8 17 98 Nasal 08:08 Cannula 11/01/18 2.0 15:45 Intake and Output 11/01/18 11/01/18 11/02/18 1515:00 23:00 07:00 IntakeIntake Total 100 ml OutputOutput Total 200 ml 3700 ml BalanceBalance -200 ml -3600 ml Results/Medications Result Diagram: 11/02/18 0621 11/02/18 0621 Results 24 hrs Laboratory Tests Test 11/01/18 12:09 11/01/18 16:56 11/01/18 21:06 11/02/18 02:09 Bedside Glucose 89 113 89 91 Test 11/02/18 06:21 11/02/18 08:30 White Blood Count 8.5 Red Blood Count 3.57 L Hemoglobin 11.4 #L Hematocrit 35.0 L Mean Corpuscular 98.0 Volume Mean Corpuscular 31.9 Hemoglobin Mean Corpuscular 32.6 Hemoglobin Concent Red Cell 14.7 H Distribution Width Platelet Count 290 # Mean Platelet Volume 9.7 Immature 0.200 Granulocytes % Neutrophils % 78.3 H Lymphocytes % 11.8 L Monocytes % 6.3 Eosinophils % 2.9 Basophils % 0.5 Nucleated Red Blood 0.0 Cells % Immature 0.020 Granulocytes # Neutrophils # 6.7 Lymphocytes # 1.0 Monocytes # 0.5 Eosinophils # 0.3 Basophils # 0.0 Nucleated Red Blood 0.0 Cells # Sodium Level 138 Potassium Level 4.7 Chloride Level 102 Carbon Dioxide Level 24 Anion Gap 12 Blood Urea Nitrogen 37 #H Creatinine 3.60 H Est Glomerular Filtrat Rate mL/min Glucose Level 97 Calcium Level 10.7 H Magnesium Level 1.9 Total Bilirubin 0.4 Direct Bilirubin 0.00 Indirect Bilirubin 0.4 Aspartate Amino 21 Transf (AST/SGOT) Alanine 11 L Aminotransferase (AL T/SGPT) Alkaline Phosphatase 78 Total Protein 8.1 Albumin 4.0 Globulin 4.10 H Albumin/Globulin 0.97 Ratio Bedside Glucose 97 Home Meds Reported Medications Apixaban* (Eliquis*) 2.5 Mg Tablet, 1 TAB ORAL BID 11/01/18 Atorvastatin* (Atorvastatin*) 40 Mg Tablet, 1 TAB ORAL QHS 11/01/18 Metoprolol Tartrate* (Lopressor*) 50 Mg Tab, 1 TAB ORAL BID 11/01/18 Lisinopril* (Lisinopril*) 20 Mg Tablet, 1 TAB ORAL BID 11/01/18 Suvorexant (Belsomra) 15 Mg Tablet, 1 TAB ORAL DAILY 11/01/18 Nateglinide* (Nateglinide*) 120 Mg Tablet, 120 MG PO AC MEALS, TAB 11/01/18 Diphenhydramine Hcl (Banophen) 25 Mg Capsule, 1 CAP ORAL QHS PRN for SLEEP 11/01/18 Furosemide* (Furosemide*) 40 Mg Tablet, 1 TAB ORAL DAILY 11/01/18 Ergocalciferol (Vitamin D2) (VITAMIN D2) 50,000 Unit Capsule, 1 CAP ORAL weekly Thursdays11/01/18 Rivastigmine* Patch (Exelon* Patch) 4.6 Mg/24 Hr Patch.td24, 1 PATCH TD DAILY, PATCH 05/24/18 Amlodipine Besylate* (Norvasc*) 5 Mg Tablet, 5 MG PO BID, TAB 05/24/18 Discontinued Reported Medications Rosuvastatin Calcium* (Crestor*) 10 Mg Tablet, 10 MG PO QHS, #30 TAB 05/24/18 Medications Current Medications Amlodipine Besylate (Norvasc) 5 mg BID PO Last administered on 11/02/18 08:37; Admin Dose 5 MG; Start 11/01/18 at 21:00 Apixaban (Eliquis) 2.5 mg BID PO Last administered on 11/02/18 08:35; Admin Dose 2.5 MG; Start 11/01/18 at 21:00 Atorvastatin Calcium (Lipitor) 40 mg QHS PO Last administered on 11/01/18 21:08; Admin Dose 40 MG; Start 11/01/18 at 21:00 Diphenhydramine HCl (Benadryl) 25 mg QHS PRN PO SLEEP Last administered on 11/01/18 21:08; Admin Dose 25 MG; Start 11/01/18 at 11:00 Furosemide (Lasix) 40 mg DAILY PO Last administered on 11/02/18 08:35; Admin Dose 40 MG; Start 11/02/18 at 09:00 Lisinopril (Zestril) 20 mg BID PO Last administered on 11/02/18 08:38; Admin Dose 20 MG; Start 11/01/18 at 21:00 Metoprolol Tartrate (Lopressor) 50 mg BID PO Last administered on 11/02/18 08:37; Admin Dose 50 MG; Start 11/01/18 at 21:00 Nateglinide (Starlix) 120 mg AC MEALS PO Last administered on 11/02/18 08:34; Admin Dose 120 MG; Start 11/01/18 at 11:20 Rivastigmine Tartrate (Exelon 4.6 Mg/ 24 Hr Patch) 1 patch DAILY TRANSDERM Last administered on 11/02/18 08:38; Admin Dose 1 PATCH; Start 11/02/18 at 09:00 IV Flush (NS 3 ml) 3 ml PER PROTOCOL IV ; Start 11/01/18 at 11:00 Ondansetron HCl (Zofran Inj) 4 mg Q6H PRN IV NAUSEA/VOMITING; Start 11/01/18 at 11:00 Acetaminophen (Tylenol Tab) 650 mg Q6H PRN PO .PAIN 1-3 OR TEMP; Start 11/01/18 at 11:00 Zolpidem Tartrate (Ambien) 5 mg QHS PRN PO .INSOMNIA Last administered on 11/01/18at 23:03; Admin Dose 5 MG; Start 11/01/18 at 11:00 Heparin Sodium (Porcine) (Heparin (1000 Units/ml)) 7,100 unit AFTER DIALYSIS CATHETER Last administered on 11/01/18at 15:51; Admin Dose 7,100 UNIT; Start 11/01/18 at 13:00 Diagnostic Test (Pha) (Accu-Chek) 1 ea 02 XX Last administered on 11/02/18at 02:25; Admin Dose 1 EA; Start 11/02/18 at 02:00 Insulin Aspart (Novolog Insulin Pen) NOVOLOG *MILD* ALGORITHM WITH MEALS BEDTIME SC ; Start 11/01/18 at 17:55 Miscellaneous Information 1 ea NOTE XX ; Start 11/01/18 at 13:30 Glucose (Glutose) 15 gm Q15M PRN PO DECREASED GLUCOSE; Start 11/01/18 at 13:30 Glucose (Glutose) 22.5 gm Q15M PRN PO DECREASED GLUCOSE; Start 11/01/18 at 13 :30 Dextrose (D50w Syringe) 25 ml Q15M PRN IV DECREASED GLUCOSE; Start 11/01/18 at 13:30 Dextrose (D50w Syringe) 50 ml Q15M PRN IV DECREASED GLUCOSE; Start 11/01/18 at 13:30 Glucagon (Glucagen) 1 mg Q15M PRN IM DECREASED GLUCOSE; Start 11/01/18 at 13:30 Glucose (Glutose) 15 gm Q15M PRN BUCCAL DECREASED GLUCOSE; Start 11/01/18 at 13:30 Assessment/Plan Hospital Course (Demo Recall) 1. End-stage renal disease on hemodialysis currently. Assess daily for dialysi s needs. All medications are dosed appropriately, will likely need a second dialysis tomorrow. 2. Respiratory failure, likely related to volume retention from an inadequate dialysis. The patient had dialysis 2 days ago, questionable compliance as well. Will have cardiology to evaluate. We will get serial troponins, may need repeat echo. 3. hypertension- elevated this am. monitor with aggressive hd. already on lisinopril, metoprolol, and norvasc. - consider switching metoprolol to atenolo which is only beta-gely with proof to have mortality benefit in hd. - consider adding aldactone. 4. Mineral bone disorder. Continue same. Calcium is elevated. Will hold Ergocalciferol, try to see what the prescription as an outpatient dialysis unit. 5. Diabetes. Continue regular medications and sliding scale. 6. History of catheter problems with recently placed tunneled femoral catheter. We will monitor function while she is here. 7. Deep venous thrombosis prophylaxis. Patient is already on Eliquis, should be well controlled. 8. History of cerebrovascular accident and various vasculopathies. Continue Eliquis, statin antihypertensives as above. 9. History of atrial fibrillation on Eliquis, rate controlled, already on a beta gely as well. Cardiology is consulted. 10. Anemia of chronic kidney disease. on Epogen. on hold as supratherapeutic. Check iron stores. extended discussion with patient with plant mechanic and patient wants full treatment and full code. QUAN THORNE MD Nov 02, 2018 09:02
[2018-11-02] MEDS ORDERED: ERGOCALCIFEROL 50,000 UNIT CAP PO SCH (11:00)
[2018-11-02] MEDS: ATORVASTATIN 40 MG TAB PO SCH (21:38)
[2018-11-02] MEDS: ZOLPIDEM 5 MG TAB PO PRN (22:45)
[2018-11-03] VITALS (19 sets, daily range): BP systolic 109–185; BP diastolic 63–87; PULSE 59–77; RESP 18–20
[2018-11-03] MEDS: ACCU-CHEK XX SCH (02:00)
[2018-11-03] MEDS ORDERED: ZIPRASIDONE 20 MG CAP PO ONE (04:00)
[2018-11-03] MEDS: INSULIN ASPART [NOVOLOG] 3 ML PEN SC SCH ×2 (07:55→11:50)
--- NOTE | 2018-11-03 08:27 | CONS ---
Consult Date/Type/Reason Admit Date/Time Nov 01, 2018 at 06:32 Initial Consult Date Date/Time of Note DATE: 11/03/18 TIME: 08:26 Subjective 78-year-old female with past medical history of end-stage renal disease on hemodialysis, history of AFib, history of diabetes, hypertension, history of CVA, history of dementia, history of mineral bone disorder. Patient presents to [facility] with shortness of breath, increased over the last 24-hour. The patient had previous episodes in the past, specifically last month. The patient was noted to have worsening symptoms with minimal exertion and bilateral lower extremity swelling. dialyzing via a recently placed femoral on hd today. improved shortness of breath. PHYSICAL EXAMINATION: HEENT: Normocephalic, atraumatic. Pupils round and reactive to light. Oropharynx has moist mucous membranes. NECK: Supple. HEART: Regular rate and rhythm. LUNGS: Clear to auscultation anteriorly. ABDOMEN: Soft, nontender, nondistended. Bowel sounds present. EXT: 1+ edema bilaterally Objective Vitals Vital Signs Date Temp Pulse Resp B/P (MAP) Pulse Ox O2 O2 Flow FiO2 Time Delivery Rate 11/03/18 97.5 63 20 149/66 92 Room Air 07:21 (93) 11/02/18 2.0 15:50 Intake and Output 11/02/18 11/02/18 11/03/18 1414:59 22:59 06:59 IntakeIntake Total 750 ml 480 ml OutputOutput Total 1 ml BalanceBalance 749 ml 480 ml Results/Medications Result Diagram: 11/02/1862011/02/18620 Results 24 hrs Laboratory Tests Test 11/02/18 08:30 11/02/18 12:15 11/02/18 17:14 11/03/18 07:57 Bedside Glucose 97 94 84 80 Home Meds Reported Medications Apixaban* (Eliquis*) 2.5 Mg Tablet, 1 TAB ORAL BID 11/01/18 Atorvastatin* (Atorvastatin*) 40 Mg Tablet, 1 TAB ORAL QHS 11/01/18 Metoprolol Tartrate* (Lopressor*) 50 Mg Tab, 1 TAB ORAL BID 11/01/18 Lisinopril* (Lisinopril*) 20 Mg Tablet, 1 TAB ORAL BID 11/01/18 Suvorexant (Belsomra) 15 Mg Tablet, 1 TAB ORAL DAILY 11/01/18 Nateglinide* (Nateglinide*) 120 Mg Tablet, 120 MG PO AC MEALS, TAB 11/01/18 Diphenhydramine Hcl (Banophen) 25 Mg Capsule, 1 CAP ORAL QHS PRN for SLEEP 11/01/18 Furosemide* (Furosemide*) 40 Mg Tablet, 1 TAB ORAL DAILY 11/01/18 Ergocalciferol (Vitamin D2) (VITAMIN D2) 50,000 Unit Capsule, 1 CAP ORAL weekly Thursdays11/01/18 Rivastigmine* Patch (Exelon* Patch) 4.6 Mg/24 Hr Patch.td24, 1 PATCH TD DAILY, PATCH 05/24/18 Amlodipine Besylate* (Norvasc*) 5 Mg Tablet, 5 MG PO BID, TAB 05/24/18 Discontinued Reported Medications Rosuvastatin Calcium* (Crestor*) 10 Mg Tablet, 10 MG PO QHS, #30 TAB 05/24/18 Medications Current Medications Amlodipine Besylate (Norvasc) 5 mg BID PO Last administered on 11/02/18 21:38; Admin Dose 5 MG; Start 11/01/18 at 21:00 Apixaban (Eliquis) 2.5 mg BID PO Last administered on 11/02/18 21:38; Admin Dose 2.5 MG; Start 11/01/18 at 21:00 Atorvastatin Calcium (Lipitor) 40 mg QHS PO Last administered on 11/02/18 21:38; Admin Dose 40 MG; Start 11/01/18 at 21:00 Diphenhydramine HCl (Benadryl) 25 mg QHS PRN PO SLEEP Last administered on 11/01/18 21:08; Admin Dose 25 MG; Start 11/01/18 at 11:00 Furosemide (Lasix) 40 mg DAILY PO Last administered on 11/02/18 08:35; Admin Dose 40 MG; Start 11/02/18 at 09:00 Lisinopril (Zestril) 20 mg BID PO Last administered on 11/02/18 21:39; Admin Dose 20 MG; Start 11/01/18 at 21:00 Metoprolol Tartrate (Lopressor) 50 mg BID PO Last administered on 11/02/18 21:39; Admin Dose 50 MG; Start 11/01/18 at 21:00 Nateglinide (Starlix) 120 mg AC MEALS PO Last administered on 11/02/18at 17:14; Admin Dose 120 MG; Start 11/01/18 at 11:20 Rivastigmine Tartrate (Exelon 4.6 Mg/ 24 Hr Patch) 1 patch DAILY TRANSDERM Last administered on 11/02/18at 08:38; Admin Dose 1 PATCH; Start 11/02/18 at 09:00 IV Flush (NS 3 ml) 3 ml PER PROTOCOL IV ; Start 11/01/18 at 11:00 Ondansetron HCl (Zofran Inj) 4 mg Q6H PRN IV NAUSEA/VOMITING; Start 11/01/18 at 11:00 Acetaminophen (Tylenol Tab) 650 mg Q6H PRN PO .PAIN 1-3 OR TEMP; Start 11/01/18 at 11:00 Zolpidem Tartrate (Ambien) 5 mg QHS PRN PO .INSOMNIA Last administered on 11/02/18at 22:45; Admin Dose 5 MG; Start 11/01/18 at 11:00 Heparin Sodium (Porcine) (Heparin (1000 Units/ml)) 7,100 unit AFTER DIALYSIS CATHETER Last administered on 11/01/18at 15:51; Admin Dose 7,100 UNIT; Start 11/01/18 at 13:00 Diagnostic Test (Pha) (Accu-Chek) 1 ea 02 XX Last administered on 11/02/18at 02:25; Admin Dose 1 EA; Start 11/02/18 at 02:00 Insulin Aspart (Novolog Insulin Pen) NOVOLOG *MILD* ALGORITHM WITH MEALS BEDT LUIS SC ; Start 11/01/18 at 17:55 Miscellaneous Information 1 ea NOTE XX ; Start 11/01/18 at 13:30 Glucose (Glutose) 15 gm Q15M PRN PO DECREASED GLUCOSE; Start 11/01/18 at 13:30 Glucose (Glutose) 22.5 gm Q15M PRN PO DECREASED GLUCOSE; Start 11/01/18 at 13:30 Dextrose (D50w Syringe) 25 ml Q15M PRN IV DECREASED GLUCOSE; Start 11/01/18 at 13:30 Dextrose (D50w Syringe) 50 ml Q15M PRN IV DECREASED GLUCOSE; Start 11/01/18 at 13:30 Glucagon (Glucagen) 1 mg Q15M PRN IM DECREASED GLUCOSE; Start 11/01/18 at 13:30 Glucose (Glutose) 15 gm Q15M PRN BUCCAL DECREASED GLUCOSE; Start 11/01/18 at 13:30 Assessment/Plan Hospital Course (Demo Recall) 1. End-stage renal disease on hemodialysis currently. Assess daily for dialysis needs. All medications are dosed appropriately, will likely need a second dialysis tomorrow. 2. Respiratory failure, likely related to volume retention from an inadequate dialysis. The patient had dialysis 2 days ago, questionable compliance as well. Will have cardiology to evaluate. We will get serial troponins, may need repeat echo. 3. hypertension- elevated this am. monitor with aggressive hd. already on lisinopril, metoprolol, and norvasc. - consider switching metoprolol to atenolol which is only beta-gely with proof to have mortality benefit in hd. - consider adding aldactone. 4. Mineral bone disorder. Continue same. Calcium is elevated. Will hold Ergocalciferol, try to see what the prescription as an outpatient dialysis unit. 5. Diabetes. Continue regular medications and sliding scale. 6. History of catheter problems with recently placed tunneled femoral catheter. We will monitor function while she is here. 7. Deep venous thrombosis prophylaxis. Patient is already on Eliquis, should be well controlled. 8. History of cerebrovascular accident and various vasculopathies. Continue Eliquis, statin antihypertensives as above. 9. History of atrial fibrillation on Eliquis, rate controlled, already on a beta gely as well. Cardiology is consulted. 10. Anemia of chronic kidney disease. on Epogen. on hold as supratherapeutic. QUAN THORNE MD Nov 03, 2018 08:27
--- NOTE | 2018-11-03 08:28 | PDOCDIS ---
Discharge Instructions DIAGNOSIS Discharge Diagnosis volume overload. CONDITION [id number] Patient Condition: [id number] Good HOME CARE INSTRUCTIONS: [id number] Special Diet: [id number] renal FOLLOW UP/APPOINTMENTS Follow-up Plan see dr. hill and dr. jeff next week. QUAN THORNE MD Nov 03, 2018 08:28
--- NOTE | 2018-11-03 08:36 | DS ---
Date/Time of Note Date/Time of Note DATE: 11/03/18 TIME: 08:30 Discharge Summary Admission/Discharge Info Admit Date/Time Nov 01, 2018 at 06:32 Discharge Date/Time 11/03 Discharge Diagnosis 1. End-stage renal disease on hemodialysis currently. Assess daily for dialysis needs. All medications are dosed appropriately 2. Respiratory failure, likely related to volume retention from an inadequate dialysis. The patient had dialysis 2 days ago, questionable compliance as well. 3. hypertension-. monitor with aggressive hd. already on lisinopril, metoprolol, and norvasc. - consider switching metoprolol to atenolol which is only beta-gely with proof to have mortality benefit in hd. - consider adding aldactone. 4. Mineral bone disorder. Continue same. Calcium is elevated. Will hold Ergocalciferol, try to adjust the prescription as an outpatient dialysis unit. 5. Diabetes. Continue regular medications and sliding scale. 6. History of catheter problems with recently placed tunneled femoral catheter. We will monitor function while she is here. 7. Deep venous thrombosis prophylaxis. Patient is already on Eliquis, should be well controlled. 8. History of cerebrovascular accident and various vasculopathies. Continue Eliquis, statin antihypertensives as above. 9. History of atrial fibrillation on Eliquis, rate controlled, already on a beta gely as well. Cardiology is consulted. 10. Anemia of chronic kidney disease. on Epogen. on hold as supratherapeutic. Hospital Course patient admitted, dialyzed aggressively. clinically improved. contacted cardiology who suggested she see him next week. discharged with instruction of diet restriction. held ergocalciferol. to be seen on hd. Home Meds Reported Medications Apixaban* (Eliquis*) 2.5 Mg Tablet, 1 TAB ORAL BID 11/01/18 Atorvastatin* (Atorvastatin*) 40 Mg Tablet, 1 TAB ORAL QHS 11/01/18 Metoprolol Tartrate* (Lopressor*) 50 Mg Tab, 1 TAB ORAL BID 11/01/18 Lisinopril* (Lisinopril*) 20 Mg Tablet, 1 TAB ORAL BID 11/01/18 Suvorexant (Belsomra) 15 Mg Tablet, 1 TAB ORAL DAILY 11/01/18 Nateglinide* (Nateglinide*) 120 Mg Tablet, 120 MG PO AC MEALS, TAB 11/01/18 Diphenhydramine Hcl (Banophen) 25 Mg Capsule, 1 CAP ORAL QHS PRN for SLEEP 11/01/18 Furosemide* (Furosemide*) 40 Mg Tablet, 1 TAB ORAL DAILY 11/01/18 Ergocalciferol (Vitamin D2) (VITAMIN D2) 50,000 Unit Capsule, 1 CAP ORAL weekly Thursdays11/01/18 Rivastigmine* Patch (Exelon* Patch) 4.6 Mg/24 Hr Patch.td24, 1 PATCH TD DAILY, PATCH 05/24/18 Amlodipine Besylate* (Norvasc*) 5 Mg Tablet, 5 MG PO BID, TAB 05/24/18 Discontinued Reported Medications Rosuvastatin Calcium* (Crestor*) 10 Mg Tablet, 10 MG PO QHS, #30 TAB 05/24/18 Follow-up Plan see dr. hill and dr. jeff next week. Primary Care Provider Care Physician No Primary Time spent on discharge: > 30 minutes Pending Labs Laboratory Tests Test 11/02/18 12:15 11/02/18 17:14 11/03/18 07:57 Bedside Glucose 94 mg/dL (70-220) 84 mg/dL (70-220) 80 mg/dL (70-220) QUAN THORNE MD Nov 03, 2018 08:36
[2018-11-03] MEDS: FUROSEMIDE 40 MG TAB PO SCH (08:39)
[2018-11-03] MEDS: LISINOPRIL 20 MG TAB PO SCH (08:39)
[2018-11-03] MEDS: AMLODIPINE 5 MG TAB PO SCH (08:39)
[2018-11-03] MEDS: APIXABAN 5 MG TABLET PO SCH (08:40)
[2018-11-03] MEDS: RIVASTIGMINE 4.6MG/24H PATCH TRANSDERM SCH (08:40)
[2018-11-03] MEDS: NATEGLINIDE 120 MG TAB PO SCH ×2 (08:40→11:56)
[2018-11-03] MEDS: METOPROLOL 50 MG TAB PO SCH (08:40)
[2018-11-03] MEDS: HEPARIN 1000 UNITS/ML 10 ML INJ CATHETER SCH (12:47)
== END 2018-11-03 15:47 | disposition home or self-care (01) ==
LOC: E/R 05:17 → TEL 06:32 → INTOOBSV 06:32
PROVIDERS: ADMIT Internal Medicine; ATTEND Internal Medicine
DX: I12.0 Hypertensive chronic kidney disease with stage 5 chronic kidney disease or end stage renal disease (principal); J96.01 Acute respiratory failure with hypoxia; E11.22 Type 2 diabetes mellitus with diabetic chronic kidney disease; N18.6 End stage renal disease; Z99.2 Dependence on renal dialysis; I25.10 Atherosclerotic heart disease of native coronary artery without angina pectoris; Z95.5 Presence of coronary angioplasty implant and graft; I48.91 Unspecified atrial fibrillation; F03.90 Unspecified dementia, unspecified severity, without behavioral disturbance, psychotic disturbance, mood disturbance, and anxiety; D63.1 Anemia in chronic kidney disease; M89.9 Disorder of bone, unspecified; Z86.73 Personal history of transient ischemic attack (TIA), and cerebral infarction without residual deficits; Z79.01 Long term (current) use of anticoagulants
CPT/HCPCS: 36415; 71045; 80053; 82962; 83735; 83880; 84484; 85025; 85610; 85730; 87340; 90935; 93005; 99285; G0378; J1644; J1815; J2060

== ENCOUNTER 2018-12-24 11:21 | Inpatient (IN) | payer MEDICARE, OTHER ==
[2018-12-24] VITALS (15 sets, daily range): BP systolic 98–139; BP diastolic 52–95; PULSE 67–92; RESP 16–28; Ht 152.4 cm; Wt 82.7 kg
[~2018-12-24] VITALS: Ht 152.4 cm; Wt 82.7 kg
[~2018-12-24 11:21] MED LIST changes: +APIX2.5T ORAL; +ATOR40TA68 ORAL; +DIPH25CA42 ORAL; +FURO40TA4 ORAL; +LISI-471 ORAL; +METO-429 ORAL; +NATE120T PO; -RSV10T PO; +SUVO15TA2 ORAL
[2018-12-24] MEDS ORDERED: ALBUTEROL 0.5% (NEB) 2.5 MG/0.5 ML AMP INH STA (13:24)
[2018-12-24] MEDS ORDERED: INSULIN REGULAR, HUMAN 100 UNIT/1 ML 3ML VIAL IVP STA (13:24)
[2018-12-24] MEDS ORDERED: CEFEPIME 2GM/50 ML (PMX) 50 ML IVPB STA (13:24)
[2018-12-24] MEDS ORDERED: DEXTROSE 50% 50 ML SYRINGE IV PRN ×3 (13:30→22:30)
[2018-12-24] MEDS ORDERED: ONDANSETRON 4 MG INJ IV PRN ×2 (15:30→22:00)
[2018-12-24] MEDS: ACETAMINOPHEN 325 MG TAB PO PRN ×2 (17:27→22:11)
[2018-12-24] MEDS ORDERED: ALBUMIN HUMAN 25% 100 ML IV PRN (21:30)
[2018-12-24] MEDS ORDERED: NACL 0.9% 3 ML SYG IV SCH (22:00)
[2018-12-24] MEDS ORDERED: ACETAMINOPHEN 325 MG TAB PO PRN (22:00)
[2018-12-24] MEDS ORDERED: GLUCOSE GEL 15 GRAM TUBE BUCCAL PRN (22:30)
[2018-12-24] MEDS ORDERED: GLUCOSE GEL 15 GRAM TUBE PO PRN ×2 (22:30)
[2018-12-24] MEDS ORDERED: GLUCAGON 1 MG INJ IM PRN (22:30)
[2018-12-24] MEDS ORDERED: AZITHROMYCIN 500MG/NS (PMX) 250 ML IVPB SCH (23:00)
[2018-12-25] VITALS (31 sets, daily range): BP systolic 72–147; BP diastolic 45–78; PULSE 68–99; RESP 18–30
[2018-12-25] MEDS: HEPARIN 1000 UNITS/ML 10 ML INJ CATHETER SCH ×2 (00:33→12:19)
[2018-12-25] MEDS: ATORVASTATIN 40 MG TAB PO SCH ×2 (00:46→20:31)
[2018-12-25] MEDS: LISINOPRIL 20 MG TAB PO SCH ×3 (00:52→20:32)
[2018-12-25] MEDS: AMLODIPINE 5 MG TAB PO SCH ×3 (00:52→20:32)
[2018-12-25] MEDS: METOPROLOL 50 MG TAB PO SCH ×3 (00:52→20:32)
[2018-12-25] MEDS: ALBUTEROL/IPRATROPIUM (NEB) 3 ML AMP HHN PRN ×2 (01:30→19:39)
[2018-12-25] MEDS: ACCU-CHEK XX SCH ×5 (02:00→20:30)
[2018-12-25] MEDS ORDERED: LORAZEPAM 2 MG INJ IV ONE (02:38)
[2018-12-25] MEDS ORDERED: PIPER-TAZO 2.25 GM (PMX) 50 ML IVPB SCH (03:00)
[2018-12-25] MEDS ORDERED: VANCOMYCIN IV PER PHARMACY XX SCH (03:30)
[2018-12-25] MEDS ORDERED: VANCOMYCIN 1.5 GM/NS 250 ML 250 ML IVPB SCH (04:30)
[2018-12-25] MEDS: NATEGLINIDE 120 MG TAB PO SCH ×3 (07:00→17:30)
[2018-12-25] MEDS: INSULIN ASPART [NOVOLOG] 3 ML PEN SC SCH ×4 (08:00→20:30)
[2018-12-25] MEDS ORDERED: HEPARIN 5,000 UNIT/1 ML VIAL SC SCH (09:00)
[2018-12-25] MEDS ORDERED: CEFTRIAXONE 1 GM/50 ML (PMX) 50 ML IVPB SCH (09:00)
[2018-12-25] MEDS ORDERED: SUVOREXANT ORAL SCH (09:00)
[2018-12-25] MEDS: APIXABAN 5 MG TABLET PO SCH ×2 (09:00→20:31)
[2018-12-25] MEDS: FUROSEMIDE 40 MG TAB PO SCH (09:00)
[2018-12-25] MEDS: [UNRECOGNIZED DRUG - REMARK] XX SCH ×2 (10:00→17:54)
[2018-12-25] MEDS: CEFEPIME 1GM/50 ML (PMX) 50 ML IVPB SCH (14:04)
[2018-12-25] MEDS: RIVASTIGMINE 4.6MG/24H PATCH TRANSDERM SCH (14:05)
[2018-12-25] MEDS: DEXTROSE 10% 1,000 ML IV SCH (22:39)
[2018-12-25] MEDS: LORAZEPAM 2 MG INJ IV PRN (23:05)
[2018-12-26] VITALS (10 sets, daily range): BP systolic 136–190; BP diastolic 63–90; PULSE 72–99; RESP 18–22
[2018-12-26] MEDS ORDERED: LORAZEPAM 2 MG INJ IV ONE (01:12)
[2018-12-26] MEDS: ACCU-CHEK XX SCH ×5 (02:00→20:53)
[2018-12-26] MEDS: [UNRECOGNIZED DRUG - REMARK] XX SCH ×2 (02:00→09:02)
[2018-12-26] MEDS ORDERED: PENDING SANTYL ORDER FOR WOUND CARE XX PRN (02:30)
[2018-12-26] MEDS ORDERED: DIPHENHYDRAMINE 50 MG INJ IV ONE (03:45)
[2018-12-26] MEDS ORDERED: HALOPERIDOL 5 MG INJ IM ONE (03:45)
[2018-12-26] MEDS: INSULIN ASPART [NOVOLOG] 3 ML PEN SC SCH ×4 (08:00→20:52)
[2018-12-26] MEDS: FUROSEMIDE 40 MG TAB PO SCH (09:00)
[2018-12-26] MEDS: METOPROLOL 50 MG TAB PO SCH ×2 (09:00→21:00)
[2018-12-26] MEDS: AMLODIPINE 5 MG TAB PO SCH ×2 (09:00→21:00)
[2018-12-26] MEDS: LISINOPRIL 20 MG TAB PO SCH ×2 (09:00→21:00)
[2018-12-26] MEDS: APIXABAN 5 MG TABLET PO SCH ×2 (09:00→20:50)
[2018-12-26] MEDS: NATEGLINIDE 120 MG TAB PO SCH ×2 (09:01→11:30)
[2018-12-26] MEDS: CEFEPIME 1GM/50 ML (PMX) 50 ML IVPB SCH (09:01)
[2018-12-26] MEDS: RIVASTIGMINE 4.6MG/24H PATCH TRANSDERM SCH (09:02)
[2018-12-26] MEDS: LORAZEPAM 2 MG INJ IV PRN (11:38)
[2018-12-26] MEDS ORDERED: ZOLPIDEM 5 MG TAB PO PRN (14:00)
[2018-12-26] MEDS ORDERED: morphine 2 MG INJ IV ONE (15:30)
[2018-12-26] MEDS ORDERED: IODIXANOL LOCM 100 ML BTL ONE (15:51)
[2018-12-26] MEDS ORDERED: SOD CHLORIDE 0.9% 100 ML ONE (15:51)
[2018-12-26] MEDS: ATORVASTATIN 40 MG TAB PO SCH (20:50)
[2018-12-26] MEDS: DEXTROSE 10% 1,000 ML IV SCH (21:00)
[2018-12-26] MEDS: ALBUTEROL/IPRATROPIUM (NEB) 3 ML AMP HHN PRN (22:01)
[2018-12-27] VITALS (20 sets, daily range): BP systolic 117–179; BP diastolic 56–97; PULSE 73–97; RESP 18–20
[2018-12-27] MEDS: ACCU-CHEK XX SCH ×5 (02:00→21:23)
[2018-12-27] MEDS ORDERED: METOPROLOL 5 MG INJ IV ONE (07:00)
[2018-12-27] MEDS: INSULIN ASPART [NOVOLOG] 3 ML PEN SC SCH ×4 (07:45→21:00)
[2018-12-27] MEDS: APIXABAN 5 MG TABLET PO SCH (09:27)
[2018-12-27] MEDS: CEFEPIME 1GM/50 ML (PMX) 50 ML IVPB SCH (09:27)
[2018-12-27] MEDS: METOPROLOL 50 MG TAB PO SCH ×2 (09:27→21:33)
[2018-12-27] MEDS: FUROSEMIDE 40 MG TAB PO SCH (09:28)
[2018-12-27] MEDS: LISINOPRIL 20 MG TAB PO SCH ×2 (09:28→21:34)
[2018-12-27] MEDS: AMLODIPINE 5 MG TAB PO SCH ×2 (09:28→21:33)
[2018-12-27] MEDS: POTASSIUM CHLORIDE (SR) 20 MEQ TAB PO SCH ×2 (12:31→17:24)
[2018-12-27] MEDS: LORAZEPAM 2 MG INJ IV PRN (18:33)
[2018-12-27] MEDS: ATORVASTATIN 40 MG TAB PO SCH (21:32)
[2018-12-28] VITALS (22 sets, daily range): BP systolic 107–200; BP diastolic 60–150; PULSE 70–95; RESP 18–24
[2018-12-28] MEDS ORDERED: HALOPERIDOL 5 MG INJ IM ONE
[2018-12-28] MEDS ORDERED: LORAZEPAM 2 MG INJ IV ONE
[2018-12-28] MEDS: ACCU-CHEK XX SCH ×5 (02:00→21:00)
[2018-12-28] MEDS: INSULIN ASPART [NOVOLOG] 3 ML PEN SC SCH ×4 (07:49→21:00)
[2018-12-28] MEDS ORDERED: FUROSEMIDE 20 MG INJ IV SCH (08:30)
[2018-12-28] MEDS ORDERED: SOD CHLORIDE 0.9% 100 ML ONE (08:48)
[2018-12-28] MEDS ORDERED: IODIXANOL LOCM 100 ML BTL ONE (08:48)
[2018-12-28] MEDS: AMLODIPINE 5 MG TAB PO SCH ×2 (09:00→23:06)
[2018-12-28] MEDS: METOPROLOL 50 MG TAB PO SCH ×2 (09:00→23:06)
[2018-12-28] MEDS: LISINOPRIL 20 MG TAB PO SCH ×2 (09:00→23:04)
[2018-12-28] MEDS: CEFEPIME 1GM/50 ML (PMX) 50 ML IVPB SCH (10:55)
[2018-12-28] MEDS: hydrALAzine 20 MG INJ IV PRN (11:44)
[2018-12-28] MEDS ORDERED: HEPARIN 25000 UNITS/250 ML 250 ML IV SCH (12:30)
[2018-12-28] MEDS ORDERED: HEPARIN 1000 UNITS/ML 10 ML INJ IV PRN ×2 (12:30)
[2018-12-28] MEDS ORDERED: LIDOCAINE 1% (MPF) 5 ML VIAL ONE (15:32)
[2018-12-28] MEDS ORDERED: LIDOCAINE 1% (MDV) 20 ML INJ SC STA (20:22)
[2018-12-28] MEDS: HEPARIN 1000 UNITS/ML 10 ML INJ CATHETER SCH (22:18)
[2018-12-28] MEDS: ATORVASTATIN 40 MG TAB PO SCH (23:05)
[2018-12-29] MEDS: ACCU-CHEK XX SCH ×5 (02:00→21:00)
[2018-12-29] MEDS: HEPARIN 25000 UNITS/250 ML 250 ML IV SCH ×2 (02:59→15:13)
[2018-12-29 03:52] VITALS: BP 133/60; PULSE 84; RESP 18
[2018-12-29 08:00] VITALS: BP 140/72; PULSE 79; RESP 17
[2018-12-29] MEDS: INSULIN ASPART [NOVOLOG] 3 ML PEN SC SCH ×4 (08:00→21:00)
[2018-12-29] MEDS ORDERED: LIDOCAINE 1% (MDV) 20 ML INJ ONE (08:13)
[2018-12-29] MEDS: AMLODIPINE 5 MG TAB PO SCH ×2 (09:17→21:00)
[2018-12-29] MEDS: CEFEPIME 1GM/50 ML (PMX) 50 ML IVPB SCH (09:17)
[2018-12-29] MEDS: METOPROLOL 50 MG TAB PO SCH ×2 (09:18→21:00)
[2018-12-29] MEDS: LISINOPRIL 20 MG TAB PO SCH ×2 (09:18→21:33)
[2018-12-29] MEDS: LORAZEPAM 2 MG INJ IV PRN (10:50)
[2018-12-29 12:00] VITALS: BP 137/65; PULSE 65; RESP 16
[2018-12-29 18:00] VITALS: BP 132/61; PULSE 77; RESP 16
[2018-12-29] MEDS ORDERED: HALOPERIDOL 5 MG INJ IM ONE (19:00)
[2018-12-29 20:00] VITALS: BP 109/60; PULSE 59; RESP 16
[2018-12-29] MEDS: LACTOBACILLUS RHAMNOSUS CAP PO SCH (21:28)
[2018-12-29] MEDS: ATORVASTATIN 40 MG TAB PO SCH (21:30)
[2018-12-30] VITALS: BP 128/84; PULSE 84; RESP 20
[2018-12-30] MEDS: ACCU-CHEK XX SCH ×5 (02:00→21:00)
[2018-12-30 04:00] VITALS: BP 144/69; PULSE 86; RESP 18
[2018-12-30 07:29] VITALS: BP 166/72; PULSE 83; RESP 17
[2018-12-30] MEDS: INSULIN ASPART [NOVOLOG] 3 ML PEN SC SCH ×4 (08:00→21:00)
[2018-12-30] MEDS: CEFEPIME 1GM/50 ML (PMX) 50 ML IVPB SCH (10:01)
[2018-12-30] MEDS ORDERED: LIDOCAINE 1% (MPF) 5 ML VIAL ONE ×2 (12:06)
[2018-12-30 12:25] VITALS: BP 147/63; PULSE 79; RESP 17
[2018-12-30] MEDS ORDERED: METHIMAZOLE 10 MG TAB PO SCH (12:30)
[2018-12-30] MEDS: AMLODIPINE 5 MG TAB PO SCH ×2 (13:48→21:16)
[2018-12-30] MEDS: LACTOBACILLUS RHAMNOSUS CAP PO SCH ×2 (13:48→21:15)
[2018-12-30] MEDS: METOPROLOL 50 MG TAB PO SCH ×2 (13:49→21:17)
[2018-12-30] MEDS: SENNA/DOCUSATE NA (8.6MG/50MG) TAB PO SCH (13:49)
[2018-12-30] MEDS: LISINOPRIL 20 MG TAB PO SCH ×2 (13:50→21:16)
[2018-12-30] MEDS: FAMOTIDINE 20 MG TAB PO SCH (13:50)
[2018-12-30] MEDS: METHIMAZOLE 5 MG TAB PO SCH (15:12)
[2018-12-30 15:45] VITALS: BP 130/65; PULSE 86; RESP 17
[2018-12-30 19:27] VITALS: BP 142/63; PULSE 80; RESP 18
[2018-12-30] MEDS: ATORVASTATIN 40 MG TAB PO SCH (21:16)
[2018-12-30] MEDS: LORAZEPAM 2 MG INJ IV PRN (23:59)
[2018-12-31] VITALS (10 sets, daily range): BP systolic 126–166; BP diastolic 59–90; PULSE 63–86; RESP 16–20
[2018-12-31] MEDS: ACCU-CHEK XX SCH ×5 (02:00→21:00)
[2018-12-31] MEDS: INSULIN ASPART [NOVOLOG] 3 ML PEN SC SCH ×4 (07:37→21:00)
[2018-12-31] MEDS: CEFEPIME 1GM/50 ML (PMX) 50 ML IVPB SCH (08:45)
[2018-12-31] MEDS: LISINOPRIL 20 MG TAB PO SCH ×2 (08:46→22:16)
[2018-12-31] MEDS: SENNA/DOCUSATE NA (8.6MG/50MG) TAB PO SCH (08:46)
[2018-12-31] MEDS: FAMOTIDINE 20 MG TAB PO SCH (08:46)
[2018-12-31] MEDS: LACTOBACILLUS RHAMNOSUS CAP PO SCH ×2 (08:46→22:14)
[2018-12-31] MEDS: METHIMAZOLE 5 MG TAB PO SCH (08:46)
[2018-12-31] MEDS: AMLODIPINE 5 MG TAB PO SCH ×2 (08:46→22:16)
[2018-12-31] MEDS: METOPROLOL 50 MG TAB PO SCH ×2 (08:47→22:15)
[2018-12-31] MEDS: ATORVASTATIN 40 MG TAB PO SCH (22:14)
[2019-01-01] VITALS (21 sets, daily range): BP systolic 81–204; BP diastolic 41–90; PULSE 70–97; RESP 17–20
[2019-01-01] MEDS: ACCU-CHEK XX SCH ×5 (02:00→21:00)
[2019-01-01] MEDS: LORAZEPAM 2 MG INJ IV PRN (04:46)
[2019-01-01] MEDS: INSULIN ASPART [NOVOLOG] 3 ML PEN SC SCH ×4 (07:34→21:00)
[2019-01-01] MEDS: METHIMAZOLE 5 MG TAB PO SCH (09:00)
[2019-01-01] MEDS: SENNA/DOCUSATE NA (8.6MG/50MG) TAB PO SCH (09:00)
[2019-01-01] MEDS: LACTOBACILLUS RHAMNOSUS CAP PO SCH ×2 (09:00→22:21)
[2019-01-01] MEDS: FAMOTIDINE 20 MG TAB PO SCH (09:00)
[2019-01-01] MEDS: CEFEPIME 1GM/50 ML (PMX) 50 ML IVPB SCH (09:56)
[2019-01-01] MEDS: AMLODIPINE 5 MG TAB PO SCH ×2 (09:57→21:00)
[2019-01-01] MEDS: METOPROLOL 50 MG TAB PO SCH ×2 (09:57→21:00)
[2019-01-01] MEDS: LISINOPRIL 20 MG TAB PO SCH ×2 (09:57→21:00)
[2019-01-01] MEDS: hydrALAzine 20 MG INJ IV PRN (12:42)
[2019-01-01] MEDS ORDERED: HEPARIN 1000 UNITS/NS (A-LINE) 0 ML ONE (15:36)
[2019-01-01] MEDS ORDERED: HEPARIN 1000 UNITS/ML 10 ML INJ ONE (15:36)
[2019-01-01] MEDS ORDERED: LIDOCAINE 1% (MDV) 20 ML INJ ONE ×3 (15:36→17:07)
[2019-01-01] MEDS: CEFAZOLIN 2 GM/50 ML (PMX) 50 ML IVPB SCH (17:43)
[2019-01-01] MEDS ORDERED: IOHEXOL 100 ML ONE (18:24)
[2019-01-01] MEDS ORDERED: SOD CHLORIDE 0.9% 100 ML ONE (18:24)
[2019-01-01] MEDS: ATORVASTATIN 40 MG TAB PO SCH (22:22)
[2019-01-01] MEDS ORDERED: HEPARIN 1000 UNITS/ML 10 ML INJ CATHETER SCH (23:30)
[2019-01-02] VITALS (11 sets, daily range): BP systolic 104–167; BP diastolic 52–77; PULSE 77–92; RESP 18–22
[2019-01-02] MEDS: ACCU-CHEK XX SCH ×4 (00:15→17:07)
[2019-01-02] MEDS: INSULIN ASPART [NOVOLOG] 3 ML PEN SC SCH ×3 (07:59→17:07)
[2019-01-02] MEDS: FAMOTIDINE 20 MG TAB PO SCH (09:10)
[2019-01-02] MEDS: SENNA/DOCUSATE NA (8.6MG/50MG) TAB PO SCH (09:11)
[2019-01-02] MEDS: LACTOBACILLUS RHAMNOSUS CAP PO SCH (09:11)
[2019-01-02] MEDS: METHIMAZOLE 5 MG TAB PO SCH (09:11)
[2019-01-02] MEDS: LISINOPRIL 20 MG TAB PO SCH (09:11)
[2019-01-02] MEDS: METOPROLOL 50 MG TAB PO SCH (09:11)
[2019-01-02] MEDS: AMLODIPINE 5 MG TAB PO SCH (09:12)
[2019-01-02] MEDS: hydrALAzine 20 MG INJ IV PRN (12:43)
[2019-01-02] MEDS ORDERED: APIXABAN 2.5 MG TABLET PO SCH (16:30)
[2019-01-02] MEDS: CEFAZOLIN 2 GM/50 ML (PMX) 50 ML IVPB SCH (17:06)
== END 2019-01-02 18:33 | disposition home health service (06) | DRG 871 ==
LOC: E/R 11:21 → 6WM 15:27
PROVIDERS: ADMIT Internal Medicine; ATTEND Internal Medicine
PROC: 5A1D70Z Performance of Urinary Filtration, Intermittent, Less than 6 Hours Per Day (ICD-10-PCS; 2018-12-24)
PROC: 5A1D70Z Performance of Urinary Filtration, Intermittent, Less than 6 Hours Per Day (ICD-10-PCS; 2018-12-25)
PROC: 5A1D70Z Performance of Urinary Filtration, Intermittent, Less than 6 Hours Per Day (ICD-10-PCS; 2018-12-26)
PROC: 0W9930Z Drainage of Right Pleural Cavity with Drainage Device, Percutaneous Approach (ICD-10-PCS; 2018-12-28)
PROC: 5A1D70Z Performance of Urinary Filtration, Intermittent, Less than 6 Hours Per Day (ICD-10-PCS; 2018-12-28)
PROC: 0W9B3ZZ Drainage of Left Pleural Cavity, Percutaneous Approach (ICD-10-PCS; principal; 2018-12-30)
PROC: 02H633Z Insertion of Infusion Device into Right Atrium, Percutaneous Approach (ICD-10-PCS; 2019-01-01)
PROC: B214YZZ Fluoroscopy of Right Heart using Other Contrast (ICD-10-PCS; 2019-01-01)
PROC: 5A1D70Z Performance of Urinary Filtration, Intermittent, Less than 6 Hours Per Day (ICD-10-PCS; 2019-01-01)
DX: A41.9 Sepsis, unspecified organism (principal); N18.6 End stage renal disease; I50.33 Acute on chronic diastolic (congestive) heart failure; J18.9 Pneumonia, unspecified organism; J96.01 Acute respiratory failure with hypoxia; J96.02 Acute respiratory failure with hypercapnia; I26.99 Other pulmonary embolism without acute cor pulmonale; I13.0 Hypertensive heart and chronic kidney disease with heart failure and stage 1 through stage 4 chronic kidney disease, or unspecified chronic kidney disease; G93.40 Encephalopathy, unspecified; N39.0 Urinary tract infection, site not specified; J90 Pleural effusion, not elsewhere classified; E11.8 Type 2 diabetes mellitus with unspecified complications; I48.2 Chronic atrial fibrillation; E87.5 Hyperkalemia; E87.70 Fluid overload, unspecified; I27.20 Pulmonary hypertension, unspecified; E05.90 Thyrotoxicosis, unspecified without thyrotoxic crisis or storm; F03.90 Unspecified dementia, unspecified severity, without behavioral disturbance, psychotic disturbance, mood disturbance, and anxiety; D64.9 Anemia, unspecified; I25.10 Atherosclerotic heart disease of native coronary artery without angina pectoris; E78.5 Hyperlipidemia, unspecified; B95.61 Methicillin susceptible Staphylococcus aureus infection as the cause of diseases classified elsewhere; B96.20 Unspecified Escherichia coli [E. coli] as the cause of diseases classified elsewhere; Z99.2 Dependence on renal dialysis; Z79.4 Long term (current) use of insulin
CPT/HCPCS: 36415; 36600; 71045; 71275; 75635; 76942; 80048; 80053; 80061; 80069; 80202; 81001; 82550; 82553; 82803; 82962; 83036; 83605; 83735; 84100; 84436; 84443; 84479; 84484; 85025; 85610; 85730; 87045; 87086; 87340; 88104; 88305; 90935; 92526; 92610; 93005; 93306; 93922; 94640; 94660; 94664; 96374; 96375; 97116; 97163; 97530; A4310; J0360; J0456; J0690; J0692; J1200; J1630; J1644; J1815; J2060; J2270; J2543; J3370; P9047; Q9967